=== PATIENT | female | born 1955 | race Caucasian/White ===

== ENCOUNTER 2017-04-24 10:35 | Day surgery (SDC) | payer SELFPAY ==
[2017-04-24 10:57] VITALS: BP 123/77
[2017-04-24] MEDS ORDERED: Dexamethasone 10 MG, Admixture Fee 1 EACH in Sodium Chloride 0.9% 50 ML IVPB SCH (11:15)
[2017-04-24] MEDS ORDERED: ADMIXTURE FEE IVPB SCH ×7 (11:15→11:45)
[2017-04-24] MEDS ORDERED: Palonosetron HCl 0.25 MG, Admixture Fee 1 EACH in Sodium Chloride 0.9% 50 ML IVPB SCH (11:15)
[2017-04-24] MEDS ORDERED: WATER IVPB SCH ×6 (11:15→11:30)
[2017-04-24] MEDS ORDERED: DIPHENHYDRAMINE HCL IVPB SCH (11:15)
[2017-04-24] MEDS ORDERED: SODIUM CHLORIDE IVPB SCH ×4 (11:15→11:45)
[2017-04-24] MEDS ORDERED: DEXTROSE IVPB SCH ×3 (11:15)
[2017-04-24] MEDS ORDERED: OXALIPLATIN IVPB SCH ×6 (11:15→11:30)
[2017-04-24] MEDS ORDERED: LEUCOVORIN CALCIUM IVPB SCH (11:15)
[2017-04-24] MEDS ORDERED: FLUOROURACIL IVPB SCH (11:15)
[2017-04-24] MEDS ORDERED: DEXTROSE 5% IVPB SCH ×3 (11:30)
[2017-04-24] MEDS ORDERED: BEVACIZUMAB IVPB SCH (11:45)
[2017-04-24] MEDS ORDERED: Sodium Chloride 0.9% 20 ML ONE (13:47)
[2017-04-24] MEDS ORDERED: FLU VACC QS2017-18 36 mo. & older 0.5 ML SYRINGE IM ONE (21:00)
== END 2017-04-24 15:57 | disposition home or self-care (01) ==
LOC: ONC/OP 10:35
PROVIDERS: ATTEND Internal Medicine Hematology & Oncology
DX: Z51.11 Encounter for antineoplastic chemotherapy (principal); C18.9 Malignant neoplasm of colon, unspecified; C78.7 Secondary malignant neoplasm of liver and intrahepatic bile duct; C78.6 Secondary malignant neoplasm of retroperitoneum and peritoneum; J44.9 Chronic obstructive pulmonary disease, unspecified; I25.5 Ischemic cardiomyopathy; M81.0 Age-related osteoporosis without current pathological fracture; Z88.1 Allergy status to other antibiotic agents; Z90.49 Acquired absence of other specified parts of digestive tract; Z90.721 Acquired absence of ovaries, unilateral; Z98.890 Other specified postprocedural states; Z85.828 Personal history of other malignant neoplasm of skin; Z80.8 Family history of malignant neoplasm of other organs or systems
CPT/HCPCS: 96367; 96413; 96415; 96417; A4216; J0640; J1100; J1200; J1642; J2469; J7050; J7070; J9190; J9263

== ENCOUNTER 2017-05-08 09:46 | Day surgery (SDC) | payer SELFPAY ==
[2017-05-08 10:03] VITALS: BP 121/72
[2017-05-08] MEDS ORDERED: DIPHENHYDRAMINE HCL IVPB SCH (10:45)
[2017-05-08] MEDS ORDERED: FLUOROURACIL IVPB SCH (10:45)
[2017-05-08] MEDS ORDERED: ADMIXTURE FEE IVPB SCH ×4 (10:45→11:00)
[2017-05-08] MEDS ORDERED: Palonosetron HCl 0.25 MG, Admixture Fee 1 EACH in Sodium Chloride 0.9% 50 ML IVPB SCH (10:45)
[2017-05-08] MEDS ORDERED: SODIUM CHLORIDE IVPB SCH ×4 (10:45→11:00)
[2017-05-08] MEDS ORDERED: Dexamethasone 10 MG, Admixture Fee 1 EACH in Sodium Chloride 0.9% 50 ML IVPB SCH (10:45)
[2017-05-08] MEDS ORDERED: LEUCOVORIN CALCIUM IVPB SCH (10:45)
[2017-05-08] MEDS ORDERED: DEXTROSE 5% IVPB SCH ×3 (11:00)
[2017-05-08] MEDS ORDERED: OXALIPLATIN IVPB SCH ×3 (11:00)
[2017-05-08] MEDS ORDERED: BEVACIZUMAB IVPB SCH (11:00)
[2017-05-08] MEDS ORDERED: WATER IVPB SCH ×3 (11:00)
[2017-05-08] MEDS ORDERED: Sodium Chloride 0.9% 20 ML ONE (12:13)
== END 2017-05-08 15:24 | disposition home or self-care (01) ==
LOC: ONC/OP 09:46
PROVIDERS: ATTEND Internal Medicine Hematology & Oncology
DX: Z51.11 Encounter for antineoplastic chemotherapy (principal); C18.5 Malignant neoplasm of splenic flexure; J44.9 Chronic obstructive pulmonary disease, unspecified; I25.5 Ischemic cardiomyopathy; Z88.1 Allergy status to other antibiotic agents; Z90.49 Acquired absence of other specified parts of digestive tract; Z98.890 Other specified postprocedural states; Z86.73 Personal history of transient ischemic attack (TIA), and cerebral infarction without residual deficits; Z85.828 Personal history of other malignant neoplasm of skin; Z80.8 Family history of malignant neoplasm of other organs or systems
CPT/HCPCS: 96367; 96413; 96415; 96417; A4216; J0640; J1100; J1200; J2469; J7050; J7070; J9035; J9190; J9263

== ENCOUNTER 2017-05-22 11:06 | Day surgery (SDC) | payer SELFPAY ==
[2017-05-22] MEDS ORDERED: Sodium Chloride 0.9% 20 ML ONE (11:23)
[2017-05-22] MEDS ORDERED: Palonosetron HCl 0.25 MG, Admixture Fee 1 EACH in Sodium Chloride 0.9% 50 ML IVPB SCH (11:30)
[2017-05-22] MEDS ORDERED: ADMIXTURE FEE IVPB SCH ×6 (11:45)
[2017-05-22] MEDS ORDERED: BEVACIZUMAB IVPB SCH (11:45)
[2017-05-22] MEDS ORDERED: SODIUM CHLORIDE IVPB SCH ×3 (11:45)
[2017-05-22] MEDS ORDERED: LEUCOVORIN CALCIUM IVPB SCH (11:45)
[2017-05-22] MEDS ORDERED: diphenhydrAMINE 50 MG/ML VIAL IVP SCH (11:45)
[2017-05-22] MEDS ORDERED: DEXTROSE IVPB SCH ×3 (11:45)
[2017-05-22] MEDS ORDERED: Dexamethasone 10 MG, Admixture Fee 1 EACH in Sodium Chloride 0.9% 50 ML IVPB SCH (11:45)
[2017-05-22] MEDS ORDERED: FLUOROURACIL IVPB SCH (11:45)
[2017-05-22] MEDS ORDERED: WATER IVPB SCH ×3 (11:45)
[2017-05-22] MEDS ORDERED: OXALIPLATIN IVPB SCH ×3 (11:45)
[2017-05-22 14:02] LABS: Bilirubin Negative (Negative); Blood, Urine Negative (Negative); Glucose, Urine (Dipstick) Negative (Negative); Ketone, Urine Negative (Negative); Nitrite Negative (Negative); Protein, Urine (Dipstick) Negative (Neg-Trace); Urobilinogen 0.2 mg/dL (0.2-1.0)
[2017-05-22 14:08] LABS: Bacteria/HPF None Seen HPF (None Seen); Hyaline Casts/LPF 0-3 HYALINE CAST LPF (0-3 Hyaline); RBC/HPF None Seen HPF (0-3); Squamous Epithelial None Seen HPF (0-3); WBC/HPF None Seen HPF (0-3)
== END 2017-05-22 17:01 | disposition home or self-care (01) ==
LOC: ONC/OP 11:06
PROVIDERS: ATTEND Internal Medicine Hematology & Oncology
DX: Z51.11 Encounter for antineoplastic chemotherapy (principal); C18.5 Malignant neoplasm of splenic flexure; C77.9 Secondary and unspecified malignant neoplasm of lymph node, unspecified; C78.7 Secondary malignant neoplasm of liver and intrahepatic bile duct; J42 Unspecified chronic bronchitis; I25.5 Ischemic cardiomyopathy; M81.0 Age-related osteoporosis without current pathological fracture; Z79.01 Long term (current) use of anticoagulants; Z79.899 Other long term (current) drug therapy; Z90.721 Acquired absence of ovaries, unilateral; Z90.79 Acquired absence of other genital organ(s); Z90.49 Acquired absence of other specified parts of digestive tract; Z98.890 Other specified postprocedural states; Z88.1 Allergy status to other antibiotic agents; Z87.891 Personal history of nicotine dependence; Z86.718 Personal history of other venous thrombosis and embolism; Z85.828 Personal history of other malignant neoplasm of skin; Z80.8 Family history of malignant neoplasm of other organs or systems
CPT/HCPCS: 81003; 81015; 87086; 96367; 96413; 96415; 96417; 99211; A4216; G0463; J0640; J1100; J1200; J2469; J7050; J7070; J9035; J9190; J9263

== ENCOUNTER 2017-06-05 10:48 | Day surgery (SDC) | payer SELFPAY, OTHER ==
[2017-06-05] MEDS ORDERED: Sodium Chloride 0.9% 20 ML ONE (10:55)
[2017-06-05] MEDS ORDERED: Palonosetron HCl 0.25 MG, Admixture Fee 1 EACH in Sodium Chloride 0.9% 50 ML IVPB SCH (11:30)
[2017-06-05] MEDS ORDERED: ADMIXTURE FEE IVPB SCH ×6 (11:30)
[2017-06-05] MEDS ORDERED: LEUCOVORIN CALCIUM IVPB SCH (11:30)
[2017-06-05] MEDS ORDERED: FLUOROURACIL IVPB SCH (11:30)
[2017-06-05] MEDS ORDERED: DEXTROSE IVPB SCH ×3 (11:30)
[2017-06-05] MEDS ORDERED: WATER IVPB SCH ×3 (11:30)
[2017-06-05] MEDS ORDERED: diphenhydrAMINE 50 MG/ML VIAL IVP SCH (11:30)
[2017-06-05] MEDS ORDERED: BEVACIZUMAB IVPB SCH (11:30)
[2017-06-05] MEDS ORDERED: Dexamethasone 10 MG, Admixture Fee 1 EACH in Sodium Chloride 0.9% 50 ML IVPB SCH (11:30)
[2017-06-05] MEDS ORDERED: OXALIPLATIN IVPB SCH ×3 (11:30)
[2017-06-05] MEDS ORDERED: SODIUM CHLORIDE IVPB SCH ×3 (11:30)
[2017-06-05 12:48] VITALS: BP 120/66
== END 2017-06-05 16:54 | disposition home or self-care (01) ==
LOC: ONC/OP 10:48
PROVIDERS: ATTEND Internal Medicine Hematology & Oncology
DX: Z51.11 Encounter for antineoplastic chemotherapy (principal); C18.5 Malignant neoplasm of splenic flexure; C78.7 Secondary malignant neoplasm of liver and intrahepatic bile duct; C78.6 Secondary malignant neoplasm of retroperitoneum and peritoneum; I25.5 Ischemic cardiomyopathy; J44.9 Chronic obstructive pulmonary disease, unspecified; M81.0 Age-related osteoporosis without current pathological fracture; Z88.1 Allergy status to other antibiotic agents; Z90.49 Acquired absence of other specified parts of digestive tract; Z98.890 Other specified postprocedural states; Z86.73 Personal history of transient ischemic attack (TIA), and cerebral infarction without residual deficits; Z85.828 Personal history of other malignant neoplasm of skin; Z87.891 Personal history of nicotine dependence; Z80.8 Family history of malignant neoplasm of other organs or systems
CPT/HCPCS: 96367; 96375; 96413; 96415; 96417; A4216; J0640; J1100; J1200; J2469; J7050; J7070; J9035; J9190; J9263

== ENCOUNTER 2017-06-19 10:58 | Day surgery (SDC) | payer SELFPAY, OTHER ==
[2017-06-19 11:12] VITALS: BP 117/68; TEMP 98
[2017-06-19] MEDS ORDERED: Sodium Chloride 0.9% 20 ML ONE (11:13)
[2017-06-19] MEDS ORDERED: LEUCOVORIN CALCIUM IVPB SCH (11:30)
[2017-06-19] MEDS ORDERED: ADMIXTURE FEE IVPB SCH ×6 (11:30)
[2017-06-19] MEDS ORDERED: OXALIPLATIN IVPB SCH ×6 (11:30→11:45)
[2017-06-19] MEDS ORDERED: diphenhydrAMINE 50 MG/ML VIAL IVP SCH (11:30)
[2017-06-19] MEDS ORDERED: FLUOROURACIL IVPB SCH (11:30)
[2017-06-19] MEDS ORDERED: SODIUM CHLORIDE IVPB SCH ×3 (11:30)
[2017-06-19] MEDS ORDERED: DEXTROSE IVPB SCH ×3 (11:30)
[2017-06-19] MEDS ORDERED: Dexamethasone 10 MG, Admixture Fee 1 EACH in Sodium Chloride 0.9% 50 ML IVPB SCH (11:30)
[2017-06-19] MEDS ORDERED: BEVACIZUMAB IVPB SCH (11:30)
[2017-06-19] MEDS ORDERED: Palonosetron HCl 0.25 MG, Admixture Fee 1 EACH in Sodium Chloride 0.9% 50 ML IVPB SCH (11:30)
[2017-06-19] MEDS ORDERED: WATER IVPB SCH ×6 (11:30→11:45)
[2017-06-19] MEDS ORDERED: DEXTROSE 5% IVPB SCH ×3 (11:45)
[2017-06-19] MEDS ORDERED: FLU VACC QS2017-18 36 mo. & older 0.5 ML SYRINGE IM ONE (17:00)
== END 2017-06-19 17:13 | disposition home or self-care (01) ==
LOC: ONC/OP 10:58
PROVIDERS: ATTEND Internal Medicine Hematology & Oncology
DX: Z51.11 Encounter for antineoplastic chemotherapy (principal); C18.5 Malignant neoplasm of splenic flexure; C78.7 Secondary malignant neoplasm of liver and intrahepatic bile duct; C78.6 Secondary malignant neoplasm of retroperitoneum and peritoneum; I42.9 Cardiomyopathy, unspecified; J42 Unspecified chronic bronchitis; J45.909 Unspecified asthma, uncomplicated; M81.0 Age-related osteoporosis without current pathological fracture; Z79.01 Long term (current) use of anticoagulants; Z79.899 Other long term (current) drug therapy; Z88.8 Allergy status to other drugs, medicaments and biological substances; Z90.721 Acquired absence of ovaries, unilateral; Z90.79 Acquired absence of other genital organ(s); Z90.49 Acquired absence of other specified parts of digestive tract; Z98.890 Other specified postprocedural states; Z87.891 Personal history of nicotine dependence; Z86.73 Personal history of transient ischemic attack (TIA), and cerebral infarction without residual deficits
CPT/HCPCS: 90471; 90682; 96367; 96372; 96413; 96415; 96417; A4216; G0008; J0640; J1100; J2469; J7050; J7070; J9035; J9190; J9263; Q2036

== ENCOUNTER 2017-07-03 10:23 | Day surgery (SDC) | payer SELFPAY ==
[2017-07-03] MEDS ORDERED: Sodium Chloride 0.9% 20 ML ONE (11:05)
[2017-07-03] MEDS ORDERED: FLUOROURACIL IVPB SCH (11:15)
[2017-07-03] MEDS ORDERED: diphenhydrAMINE 50 MG/ML VIAL IVP SCH (11:15)
[2017-07-03] MEDS ORDERED: DEXTROSE IVPB SCH ×3 (11:15)
[2017-07-03] MEDS ORDERED: ADMIXTURE FEE IVPB SCH ×6 (11:15)
[2017-07-03] MEDS ORDERED: SODIUM CHLORIDE IVPB SCH ×3 (11:15)
[2017-07-03] MEDS ORDERED: Palonosetron HCl 0.25 MG, Admixture Fee 1 EACH in Sodium Chloride 0.9% 50 ML IVPB SCH (11:15)
[2017-07-03] MEDS ORDERED: Dexamethasone 10 MG, Admixture Fee 1 EACH in Sodium Chloride 0.9% 50 ML IVPB SCH (11:15)
[2017-07-03] MEDS ORDERED: BEVACIZUMAB IVPB SCH (11:15)
[2017-07-03] MEDS ORDERED: OXALIPLATIN IVPB SCH ×3 (11:15)
[2017-07-03] MEDS ORDERED: LEUCOVORIN CALCIUM IVPB SCH (11:15)
[2017-07-03] MEDS ORDERED: WATER IVPB SCH ×3 (11:15)
[2017-07-03 11:49] VITALS: BP 107/65; TEMP 97.7
== END 2017-07-03 16:37 | disposition home or self-care (01) ==
LOC: ONC/OP 10:23
PROVIDERS: ATTEND Internal Medicine Hematology & Oncology
DX: Z51.11 Encounter for antineoplastic chemotherapy (principal); C18.5 Malignant neoplasm of splenic flexure; Z88.1 Allergy status to other antibiotic agents; C78.7 Secondary malignant neoplasm of liver and intrahepatic bile duct; C78.6 Secondary malignant neoplasm of retroperitoneum and peritoneum; I10 Essential (primary) hypertension; M81.0 Age-related osteoporosis without current pathological fracture; I25.5 Ischemic cardiomyopathy; J45.909 Unspecified asthma, uncomplicated; Z86.73 Personal history of transient ischemic attack (TIA), and cerebral infarction without residual deficits; Z85.828 Personal history of other malignant neoplasm of skin; Z87.891 Personal history of nicotine dependence; Z79.01 Long term (current) use of anticoagulants; Z79.899 Other long term (current) drug therapy; Z90.49 Acquired absence of other specified parts of digestive tract; Z90.721 Acquired absence of ovaries, unilateral; Z98.890 Other specified postprocedural states
CPT/HCPCS: 96367; 96413; 96415; 96417; A4216; J0640; J1100; J1200; J2469; J7050; J7070; J9035; J9190; J9263

== ENCOUNTER 2017-07-17 10:15 | Day surgery (SDC) | payer SELFPAY ==
[2017-07-17] MEDS ORDERED: OXALIPLATIN IVPB SCH ×3 (10:45)
[2017-07-17] MEDS ORDERED: DEXTROSE IVPB SCH ×3 (10:45)
[2017-07-17] MEDS ORDERED: BEVACIZUMAB IVPB SCH (10:45)
[2017-07-17] MEDS ORDERED: ADMIXTURE FEE IVPB SCH ×6 (10:45)
[2017-07-17] MEDS ORDERED: SODIUM CHLORIDE IVPB SCH ×3 (10:45)
[2017-07-17] MEDS ORDERED: LEUCOVORIN CALCIUM IVPB SCH (10:45)
[2017-07-17] MEDS ORDERED: Dexamethasone 10 MG, Admixture Fee 1 EACH in Sodium Chloride 0.9% 50 ML IVPB SCH (10:45)
[2017-07-17] MEDS ORDERED: diphenhydrAMINE 50 MG/ML VIAL IVP SCH (10:45)
[2017-07-17] MEDS ORDERED: FLUOROURACIL IVPB SCH (10:45)
[2017-07-17] MEDS ORDERED: Palonosetron HCl 0.25 MG, Admixture Fee 1 EACH in Sodium Chloride 0.9% 50 ML IVPB SCH (10:45)
[2017-07-17] MEDS ORDERED: WATER IVPB SCH ×3 (10:45)
[2017-07-17 11:11] VITALS: BP 114/60
[2017-07-17] MEDS ORDERED: Sodium Chloride 0.9% 30 ML ONE (12:03)
[2017-07-17] MEDS ORDERED: Admixture Fee 1 EACH in Dextrose 5% in Water 10 ML FS SCH ×2 (13:00)
== END 2017-07-17 17:10 | disposition home or self-care (01) ==
LOC: ONC/OP 10:15
PROVIDERS: ATTEND Internal Medicine Hematology & Oncology
DX: Z51.11 Encounter for antineoplastic chemotherapy (principal); C18.9 Malignant neoplasm of colon, unspecified; C78.7 Secondary malignant neoplasm of liver and intrahepatic bile duct; C78.6 Secondary malignant neoplasm of retroperitoneum and peritoneum; J45.909 Unspecified asthma, uncomplicated; I25.5 Ischemic cardiomyopathy; M81.0 Age-related osteoporosis without current pathological fracture; Z88.1 Allergy status to other antibiotic agents; Z79.899 Other long term (current) drug therapy; Z90.49 Acquired absence of other specified parts of digestive tract; Z98.890 Other specified postprocedural states; Z86.73 Personal history of transient ischemic attack (TIA), and cerebral infarction without residual deficits; Z85.828 Personal history of other malignant neoplasm of skin; Z80.8 Family history of malignant neoplasm of other organs or systems
CPT/HCPCS: 96367; 96375; 96413; 96415; 96417; A4216; J0640; J1100; J1200; J2469; J7050; J7070; J9190; J9263

== ENCOUNTER 2017-08-15 09:52 | Day surgery (SDC) | payer SELFPAY ==
[2017-08-15] MEDS ORDERED: Sodium Chloride 0.9% 20 ML ONE (10:04)
[2017-08-15] MEDS ORDERED: Dexamethasone 10 MG in Sodium Chloride 0.9% 50 ML IVPB SCH (10:15)
[2017-08-15] MEDS ORDERED: OXALIPLATIN IVPB SCH (10:15)
[2017-08-15] MEDS ORDERED: DEXTROSE 5% IVPB SCH (10:15)
[2017-08-15] MEDS ORDERED: diphenhydrAMINE 50 MG/ML VIAL IVP SCH ×2 (10:15→10:30)
[2017-08-15] MEDS ORDERED: WATER IVPB SCH (10:15)
[2017-08-15] MEDS ORDERED: Palonosetron HCl 0.25 MG in Sodium Chloride 0.9% 50 ML IVPB SCH (10:15)
[2017-08-15] MEDS ORDERED: Fluorouracil 700 MG in Sodium Chloride 0.9% 50 ML IVPB SCH (10:15)
[2017-08-15] MEDS ORDERED: Bevacizumab 330 MG in Sodium Chloride 0.9% 100 ML IVPB SCH (10:15)
[2017-08-15] MEDS ORDERED: PALONOSETRON HCL 0.05 MG/ML 5 ML VIAL IVP SCH (10:30)
[2017-08-15] MEDS ORDERED: SODIUM CHLORIDE 0.9% IVPB SCH (10:30)
[2017-08-15] MEDS ORDERED: BEVACIZUMAB IVPB SCH (10:30)
[2017-08-15] MEDS ORDERED: Dexamethasone 4 mg/ml Vial SLOW IVP SCH (10:30)
[2017-08-15] MEDS: Admixture Fee 1 EACH in Dextrose 5% in Water 10 ML FS SCH ×2 (12:05→14:40)
[2017-08-15] MEDS ORDERED: Admixture Fee 1 EACH in Dextrose 5% in Water 10 ML FS SCH (12:15)
[2017-08-15] MEDS ORDERED: Dextrose 5% in Water 10 ML IVPB SCH (12:15)
[2017-08-15 12:40] VITALS: BP 129/72; TEMP 96.3
== END 2017-08-15 16:23 | disposition home or self-care (01) ==
LOC: ONC/OP 09:52
PROVIDERS: ATTEND Internal Medicine Hematology & Oncology
DX: Z51.11 Encounter for antineoplastic chemotherapy (principal); C18.5 Malignant neoplasm of splenic flexure; J45.909 Unspecified asthma, uncomplicated; I25.5 Ischemic cardiomyopathy; M81.0 Age-related osteoporosis without current pathological fracture; Z88.1 Allergy status to other antibiotic agents; Z90.49 Acquired absence of other specified parts of digestive tract; Z98.890 Other specified postprocedural states; Z85.828 Personal history of other malignant neoplasm of skin; Z86.73 Personal history of transient ischemic attack (TIA), and cerebral infarction without residual deficits; Z87.891 Personal history of nicotine dependence; Z80.8 Family history of malignant neoplasm of other organs or systems
CPT/HCPCS: 96367; 96375; 96413; 96415; 96417; A4216; J0640; J1100; J1200; J2469; J7050; J7070; J9035; J9190; J9263

== ENCOUNTER 2017-08-28 10:47 | Day surgery (SDC) | payer SELFPAY ==
[2017-08-28] MEDS ORDERED: Sodium Chloride 0.9% 40 ML ONE (10:50)
[2017-08-28] MEDS ORDERED: Dexamethasone 4 mg/ml Vial SLOW IVP SCH (11:00)
[2017-08-28] MEDS ORDERED: LEUCOVORIN CALCIUM IVPB SCH (11:00)
[2017-08-28] MEDS ORDERED: diphenhydrAMINE 50 MG/ML VIAL IVP SCH (11:00)
[2017-08-28] MEDS ORDERED: ADMIXTURE FEE IVPB SCH ×3 (11:00→11:15)
[2017-08-28] MEDS ORDERED: PALONOSETRON HCL 0.05 MG/ML 5 ML VIAL IVP SCH (11:00)
[2017-08-28] MEDS ORDERED: SODIUM CHLORIDE IVPB SCH ×3 (11:00→11:15)
[2017-08-28] MEDS ORDERED: FLUOROURACIL IVPB SCH (11:00)
[2017-08-28] MEDS ORDERED: BEVACIZUMAB IVPB SCH (11:15)
[2017-08-28 12:04] VITALS: BP 118/61
== END 2017-08-28 15:50 | disposition home or self-care (01) ==
LOC: ONC/OP 10:47
PROVIDERS: ATTEND Internal Medicine Hematology & Oncology
DX: Z51.11 Encounter for antineoplastic chemotherapy (principal); C18.5 Malignant neoplasm of splenic flexure; C78.7 Secondary malignant neoplasm of liver and intrahepatic bile duct; C78.6 Secondary malignant neoplasm of retroperitoneum and peritoneum; J42 Unspecified chronic bronchitis; I25.5 Ischemic cardiomyopathy; M81.0 Age-related osteoporosis without current pathological fracture; Z79.01 Long term (current) use of anticoagulants; Z79.899 Other long term (current) drug therapy; Z88.1 Allergy status to other antibiotic agents; Z90.49 Acquired absence of other specified parts of digestive tract; Z90.79 Acquired absence of other genital organ(s); Z90.721 Acquired absence of ovaries, unilateral; Z98.890 Other specified postprocedural states; Z86.73 Personal history of transient ischemic attack (TIA), and cerebral infarction without residual deficits; Z85.828 Personal history of other malignant neoplasm of skin; Z87.891 Personal history of nicotine dependence; Z80.8 Family history of malignant neoplasm of other organs or systems
CPT/HCPCS: 96367; 96375; 96413; 96417; A4216; J0640; J1100; J1200; J2469; J7050; J9035; J9190

== ENCOUNTER 2017-09-11 10:51 | Day surgery (SDC) | payer SELFPAY ==
[2017-09-11] MEDS ORDERED: Dexamethasone 4 mg/ml Vial SLOW IVP SCH (11:15)
[2017-09-11] MEDS ORDERED: PALONOSETRON HCL 0.05 MG/ML 5 ML VIAL IVP SCH (11:15)
[2017-09-11] MEDS ORDERED: diphenhydrAMINE 50 MG/ML VIAL IVP SCH (11:15)
[2017-09-11] MEDS ORDERED: Sodium Chloride 0.9% 50 ML ONE (11:20)
[2017-09-11] MEDS ORDERED: Dexamethasone 10 MG/ML VIAL SLOW IVP SCH (11:45)
[2017-09-11] MEDS ORDERED: LEUCOVORIN CALCIUM IVPB SCH (12:00)
[2017-09-11] MEDS ORDERED: ADMIXTURE FEE IVPB SCH ×3 (12:00)
[2017-09-11] MEDS ORDERED: SODIUM CHLORIDE IVPB SCH ×3 (12:00)
[2017-09-11] MEDS ORDERED: BEVACIZUMAB IVPB SCH (12:00)
[2017-09-11] MEDS ORDERED: FLUOROURACIL IVPB SCH (12:00)
[2017-09-11 13:32] VITALS: BP 120/76; TEMP 97.9
== END 2017-09-11 17:20 | disposition home or self-care (01) ==
LOC: ONC/OP 10:51
PROVIDERS: ATTEND Internal Medicine Hematology & Oncology
DX: Z51.11 Encounter for antineoplastic chemotherapy (principal); C18.5 Malignant neoplasm of splenic flexure; C78.7 Secondary malignant neoplasm of liver and intrahepatic bile duct; C78.6 Secondary malignant neoplasm of retroperitoneum and peritoneum; I25.5 Ischemic cardiomyopathy; M81.0 Age-related osteoporosis without current pathological fracture; J42 Unspecified chronic bronchitis; J45.909 Unspecified asthma, uncomplicated; Z79.01 Long term (current) use of anticoagulants; Z79.899 Other long term (current) drug therapy; Z88.1 Allergy status to other antibiotic agents; Z90.49 Acquired absence of other specified parts of digestive tract; Z90.79 Acquired absence of other genital organ(s); Z90.721 Acquired absence of ovaries, unilateral; Z98.890 Other specified postprocedural states; Z87.891 Personal history of nicotine dependence; Z86.73 Personal history of transient ischemic attack (TIA), and cerebral infarction without residual deficits; Z85.828 Personal history of other malignant neoplasm of skin
CPT/HCPCS: 96367; 96375; 96413; 96417; A4216; J0640; J1100; J1200; J2469; J7050; J9035; J9190

== ENCOUNTER 2017-09-25 11:48 | Day surgery (SDC) | payer SELFPAY ==
[2017-09-25] MEDS ORDERED: Dexamethasone 4 mg/ml Vial SLOW IVP SCH (12:00)
[2017-09-25] MEDS ORDERED: Sodium Chloride 0.9% 30 ML ONE (12:00)
[2017-09-25] MEDS ORDERED: diphenhydrAMINE 50 MG/ML VIAL IVP SCH (12:00)
[2017-09-25] MEDS ORDERED: PALONOSETRON HCL 0.05 MG/ML 5 ML VIAL IVP SCH (12:00)
[2017-09-25 12:25] VITALS: BP 116/68; TEMP 97.5
[2017-09-25] MEDS ORDERED: ADMIXTURE FEE IVPB SCH ×3 (13:00)
[2017-09-25] MEDS ORDERED: SODIUM CHLORIDE IVPB SCH ×3 (13:00)
[2017-09-25] MEDS ORDERED: FLUOROURACIL IVPB SCH (13:00)
[2017-09-25] MEDS ORDERED: LEUCOVORIN CALCIUM IVPB SCH (13:00)
[2017-09-25] MEDS ORDERED: BEVACIZUMAB IVPB SCH (13:00)
== END 2017-09-25 17:00 | disposition home or self-care (01) ==
LOC: ONC/OP 11:48
PROVIDERS: ATTEND Internal Medicine Hematology & Oncology
DX: Z51.11 Encounter for antineoplastic chemotherapy (principal); C18.5 Malignant neoplasm of splenic flexure; I25.5 Ischemic cardiomyopathy; M81.0 Age-related osteoporosis without current pathological fracture; Z79.01 Long term (current) use of anticoagulants; Z79.899 Other long term (current) drug therapy; Z88.1 Allergy status to other antibiotic agents; Z86.73 Personal history of transient ischemic attack (TIA), and cerebral infarction without residual deficits; Z85.828 Personal history of other malignant neoplasm of skin; Z87.891 Personal history of nicotine dependence
CPT/HCPCS: 96367; 96375; 96413; 96416; 96417; A4216; J0640; J1100; J1200; J2469; J7050; J9035; J9190

== ENCOUNTER 2017-10-09 11:24 | Day surgery (SDC) | payer SELFPAY ==
[2017-10-09] MEDS ORDERED: Fluorouracil 700 MG in Sodium Chloride 0.9% 50 ML IVPB SCH (11:45)
[2017-10-09] MEDS ORDERED: Dexamethasone 10 MG/ML VIAL SLOW IVP SCH (11:45)
[2017-10-09] MEDS ORDERED: Bevacizumab 330 MG in Sodium Chloride 0.9% 100 ML IVPB SCH (11:45)
[2017-10-09] MEDS ORDERED: PALONOSETRON HCL 0.05 MG/ML 5 ML VIAL IVP SCH ×2 (11:45→15:00)
[2017-10-09] MEDS ORDERED: diphenhydrAMINE 50 MG/ML VIAL IVP SCH (11:45)
[2017-10-09] MEDS ORDERED: Sodium Chloride 0.9% 30 ML ONE (11:57)
[2017-10-09] MEDS ORDERED: BEVACIZUMAB IVPB SCH (12:00)
[2017-10-09] MEDS ORDERED: SODIUM CHLORIDE 0.9% IVPB SCH (12:00)
[2017-10-09 15:05] VITALS: BP 126/59; TEMP 98
== END 2017-10-09 16:05 | disposition home or self-care (01) ==
LOC: ONC/OP 11:24
PROVIDERS: ATTEND Internal Medicine Hematology & Oncology
DX: Z51.11 Encounter for antineoplastic chemotherapy (principal); C18.5 Malignant neoplasm of splenic flexure; C78.7 Secondary malignant neoplasm of liver and intrahepatic bile duct; J44.9 Chronic obstructive pulmonary disease, unspecified; I25.5 Ischemic cardiomyopathy; M81.0 Age-related osteoporosis without current pathological fracture; Z87.891 Personal history of nicotine dependence; Z86.73 Personal history of transient ischemic attack (TIA), and cerebral infarction without residual deficits; Z93.3 Colostomy status; Z79.899 Other long term (current) drug therapy; Z79.01 Long term (current) use of anticoagulants; Z79.51 Long term (current) use of inhaled steroids; Z88.1 Allergy status to other antibiotic agents; Z90.49 Acquired absence of other specified parts of digestive tract
CPT/HCPCS: 96367; 96375; 96413; 96416; 96417; A4216; J0640; J1100; J1200; J2469; J7050; J9035; J9190

== ENCOUNTER 2017-10-23 11:33 | Day surgery (SDC) | payer SELFPAY ==
[2017-10-23] MEDS ORDERED: PALONOSETRON HCL 0.05 MG/ML 5 ML VIAL IVP SCH (11:45)
[2017-10-23] MEDS ORDERED: Fluorouracil 700 MG in Sodium Chloride 0.9% 50 ML IVPB SCH (11:45)
[2017-10-23] MEDS ORDERED: Dexamethasone 10 MG/ML VIAL SLOW IVP SCH (11:45)
[2017-10-23] MEDS ORDERED: diphenhydrAMINE 50 MG/ML VIAL IVP SCH (11:45)
[2017-10-23] MEDS ORDERED: SODIUM CHLORIDE 0.9% IVPB SCH (12:00)
[2017-10-23] MEDS ORDERED: Bevacizumab 330 MG in Sodium Chloride 0.9% 100 ML IVPB SCH (12:00)
[2017-10-23] MEDS ORDERED: BEVACIZUMAB IVPB SCH (12:00)
[2017-10-23] MEDS ORDERED: Sodium Chloride 0.9% 50 ML ONE (12:18)
== END 2017-10-23 14:28 | disposition home or self-care (01) ==
LOC: ONC/OP 11:33
PROVIDERS: ATTEND Internal Medicine Hematology & Oncology
DX: Z51.11 Encounter for antineoplastic chemotherapy (principal); C18.5 Malignant neoplasm of splenic flexure; J45.909 Unspecified asthma, uncomplicated; M81.0 Age-related osteoporosis without current pathological fracture; I25.10 Atherosclerotic heart disease of native coronary artery without angina pectoris; I25.5 Ischemic cardiomyopathy; Z90.49 Acquired absence of other specified parts of digestive tract; Z86.73 Personal history of transient ischemic attack (TIA), and cerebral infarction without residual deficits; Z85.828 Personal history of other malignant neoplasm of skin; Z87.891 Personal history of nicotine dependence
CPT/HCPCS: 96367; 96375; 96413; 96416; 96417; A4216; J0640; J1100; J1200; J2469; J7050; J9035; J9190

== ENCOUNTER 2017-11-02 09:07 | Outpatient (CLI) | payer OTHER ==
[2017-11-02] MEDS ORDERED: ISOVUE-370 76%-LOCM 1 ML ONE (16:25)
== END 2017-11-02 09:08 | disposition home or self-care (01) ==
LOC: BICCT 09:07
PROVIDERS: ATTEND Internal Medicine Hematology & Oncology
DX: C18.9 Malignant neoplasm of colon, unspecified (principal); R16.0 Hepatomegaly, not elsewhere classified
CPT/HCPCS: 74177

== ENCOUNTER 2017-11-06 10:49 | Day surgery (SDC) | payer SELFPAY ==
[2017-11-06] MEDS ORDERED: Sodium Chloride 0.9% 50 ML ONE (11:03)
[2017-11-06] MEDS ORDERED: diphenhydrAMINE 50 MG/ML VIAL IVP SCH (11:15)
[2017-11-06] MEDS ORDERED: Fluorouracil 700 MG in Sodium Chloride 0.9% 50 ML IVPB SCH (11:15)
[2017-11-06] MEDS ORDERED: Dexamethasone 10 MG/ML VIAL SLOW IVP SCH (11:15)
[2017-11-06] MEDS ORDERED: PALONOSETRON HCL 0.05 MG/ML 5 ML VIAL IVP SCH (11:15)
[2017-11-06] MEDS ORDERED: Bevacizumab 330 MG in Sodium Chloride 0.9% 100 ML IVPB SCH (11:15)
[2017-11-06] MEDS ORDERED: SODIUM CHLORIDE 0.9% IVPB SCH (11:30)
[2017-11-06] MEDS ORDERED: BEVACIZUMAB IVPB SCH (11:30)
[2017-11-06 12:35] VITALS: BP 119/70; TEMP 97.5
== END 2017-11-06 13:37 | disposition home or self-care (01) ==
LOC: ONC/OP 10:49
PROVIDERS: ATTEND Internal Medicine Hematology & Oncology
DX: Z51.11 Encounter for antineoplastic chemotherapy (principal); C18.5 Malignant neoplasm of splenic flexure; C78.7 Secondary malignant neoplasm of liver and intrahepatic bile duct; C78.6 Secondary malignant neoplasm of retroperitoneum and peritoneum; J42 Unspecified chronic bronchitis; J45.909 Unspecified asthma, uncomplicated; I42.8 Other cardiomyopathies; I25.5 Ischemic cardiomyopathy; M81.0 Age-related osteoporosis without current pathological fracture; Z79.01 Long term (current) use of anticoagulants; Z79.899 Other long term (current) drug therapy; Z90.49 Acquired absence of other specified parts of digestive tract; Z86.73 Personal history of transient ischemic attack (TIA), and cerebral infarction without residual deficits; Z87.891 Personal history of nicotine dependence
CPT/HCPCS: 96367; 96375; 96413; 96416; 96417; A4216; J0640; J1100; J1200; J2469; J7050; J9035; J9190

== ENCOUNTER 2017-11-22 12:13 | Observation (INO) | payer SELFPAY ==
[2017-11-21 09:12] VITALS: BMI 21.9
[2017-11-22] MEDS ORDERED: Ondansetron HCl/PF 4 MG/2 ML Vial ONE ×2 (13:13→16:22)
[2017-11-22] MEDS ORDERED: PROPOFOL 200 MG/20 ML VIAL ONE (13:13)
[2017-11-22] MEDS ORDERED: PHENYLEPHRINE-NS 100 MCG/ML 10 ML SYRINGE ONE (13:13)
[2017-11-22 13:18] LABS: #Basophils 0.1 thou/uL (0.0-0.2); #Eosinphils 0.1 thou/uL (0.0-0.7); #Monocytes 0.7 thou/uL (0.11-0.59); #Neutrophils 3.1 thou/uL (1.40-6.50); %Basophils 1.1 % (0.0-1.0); %Eosinophils 1.2 % (0.0-10.0); %Lymphocytes 34.2 % (21.0-51.0); %Monocytes 11.2 % (0.0-10.0); %Neutrophils 52.3 % (42.0-75.0); Hemoglobin 12.1 g/dL (12.0-16.0); INR-International Normal Ratio 1.1; Mean Corpuscular HGB CONC 34.2 g/dL (32.0-36.0); Mean Corpuscular Volume 93.6 fl (81.0-99.0); Mean Platelet Volume 8.8 fL (7.4-10.4); Platelet Count 213 thou/uL (130-400); Prothrombin Time 14.3 SEC (12.0-14.7); RBC Distribution Width 16.2 % (11.5-14.5); Red Blood Cell (RBC) Count 3.77 mill/uL (4.20-5.40); White Blood Cell (WBC) Count 5.9 thou/uL (4.8-10.8)
[2017-11-22 13:21] LABS: PTT 20.7 SEC (22.9-36.1)
[2017-11-22 13:30] LABS: Anion Gap 13 mmol/L (10-20); BUN (Urea Nitrogen) 20 mg/dL (9.8-20.1); Calc. Creatinine Clearance 49 mL/min (70-130); Calcium 10.7 mg/dL (7.8-10.44); Carbon Dioxide 25 mmol/L (23-31); Chloride 105 mmol/L (98-107); Estimated GFR-MDRD 47; Glucose 99 mg/dL (80-115); Potassium 4.7 mmol/L (3.5-5.1); Sodium 138 mmol/L (136-145)
[2017-11-22] MEDS ORDERED: Sodium Chloride 0.9% 10 ML ONE (13:38)
[2017-11-22] MEDS ORDERED: Fentanyl 100 MCG/2 ML VIAL ONE ×2 (14:13→18:07)
[2017-11-22] MEDS ORDERED: Propofol 500 MG/50 ML VIAL ONE (15:09)
[2017-11-22] MEDS ORDERED: Midazolam HCl 2 mg/2 ml Vial ONE (15:10)
[2017-11-22] MEDS ORDERED: Lidocaine 1% (PF) 30 ML VIAL ONE ×2 (15:15→15:57)
[2017-11-22] MEDS ORDERED: CEFAZOLIN/Water 2 GM/20 ML SYRINGE ONE (15:16)
[2017-11-22] MEDS ORDERED: Phenylephrine HCL 10 MG/ML VIAL ONE (15:17)
[2017-11-22] MEDS ORDERED: Ketamine 50 MG/ML VIAL ONE (17:15)
[2017-11-22] MEDS ORDERED: Promethazine HCl 25 MG/ML VIAL SLOW IVP PRN (18:24)
[2017-11-22] MEDS ORDERED: Ondansetron HCl/PF 4 MG/2 ML Vial IVP PRN (18:24)
[2017-11-22] MEDS ORDERED: Promethazine HCl 25 MG/ML VIAL IM PRN (18:24)
--- NOTE | 2017-11-22 18:52 | RAD ---
PORTABLE SUPINE FRONTAL CHEST RADIOGRAPH 11/22/17 COMPARISON: 01/10/17 HISTORY: Evaluate chest following cardiac device placement. FINDINGS: There is a right sided Port-A-Cath, distal tip overlying the region of the cavoatrial junction. There is a three lead AICD in place, inserted via left subclavian approach, with leads overlying the regio n of the right atrium, right ventricle and coronary sinus. Supine imaging limits assessment for pneum othorax and pleural fluid. There is mild increased linear density in the medial left lung base which may signify volume loss. IMPRESSION: Three lead transvenous pacing device as above. POS: RUBENS
[2017-11-22] MEDS ORDERED: HYDROcodone/Acetaminophen 10/325 mg Tablet PO PRN (19:55)
[2017-11-22] MEDS ORDERED: Nortriptyline HCl 25 MG CAP PO PRN (19:56)
[2017-11-22] MEDS ORDERED: PROVENTIL INHALER 6.7 G (200 INHALATIONS) INH PRN (19:58)
[2017-11-22] MEDS: Carvedilol 3.125 MG TAB PO SCH (20:14)
[2017-11-22] MEDS: Ondansetron ODT 4 MG TAB PO PRN (20:18)
[2017-11-22] MEDS ORDERED: Montelukast Sodium 10 mg Tablet PO SCH (21:00)
[2017-11-23] MEDS: CEFAZOLIN 1 GM, Syringe 2.5 ML in Sterile Water 7.5 ML SLOW IVP SCH ×2 (00:01→08:18)
[2017-11-23] MEDS: Cephalexin 250 MG CAP PO SCH ×3 (00:01→11:39)
[2017-11-23] MEDS: HYDROcodone/Acetaminophen 10/325 mg Tablet PO PRN ×4 (00:09→11:38)
[2017-11-23] MEDS: Ondansetron ODT 4 MG TAB PO PRN ×4 (00:14→11:40)
[2017-11-23] MEDS ORDERED: Mometasone/Formoterol 120 PUFF INHALER INH SCH (06:30)
[2017-11-23] MEDS: Carvedilol 3.125 MG TAB PO SCH (08:17)
[2017-11-23] MEDS ORDERED: Lisinopril 5 MG TAB PO SCH (09:00)
[2017-11-23] MEDS ORDERED: Furosemide 40 MG TAB PO SCH (09:00)
[2017-11-23] MEDS ORDERED: Apixaban 5 MG TAB PO SCH (09:00)
[2017-11-23 12:16] VITALS: BP 123/75; TEMP 96.8
--- NOTE | 2017-11-23 13:31 | DIS ---
SUBJECTIVE: Ms. Weaver has a mild side discomfort with otherwise, no major issues overnight. VITAL SIGNS: Blood pressure is 122/71, heart rate 82, O2 sat 92%, respiratory rate 16, temperature 97.2 degrees Fahrenheit. Chest x-ray postoperative revealed no pneumothorax and adequate lead position noted. Interrogation of her device reveals a [employer]onic biventricular ICD with lead parameters are adequate, sensing 2.1 millivolts and 3.9 millivolts respectively. Capture thresholds are 0.5 volts at 0.4, 0.625 volts at 0.4 and 2 volts and 1.875 with 0.4 milliseconds respectively, impedance 399, 456 and 437 ohms. CONCLUSION: Adequate functioning biventricular ICD one day post-implant. Stable patient. Discharge home with routine followup in 2 weeks. Antibiotics for 1 week. MTDD
[2017-11-23] MEDS ORDERED: Iopamidol 370 76% 50 ML VIAL FS ONE (20:17)
== END 2017-11-23 13:06 | disposition home or self-care (01) ==
LOC: CCL 12:13 → 2SW 18:36
PROVIDERS: ADMIT Internal Medicine Cardiovascular Disease; ATTEND Internal Medicine Cardiovascular Disease
PROC: 0JH608Z Insertion of Defibrillator Generator into Chest Subcutaneous Tissue and Fascia, Open Approach (ICD-10-PCS; principal; 2017-11-23)
PROC: 02H63KZ Insertion of Defibrillator Lead into Right Atrium, Percutaneous Approach (ICD-10-PCS; 2017-11-23)
PROC: 02HK3KZ Insertion of Defibrillator Lead into Right Ventricle, Percutaneous Approach (ICD-10-PCS; 2017-11-23)
PROC: 4B02XTZ Measurement of Cardiac Defibrillator, External Approach (ICD-10-PCS; 2017-11-23)
DX: I44.7 Left bundle-branch block, unspecified (principal); I42.8 Other cardiomyopathies; I50.9 Heart failure, unspecified; C18.9 Malignant neoplasm of colon, unspecified; C78.7 Secondary malignant neoplasm of liver and intrahepatic bile duct; K59.00 Constipation, unspecified; Z79.01 Long term (current) use of anticoagulants; Z79.899 Other long term (current) drug therapy; Z88.1 Allergy status to other antibiotic agents; Z95.828 Presence of other vascular implants and grafts; Z90.721 Acquired absence of ovaries, unilateral; Z90.49 Acquired absence of other specified parts of digestive tract; Z98.890 Other specified postprocedural states
CPT/HCPCS: 33225; 33249; 36005; 36415; 71045; 75820; 80048; 85025; 85610; 85730; 93798; 96374; 96375; A4216; C1777; C1882; C1898; C1900; G0378; J0690; J1642; J2001; J2250; J2370; J2405; J2704; J3010; J3490; Q0162

== ENCOUNTER 2017-11-27 11:39 | Day surgery (SDC) | payer SELFPAY ==
[2017-11-27] MEDS ORDERED: Sodium Chloride 0.9% 40 ML ONE (11:57)
[2017-11-27] MEDS ORDERED: Bevacizumab 330 MG in Sodium Chloride 0.9% 100 ML IVPB SCH (12:00)
[2017-11-27] MEDS ORDERED: Dexamethasone 10 MG/ML VIAL SLOW IVP SCH (12:00)
[2017-11-27] MEDS ORDERED: PALONOSETRON HCL 0.05 MG/ML 5 ML VIAL IVP SCH (12:00)
[2017-11-27] MEDS ORDERED: diphenhydrAMINE 50 MG/ML VIAL IVP SCH (12:00)
[2017-11-27] MEDS ORDERED: Fluorouracil 700 MG in Sodium Chloride 0.9% 50 ML IVPB SCH (12:00)
[2017-11-27] MEDS ORDERED: BEVACIZUMAB IVPB SCH (12:15)
[2017-11-27] MEDS ORDERED: SODIUM CHLORIDE 0.9% IVPB SCH (12:15)
== END 2017-11-27 15:12 | disposition home or self-care (01) ==
LOC: ONC/OP 11:39
PROVIDERS: ATTEND Internal Medicine Hematology & Oncology
DX: Z51.11 Encounter for antineoplastic chemotherapy (principal); C18.5 Malignant neoplasm of splenic flexure; C78.7 Secondary malignant neoplasm of liver and intrahepatic bile duct; Z88.1 Allergy status to other antibiotic agents
CPT/HCPCS: 96367; 96375; 96413; 96416; 96417; A4216; J0640; J1100; J1200; J2469; J7050; J9035; J9190

== ENCOUNTER 2017-12-11 12:41 | Day surgery (SDC) | payer SELFPAY ==
[2017-12-11 12:58] VITALS: BP 129/79; TEMP 96.9
[2017-12-11] MEDS ORDERED: SODIUM CHLORIDE IVPB SCH ×3 (13:00)
[2017-12-11] MEDS ORDERED: LEUCOVORIN CALCIUM IVPB SCH (13:00)
[2017-12-11] MEDS ORDERED: Dexamethasone 10 MG/ML VIAL SLOW IVP SCH (13:00)
[2017-12-11] MEDS ORDERED: diphenhydrAMINE 50 MG/ML VIAL IVP SCH (13:00)
[2017-12-11] MEDS ORDERED: FLUOROURACIL IVPB SCH (13:00)
[2017-12-11] MEDS ORDERED: BEVACIZUMAB IVPB SCH (13:00)
[2017-12-11] MEDS ORDERED: PALONOSETRON HCL 0.05 MG/ML 5 ML VIAL IVP SCH (13:00)
[2017-12-11] MEDS ORDERED: ADMIXTURE FEE IVPB SCH ×3 (13:00)
== END 2017-12-11 15:44 | disposition home or self-care (01) ==
LOC: ONC/OP 12:41
PROVIDERS: ATTEND Internal Medicine Hematology & Oncology
DX: Z51.11 Encounter for antineoplastic chemotherapy (principal); C18.5 Malignant neoplasm of splenic flexure; C78.7 Secondary malignant neoplasm of liver and intrahepatic bile duct; C78.6 Secondary malignant neoplasm of retroperitoneum and peritoneum; I42.9 Cardiomyopathy, unspecified; J44.9 Chronic obstructive pulmonary disease, unspecified; M81.0 Age-related osteoporosis without current pathological fracture; Z88.1 Allergy status to other antibiotic agents; Z90.49 Acquired absence of other specified parts of digestive tract; Z98.890 Other specified postprocedural states; Z86.73 Personal history of transient ischemic attack (TIA), and cerebral infarction without residual deficits; Z87.891 Personal history of nicotine dependence
CPT/HCPCS: 96367; 96375; 96413; 96416; 96417; J0640; J1100; J1200; J2469; J7050; J9035; J9190

== ENCOUNTER 2017-12-25 10:59 | Day surgery (SDC) | payer SELFPAY ==
[2017-12-25] MEDS ORDERED: Fluorouracil 700 MG in Sodium Chloride 0.9% 50 ML IVPB SCH (11:15)
[2017-12-25] MEDS ORDERED: PALONOSETRON HCL 0.05 MG/ML 5 ML VIAL IVP SCH (11:15)
[2017-12-25] MEDS ORDERED: diphenhydrAMINE 50 MG/ML VIAL IVP SCH (11:15)
[2017-12-25] MEDS ORDERED: Dexamethasone 10 MG/ML VIAL SLOW IVP SCH (11:15)
[2017-12-25] MEDS ORDERED: Sodium Chloride 0.9% 30 ML ONE (11:17)
[2017-12-25] MEDS ORDERED: BEVACIZUMAB IVPB SCH (11:30)
[2017-12-25] MEDS ORDERED: SODIUM CHLORIDE 0.9% IVPB SCH (11:30)
[2017-12-25 12:45] VITALS: BP 134/78
== END 2017-12-25 13:47 | disposition home or self-care (01) ==
LOC: ONC/OP 10:59
PROVIDERS: ATTEND Internal Medicine Hematology & Oncology
DX: Z51.11 Encounter for antineoplastic chemotherapy (principal); C18.5 Malignant neoplasm of splenic flexure; J44.9 Chronic obstructive pulmonary disease, unspecified; I25.5 Ischemic cardiomyopathy; Z88.1 Allergy status to other antibiotic agents; Z87.891 Personal history of nicotine dependence; Z79.02 Long term (current) use of antithrombotics/antiplatelets; Z79.899 Other long term (current) drug therapy
CPT/HCPCS: 96367; 96375; 96413; 96416; 96417; A4216; J0640; J1100; J1200; J1642; J2469; J7050; J9035; J9190

== ENCOUNTER 2018-01-08 10:21 | Day surgery (SDC) | payer SELFPAY ==
[2018-01-08] MEDS ORDERED: Sodium Chloride 0.9% 50 ML ONE (10:25)
[2018-01-08] MEDS ORDERED: SODIUM CHLORIDE 0.9% IVPB SCH (10:45)
[2018-01-08] MEDS ORDERED: Dexamethasone 10 MG/ML VIAL SLOW IVP SCH (10:45)
[2018-01-08] MEDS ORDERED: BEVACIZUMAB IVPB SCH (10:45)
[2018-01-08] MEDS ORDERED: Fluorouracil 700 MG in Sodium Chloride 0.9% 50 ML IVPB SCH (10:45)
[2018-01-08] MEDS ORDERED: PALONOSETRON HCL 0.05 MG/ML 5 ML VIAL IVP SCH (10:45)
[2018-01-08] MEDS ORDERED: diphenhydrAMINE 50 MG/ML VIAL IVP SCH (10:45)
== END 2018-01-08 14:50 | disposition home or self-care (01) ==
LOC: ONC/OP 10:21
PROVIDERS: ATTEND Internal Medicine Hematology & Oncology
DX: Z51.11 Encounter for antineoplastic chemotherapy (principal); C18.5 Malignant neoplasm of splenic flexure; C78.7 Secondary malignant neoplasm of liver and intrahepatic bile duct; C78.6 Secondary malignant neoplasm of retroperitoneum and peritoneum; I25.5 Ischemic cardiomyopathy; J44.9 Chronic obstructive pulmonary disease, unspecified; M81.0 Age-related osteoporosis without current pathological fracture; Z88.1 Allergy status to other antibiotic agents; Z87.891 Personal history of nicotine dependence
CPT/HCPCS: 96367; 96375; 96413; 96416; 96417; A4216; J0640; J1100; J1200; J2469; J7050; J9035; J9190

== ENCOUNTER 2018-01-22 11:21 | Day surgery (SDC) | payer SELFPAY ==
[2018-01-22] MEDS ORDERED: Sodium Chloride 0.9% 30 ML ONE (11:29)
[2018-01-22] MEDS ORDERED: PALONOSETRON HCL 0.05 MG/ML 5 ML VIAL IVP SCH (11:45)
[2018-01-22] MEDS ORDERED: Dexamethasone 20 MG/5 ML VIAL IVPB SCH (11:45)
[2018-01-22] MEDS ORDERED: Fluorouracil 700 MG in Sodium Chloride 0.9% 50 ML IVPB SCH (11:45)
[2018-01-22] MEDS ORDERED: diphenhydrAMINE 50 MG/ML VIAL IVP SCH (11:45)
[2018-01-22] MEDS ORDERED: Bevacizumab 330 MG in Sodium Chloride 0.9% 100 ML IVPB SCH (12:00)
[2018-01-22] MEDS ORDERED: BEVACIZUMAB IVPB SCH (12:30)
[2018-01-22] MEDS ORDERED: SODIUM CHLORIDE 0.9% IVPB SCH (12:30)
[2018-01-22] MEDS ORDERED: Dexamethasone 10 MG/ML VIAL SLOW IVP SCH (13:30)
== END 2018-01-22 15:28 | disposition home or self-care (01) ==
LOC: ONC/OP 11:21
PROVIDERS: ATTEND Internal Medicine Hematology & Oncology
DX: Z51.11 Encounter for antineoplastic chemotherapy (principal); C18.5 Malignant neoplasm of splenic flexure; C78.7 Secondary malignant neoplasm of liver and intrahepatic bile duct; J45.909 Unspecified asthma, uncomplicated; I25.5 Ischemic cardiomyopathy; M81.0 Age-related osteoporosis without current pathological fracture; Z88.1 Allergy status to other antibiotic agents; Z86.73 Personal history of transient ischemic attack (TIA), and cerebral infarction without residual deficits; Z87.891 Personal history of nicotine dependence; Z79.899 Other long term (current) drug therapy
CPT/HCPCS: 96367; 96375; 96413; 96416; 96417; A4216; J0640; J1200; J2469; J7050; J9035; J9190

== ENCOUNTER 2018-02-05 10:47 | Day surgery (SDC) | payer SELFPAY ==
[2018-02-05] MEDS ORDERED: Sodium Chloride 0.9% 30 ML ONE (10:52)
[2018-02-05 11:11] VITALS: BP 125/62; TEMP 96.7
[2018-02-05] MEDS ORDERED: diphenhydrAMINE 50 MG/ML VIAL IVP SCH (11:15)
[2018-02-05] MEDS ORDERED: Dexamethasone 10 MG/ML VIAL SLOW IVP SCH (11:15)
[2018-02-05] MEDS ORDERED: SODIUM CHLORIDE 0.9% IVPB SCH (11:15)
[2018-02-05] MEDS ORDERED: BEVACIZUMAB IVPB SCH (11:15)
[2018-02-05] MEDS ORDERED: PALONOSETRON HCL 0.05 MG/ML 5 ML VIAL IVP SCH (11:15)
[2018-02-05] MEDS ORDERED: Fluorouracil 700 MG in Sodium Chloride 0.9% 50 ML IVPB SCH (11:15)
== END 2018-02-05 13:57 | disposition home or self-care (01) ==
LOC: ONC/OP 10:47
PROVIDERS: ATTEND Internal Medicine Hematology & Oncology
DX: Z51.11 Encounter for antineoplastic chemotherapy (principal); C18.5 Malignant neoplasm of splenic flexure; C78.7 Secondary malignant neoplasm of liver and intrahepatic bile duct; C78.6 Secondary malignant neoplasm of retroperitoneum and peritoneum; I42.9 Cardiomyopathy, unspecified; J45.909 Unspecified asthma, uncomplicated; M81.0 Age-related osteoporosis without current pathological fracture; Z86.73 Personal history of transient ischemic attack (TIA), and cerebral infarction without residual deficits; Z87.891 Personal history of nicotine dependence; Z88.1 Allergy status to other antibiotic agents; Z79.01 Long term (current) use of anticoagulants; Z79.899 Other long term (current) drug therapy
CPT/HCPCS: 96367; 96375; 96413; 96417; A4216; J0640; J1100; J1200; J1642; J2469; J7050; J9035; J9190

== ENCOUNTER 2018-02-26 09:03 | Day surgery (SDC) | payer SELFPAY ==
[2018-02-26] MEDS ORDERED: PALONOSETRON HCL 0.05 MG/ML 5 ML VIAL IVP SCH (09:30)
[2018-02-26] MEDS ORDERED: SODIUM CHLORIDE 0.9% IVPB SCH (09:30)
[2018-02-26] MEDS ORDERED: diphenhydrAMINE 50 MG/ML VIAL IVP SCH (09:30)
[2018-02-26] MEDS ORDERED: BEVACIZUMAB IVPB SCH (09:30)
[2018-02-26] MEDS ORDERED: Fluorouracil 700 MG in Sodium Chloride 0.9% 50 ML IVPB SCH (09:30)
[2018-02-26] MEDS ORDERED: Dexamethasone 10 MG/ML VIAL SLOW IVP SCH (09:30)
[2018-02-26 09:48] VITALS: BP 130/75; TEMP 98.3
== END 2018-02-26 14:47 | disposition home or self-care (01) ==
LOC: ONC/OP 09:03
PROVIDERS: ATTEND Internal Medicine Hematology & Oncology
DX: Z51.11 Encounter for antineoplastic chemotherapy (principal); C18.5 Malignant neoplasm of splenic flexure; C78.7 Secondary malignant neoplasm of liver and intrahepatic bile duct; C78.6 Secondary malignant neoplasm of retroperitoneum and peritoneum; J45.909 Unspecified asthma, uncomplicated; I25.5 Ischemic cardiomyopathy; M81.0 Age-related osteoporosis without current pathological fracture; Z86.73 Personal history of transient ischemic attack (TIA), and cerebral infarction without residual deficits; Z88.1 Allergy status to other antibiotic agents; Z79.899 Other long term (current) drug therapy; Z87.891 Personal history of nicotine dependence
CPT/HCPCS: 96367; 96375; 96413; 96416; 96417; J0640; J7050; J9035; J9190

== ENCOUNTER 2018-03-01 08:42 | Outpatient (CLI) | payer OTHER ==
--- NOTE | 2018-03-01 11:49 | CT ---
CT ABDOMEN AND PELVIS WITH IV CONTRAST: Date: 03/01/18 HISTORY: Metastatic colon cancer. COMPARISON: 06/01/17. FINDINGS: There has been interval placement of a triple lead left subclavian AICD device with leads partially v isualized. There is incomplete visualization of very tiny pleural based nodular densities at the right lung base , incompletely imaged on this exam. Nodular densities seen at the posterior left lung base are not se en on today's exam. No parenchymal pulmonary nodule is seen in either lung base. There has been interval decrease in size of the hypodense mass lateral segment left hepatic lobe with previously obtained measurements of 5.7 cm x 4.3 cm. Measurements on today's exam are 3.6 cm x 3.1 c m. No new hepatic lesions are seen. The spleen, pancreas, bilateral adrenal glands, kidneys, opacified small bowel, and urinary bladder d emonstrate a normal CT appearance. Uterus demonstrates a grossly normal CT appearance for patient's a ge. Postsurgical changes related to left hemicolectomy are noted. Right lower quadrant colostomy is noted in place with evidence of Ileana's pouch. Prominent increased density material is again present wi thin the rectum in the region of Ileana's pouch. This could potentially be related to residual galo um in this region given the artifact from these areas of increased density. No enlarged lymph nodes are seen by CT size criteria. No free fluid or fluid collection is seen in the abdomen or pelvis. Degenerative changes are again seen in the spine. No lytic or sclerotic osseous lesions are appreciat ed. IMPRESSION: 1. Resolution of pleural based nodular densities at the left lung base. The nodular densities at the right lung base, where visualized, do appear smaller in size, some of which also appear to have reso lved. 2. Continued interval decrease in size of solitary hypodense left hepatic lobe mass. 3. No evidence of lymphadenopathy. 4. Postsurgical changes related to left hemicolectomy with right lower quadrant colostomy. POS: RUBENS
== END 2018-03-01 08:43 | disposition home or self-care (01) ==
LOC: CT 08:42
PROVIDERS: ATTEND Internal Medicine Hematology & Oncology
DX: C18.9 Malignant neoplasm of colon, unspecified (principal); R16.0 Hepatomegaly, not elsewhere classified; J98.4 Other disorders of lung; Z90.49 Acquired absence of other specified parts of digestive tract; Z93.3 Colostomy status
CPT/HCPCS: 74177; 82565

== ENCOUNTER 2018-03-26 10:17 | Day surgery (SDC) | payer SELFPAY ==
[2018-03-26] MEDS ORDERED: Sodium Chloride 0.9% 30 ML ONE (10:26)
[2018-03-26 10:32] VITALS: BP 126/70; TEMP 97.6
[2018-03-26] MEDS ORDERED: diphenhydrAMINE 50 MG/ML VIAL IVP SCH (10:45)
[2018-03-26] MEDS ORDERED: SODIUM CHLORIDE 0.9% IVPB SCH (10:45)
[2018-03-26] MEDS ORDERED: Dexamethasone 10 MG/ML VIAL SLOW IVP SCH (10:45)
[2018-03-26] MEDS ORDERED: Fluorouracil 700 MG in Sodium Chloride 0.9% 50 ML IVPB SCH (10:45)
[2018-03-26] MEDS ORDERED: PALONOSETRON HCL 0.05 MG/ML 5 ML VIAL IVP SCH (10:45)
[2018-03-26] MEDS ORDERED: BEVACIZUMAB IVPB SCH (10:45)
[2018-03-26] MEDS ORDERED: Sodium Chloride 0.9% 10 ML ONE (10:46)
[2018-03-26] MEDS ORDERED: Dexamethasone 4 mg/ml Vial SLOW IVP SCH (11:00)
== END 2018-03-26 13:33 | disposition home or self-care (01) ==
LOC: ONC/OP 10:17
PROVIDERS: ATTEND Internal Medicine Hematology & Oncology
DX: Z51.11 Encounter for antineoplastic chemotherapy (principal); C18.5 Malignant neoplasm of splenic flexure; I25.5 Ischemic cardiomyopathy; Z88.1 Allergy status to other antibiotic agents; Z79.899 Other long term (current) drug therapy; Z87.891 Personal history of nicotine dependence
CPT/HCPCS: 96367; 96375; 96413; 96416; 96417; A4216; J0640; J1100; J1200; J1642; J2469; J7050; J9035; J9190

== ENCOUNTER 2018-04-09 10:29 | Day surgery (SDC) | payer SELFPAY ==
[2018-04-09] MEDS ORDERED: Dexamethasone 10 MG in Sodium Chloride 0.9% 50 ML IVPB SCH (11:00)
[2018-04-09] MEDS ORDERED: diphenhydrAMINE 50 MG/ML VIAL IVP SCH (11:00)
[2018-04-09] MEDS ORDERED: Palonosetron HCl 0.25 MG in Sodium Chloride 0.9% 50 ML IVPB SCH (11:00)
[2018-04-09] MEDS ORDERED: Sodium Chloride 0.9% 30 ML ONE ×2 (11:01→11:45)
[2018-04-09] MEDS ORDERED: BEVACIZUMAB IVPB SCH ×2 (11:15)
[2018-04-09] MEDS ORDERED: Fluorouracil 700 MG in Sodium Chloride 0.9% 50 ML IVPB SCH (11:15)
[2018-04-09] MEDS ORDERED: SODIUM CHLORIDE 0.9% IVPB SCH ×2 (11:15)
[2018-04-09 13:01] VITALS: BP 131/75; TEMP 97.5
== END 2018-04-09 15:04 | disposition home or self-care (01) ==
LOC: ONC/OP 10:29
PROVIDERS: ATTEND Internal Medicine Hematology & Oncology
DX: Z51.11 Encounter for antineoplastic chemotherapy (principal); C18.5 Malignant neoplasm of splenic flexure; M81.0 Age-related osteoporosis without current pathological fracture; Z88.1 Allergy status to other antibiotic agents; Z87.891 Personal history of nicotine dependence; Z79.899 Other long term (current) drug therapy
CPT/HCPCS: 96367; 96375; 96413; 96416; 96417; A4216; J0640; J1100; J1200; J2469; J7050; J9035; J9190

== ENCOUNTER 2018-04-23 09:37 | Day surgery (SDC) | payer SELFPAY ==
[2018-04-23] MEDS ORDERED: Sodium Chloride 0.9% 40 ML ONE (09:52)
[2018-04-23 10:19] LABS: #Basophils 0.1 thou/uL (0.0-0.2); #Eosinphils 0.2 thou/uL (0.0-0.7); #Lymphocytes 2.4 thou/uL (1.20-3.40); #Monocytes 0.6 thou/uL (0.11-0.59); #Neutrophils 3.8 thou/uL (1.40-6.50); %Basophils 0.9 % (0.0-1.0); %Eosinophils 3.4 % (0.0-10.0); %Lymphocytes 33.5 % (21.0-51.0); %Monocytes 8.9 % (0.0-10.0); %Neutrophils 53.4 % (42.0-75.0); Hemoglobin 11.5 g/dL (12.0-16.0); Mean Corpuscular HGB CONC 34.2 g/dL (32.0-36.0); Mean Corpuscular Volume 93.6 fL (78.0-98.0); Mean Platelet Volume 7.8 fL (7.4-10.4); Platelet Count 206 thou/uL (130-400); RBC Distribution Width 15.4 % (11.5-14.5); White Blood Cell (WBC) Count 7.1 thou/uL (4.8-10.8)
[2018-04-23] MEDS ORDERED: BEVACIZUMAB IVPB SCH (11:00)
[2018-04-23] MEDS ORDERED: PALONOSETRON HCL 0.05 MG/ML 5 ML VIAL IVP SCH (11:00)
[2018-04-23] MEDS ORDERED: Fluorouracil 700 MG in Sodium Chloride 0.9% 50 ML IVPB SCH (11:00)
[2018-04-23] MEDS ORDERED: SODIUM CHLORIDE 0.9% IVPB SCH (11:00)
[2018-04-23] MEDS ORDERED: Dexamethasone 10 MG/ML VIAL SLOW IVP SCH (11:00)
[2018-04-23] MEDS ORDERED: diphenhydrAMINE 50 MG/ML VIAL IVP SCH (11:00)
[2018-04-23] MEDS ORDERED: Bevacizumab 330 MG in Sodium Chloride 0.9% 100 ML IVPB SCH (11:00)
[2018-04-23] MEDS ORDERED: Palonosetron HCl 0.25 MG in Sodium Chloride 0.9% 50 ML IVPB SCH (11:15)
[2018-04-23 11:22] LABS: ALT (SGPT) 46 U/L (8-55); AST (SGOT) 81 U/L (5-34); Albumin 4.4 g/dL (3.4-4.8); Alkaline Phosphatase 130 U/L (40-150); Anion Gap 13 mmol/L (10-20); BUN (Urea Nitrogen) 15 mg/dL (9.8-20.1); Bilirubin, Total 0.5 mg/dL (0.2-1.2); Calc. Creatinine Clearance 50 mL/min (70-130); Calcium 10.4 mg/dL (7.8-10.44); Carbon Dioxide 25 mmol/L (23-31); Chloride 105 mmol/L (98-107); Estimated GFR-MDRD 46; Globulin 2.6 g/dL (2.4-3.5); Glucose 127 mg/dL (80-115); LDH 248 U/L (125-220); Potassium 3.7 mmol/L (3.5-5.1); Sodium 139 mmol/L (136-145); Uric Acid 7.4 mg/dL (2.6-6.0)
== END 2018-04-23 13:38 | disposition home or self-care (01) ==
LOC: ONC/OP 09:37
PROVIDERS: ATTEND Internal Medicine Hematology & Oncology
DX: Z51.11 Encounter for antineoplastic chemotherapy (principal); C18.5 Malignant neoplasm of splenic flexure; I25.5 Ischemic cardiomyopathy; J44.9 Chronic obstructive pulmonary disease, unspecified; Z87.891 Personal history of nicotine dependence; Z79.899 Other long term (current) drug therapy
CPT/HCPCS: 80053; 82378; 83615; 84550; 85025; 96367; 96375; 96413; 96416; 96417; A4216; J0640; J1200; J2469; J7050; J9035; J9190

== ENCOUNTER 2018-05-07 10:13 | Day surgery (SDC) | payer SELFPAY ==
[2018-05-07] MEDS ORDERED: Dexamethasone 10 MG/ML VIAL SLOW IVP SCH (10:30)
[2018-05-07] MEDS ORDERED: Fluorouracil 700 MG in Sodium Chloride 0.9% 50 ML IVPB SCH (10:30)
[2018-05-07] MEDS ORDERED: PALONOSETRON HCL 0.05 MG/ML 5 ML VIAL IVP SCH (10:30)
[2018-05-07] MEDS ORDERED: diphenhydrAMINE 50 MG/ML VIAL IVP SCH (10:45)
[2018-05-07] MEDS ORDERED: SODIUM CHLORIDE 0.9% IVPB SCH (10:45)
[2018-05-07] MEDS ORDERED: BEVACIZUMAB IVPB SCH (10:45)
[2018-05-07] MEDS ORDERED: Sodium Chloride 0.9% 40 ML ONE (11:02)
[2018-05-07 12:35] VITALS: BP 131/77; TEMP 97.8
== END 2018-05-07 14:57 | disposition home or self-care (01) ==
LOC: ONC/OP 10:13
PROVIDERS: ATTEND Internal Medicine Hematology & Oncology
DX: Z51.11 Encounter for antineoplastic chemotherapy (principal); C18.5 Malignant neoplasm of splenic flexure; I25.5 Ischemic cardiomyopathy; Z87.891 Personal history of nicotine dependence; Z79.899 Other long term (current) drug therapy; Z79.01 Long term (current) use of anticoagulants
CPT/HCPCS: 90471; 90686; 96367; 96372; 96375; 96413; 96416; 96417; G0008; J0640; J1100; J2469; J7050; J9035; J9190

== ENCOUNTER 2018-05-21 09:49 | Day surgery (SDC) | payer SELFPAY ==
[2018-05-21] MEDS ORDERED: Sodium Chloride 0.9% 30 ML ONE (10:02)
[2018-05-21] MEDS ORDERED: diphenhydrAMINE 25 MG CAP PO SCH (10:15)
[2018-05-21] MEDS ORDERED: PALONOSETRON HCL 0.05 MG/ML 5 ML VIAL IVP SCH (10:15)
[2018-05-21] MEDS ORDERED: Dexamethasone 10 MG/ML VIAL SLOW IVP SCH (10:15)
[2018-05-21] MEDS ORDERED: Fluorouracil 700 MG in Sodium Chloride 0.9% 50 ML IVPB SCH (10:15)
[2018-05-21] MEDS ORDERED: SODIUM CHLORIDE 0.9% IVPB SCH (10:30)
[2018-05-21] MEDS ORDERED: BEVACIZUMAB IVPB SCH (10:30)
[2018-05-21 11:06] VITALS: BP 112/64; TEMP 98
== END 2018-05-21 16:18 | disposition home or self-care (01) ==
LOC: ONC/OP 09:49
PROVIDERS: ATTEND Internal Medicine Hematology & Oncology
DX: Z51.11 Encounter for antineoplastic chemotherapy (principal); C18.5 Malignant neoplasm of splenic flexure; C78.7 Secondary malignant neoplasm of liver and intrahepatic bile duct; J44.9 Chronic obstructive pulmonary disease, unspecified; I25.5 Ischemic cardiomyopathy; M81.0 Age-related osteoporosis without current pathological fracture; Z86.73 Personal history of transient ischemic attack (TIA), and cerebral infarction without residual deficits; Z87.891 Personal history of nicotine dependence; Z79.51 Long term (current) use of inhaled steroids; Z79.899 Other long term (current) drug therapy; Z88.1 Allergy status to other antibiotic agents; Z90.49 Acquired absence of other specified parts of digestive tract; Z95.810 Presence of automatic (implantable) cardiac defibrillator
CPT/HCPCS: 96367; 96375; 96413; 96416; 96417; J0640; J1100; J2469; J7050; J9035; J9190

== ENCOUNTER 2018-06-04 09:59 | Day surgery (SDC) | payer SELFPAY ==
[2018-06-04] MEDS ORDERED: Sodium Chloride 0.9% 40 ML ONE (10:24)
[2018-06-04 11:09] VITALS: BP 137/78; TEMP 98
[2018-06-04] MEDS ORDERED: SODIUM CHLORIDE 0.9% IVPB SCH (11:15)
[2018-06-04] MEDS ORDERED: BEVACIZUMAB IVPB SCH (11:15)
[2018-06-04] MEDS ORDERED: Fluorouracil 700 MG in Sodium Chloride 0.9% 50 ML IVPB SCH (11:15)
[2018-06-04] MEDS ORDERED: PALONOSETRON HCL 0.05 MG/ML 5 ML VIAL IVP SCH (11:15)
[2018-06-04] MEDS ORDERED: Dexamethasone 10 MG/ML VIAL SLOW IVP SCH (11:15)
== END 2018-06-04 13:15 | disposition home or self-care (01) ==
LOC: ONC/OP 09:59
PROVIDERS: ATTEND Internal Medicine Hematology & Oncology
DX: Z51.11 Encounter for antineoplastic chemotherapy (principal); C18.5 Malignant neoplasm of splenic flexure; M81.0 Age-related osteoporosis without current pathological fracture; J42 Unspecified chronic bronchitis; Z88.8 Allergy status to other drugs, medicaments and biological substances; Z87.891 Personal history of nicotine dependence; Z79.01 Long term (current) use of anticoagulants; Z79.899 Other long term (current) drug therapy
CPT/HCPCS: 96367; 96375; 96413; 96416; 96417; J0640; J1100; J2469; J7050; J9035; J9190

== ENCOUNTER 2018-06-18 09:50 | Day surgery (SDC) | payer SELFPAY ==
[2018-06-18] MEDS ORDERED: Sodium Chloride 0.9% 40 ML ONE (10:12)
[2018-06-18] MEDS ORDERED: Bevacizumab 330 MG in Sodium Chloride 0.9% 100 ML IVPB SCH (10:15)
[2018-06-18] MEDS ORDERED: PALONOSETRON HCL 0.05 MG/ML 5 ML VIAL IVP SCH (10:15)
[2018-06-18] MEDS ORDERED: Dexamethasone 4 mg/ml Vial SLOW IVP SCH (10:15)
[2018-06-18] MEDS ORDERED: Fluorouracil 700 MG in Sodium Chloride 0.9% 50 ML IVPB SCH (10:15)
[2018-06-18] MEDS ORDERED: SODIUM CHLORIDE 0.9% IVPB SCH (10:30)
[2018-06-18] MEDS ORDERED: BEVACIZUMAB IVPB SCH (10:30)
[2018-06-18 10:49] VITALS: BP 124/65; TEMP 97.8
== END 2018-06-18 13:01 | disposition home or self-care (01) ==
LOC: ONC/OP 09:50
PROVIDERS: ATTEND Internal Medicine Hematology & Oncology
DX: Z51.11 Encounter for antineoplastic chemotherapy (principal); C18.5 Malignant neoplasm of splenic flexure; I25.5 Ischemic cardiomyopathy; Z88.8 Allergy status to other drugs, medicaments and biological substances; Z87.891 Personal history of nicotine dependence; Z79.899 Other long term (current) drug therapy
CPT/HCPCS: 96375; 96413; 96416; 96417; J0640; J1100; J2469; J7050; J9035; J9190

== ENCOUNTER 2018-07-24 10:11 | Day surgery (SDC) | payer SELFPAY ==
[2018-07-24] MEDS ORDERED: PALONOSETRON HCL 0.05 MG/ML 5 ML VIAL IVP SCH (10:30)
[2018-07-24] MEDS ORDERED: SODIUM CHLORIDE 0.9% IVPB SCH (10:30)
[2018-07-24] MEDS ORDERED: BEVACIZUMAB IVPB SCH (10:30)
[2018-07-24] MEDS ORDERED: Fluorouracil 700 MG in Sodium Chloride 0.9% 50 ML IVPB SCH (10:30)
[2018-07-24] MEDS ORDERED: Dexamethasone 10 MG/ML VIAL SLOW IVP SCH (10:30)
[2018-07-24] MEDS ORDERED: Sodium Chloride 0.9% 40 ML ONE (10:33)
[2018-07-24 11:11] VITALS: BP 131/78; TEMP 97.5
== END 2018-07-24 12:53 | disposition home or self-care (01) ==
LOC: ONC/OP 10:11
PROVIDERS: ATTEND Internal Medicine Hematology & Oncology
DX: Z51.11 Encounter for antineoplastic chemotherapy (principal); C18.5 Malignant neoplasm of splenic flexure; C78.7 Secondary malignant neoplasm of liver and intrahepatic bile duct; C78.6 Secondary malignant neoplasm of retroperitoneum and peritoneum; J45.909 Unspecified asthma, uncomplicated; I25.5 Ischemic cardiomyopathy; M81.0 Age-related osteoporosis without current pathological fracture; Z90.49 Acquired absence of other specified parts of digestive tract; Z86.73 Personal history of transient ischemic attack (TIA), and cerebral infarction without residual deficits; Z95.810 Presence of automatic (implantable) cardiac defibrillator; Z87.891 Personal history of nicotine dependence; Z79.899 Other long term (current) drug therapy
CPT/HCPCS: 96367; 96375; 96413; 96416; 96417; J0640; J1100; J2469; J7050; J9035; J9190

== ENCOUNTER 2018-08-06 09:38 | Day surgery (SDC) | payer SELFPAY ==
[2018-08-06] MEDS ORDERED: Dexamethasone 10 MG/ML VIAL SLOW IVP SCH (10:00)
[2018-08-06] MEDS ORDERED: PALONOSETRON HCL 0.05 MG/ML 5 ML VIAL IVP SCH (10:00)
[2018-08-06] MEDS ORDERED: Fluorouracil 700 MG in Sodium Chloride 0.9% 50 ML IVPB SCH (10:00)
[2018-08-06] MEDS ORDERED: Sodium Chloride 0.9% 30 ML ONE (10:11)
[2018-08-06] MEDS ORDERED: BEVACIZUMAB IVPB SCH (10:15)
[2018-08-06] MEDS ORDERED: SODIUM CHLORIDE 0.9% IVPB SCH (10:15)
[2018-08-06 12:16] VITALS: BP 132/74; TEMP 97.4
== END 2018-08-06 14:18 | disposition home or self-care (01) ==
LOC: ONC/OP 09:38
PROVIDERS: ATTEND Internal Medicine Hematology & Oncology
DX: Z51.11 Encounter for antineoplastic chemotherapy (principal); C18.5 Malignant neoplasm of splenic flexure; C78.7 Secondary malignant neoplasm of liver and intrahepatic bile duct; C78.6 Secondary malignant neoplasm of retroperitoneum and peritoneum; J45.909 Unspecified asthma, uncomplicated; I25.5 Ischemic cardiomyopathy; Z86.73 Personal history of transient ischemic attack (TIA), and cerebral infarction without residual deficits; M81.0 Age-related osteoporosis without current pathological fracture; Z79.899 Other long term (current) drug therapy; Z88.1 Allergy status to other antibiotic agents; Z90.49 Acquired absence of other specified parts of digestive tract
CPT/HCPCS: 96367; 96375; 96413; 96416; 96417; J0640; J1100; J2469; J7050; J9035; J9190

== ENCOUNTER 2018-08-27 10:24 | Day surgery (SDC) | payer SELFPAY ==
[2018-08-27] MEDS ORDERED: Sodium Chloride 0.9% 30 ML ONE (10:27)
[2018-08-27] MEDS ORDERED: BEVACIZUMAB IVPB SCH (11:00)
[2018-08-27] MEDS ORDERED: PALONOSETRON HCL 0.05 MG/ML 5 ML VIAL IVP SCH (11:00)
[2018-08-27] MEDS ORDERED: Dexamethasone 4 mg/ml Vial SLOW IVP SCH (11:00)
[2018-08-27] MEDS ORDERED: Fluorouracil 700 MG in Sodium Chloride 0.9% 50 ML IVPB SCH (11:00)
[2018-08-27] MEDS ORDERED: SODIUM CHLORIDE 0.9% IVPB SCH (11:00)
[2018-08-27 12:40] VITALS: BP 143/81; TEMP 97.6
== END 2018-08-27 13:53 | disposition home or self-care (01) ==
LOC: ONC/OP 10:24
PROVIDERS: ATTEND Internal Medicine Hematology & Oncology
DX: Z51.11 Encounter for antineoplastic chemotherapy (principal); C18.5 Malignant neoplasm of splenic flexure; Z88.8 Allergy status to other drugs, medicaments and biological substances; J44.9 Chronic obstructive pulmonary disease, unspecified; Z87.891 Personal history of nicotine dependence; Z79.899 Other long term (current) drug therapy
CPT/HCPCS: 96367; 96375; 96413; 96416; 96417; J0640; J1100; J2469; J7050; J9035; J9190

== ENCOUNTER 2018-09-10 00:02 | Day surgery (SDC) | payer SELFPAY ==
[2018-09-10] MEDS ORDERED: PALONOSETRON HCL 0.05 MG/ML 5 ML VIAL IVP SCH (03:15)
[2018-09-10] MEDS ORDERED: SODIUM CHLORIDE 0.9% IVPB SCH (03:15)
[2018-09-10] MEDS ORDERED: Dexamethasone 10 MG/ML VIAL SLOW IVP SCH (03:15)
[2018-09-10] MEDS ORDERED: Fluorouracil 700 MG in Sodium Chloride 0.9% 50 ML IVPB SCH (03:15)
[2018-09-10] MEDS ORDERED: BEVACIZUMAB IVPB SCH (03:15)
[2018-09-10] MEDS ORDERED: Sodium Chloride 0.9% 20 ML ONE (12:25)
== END 2018-09-10 14:16 | disposition home or self-care (01) ==
LOC: ONC/OP 00:02
PROVIDERS: ATTEND Internal Medicine Hematology & Oncology
DX: Z51.11 Encounter for antineoplastic chemotherapy (principal); C18.5 Malignant neoplasm of splenic flexure; Z88.1 Allergy status to other antibiotic agents; Z79.2 Long term (current) use of antibiotics; Z79.01 Long term (current) use of anticoagulants; Z79.899 Other long term (current) drug therapy
CPT/HCPCS: 96367; 96375; 96413; 96416; 96417; J0640; J1100; J1642; J2469; J7050; J9190

== ENCOUNTER 2018-09-17 08:13 | Outpatient (CLI) | payer OTHER ==
--- NOTE | 2018-09-17 09:50 | CT ---
CT OF THE ABDOMEN AND PELVIS WITH CONTRAST: Date: 09/17/18 COMPARISON: 03/01/18. HISTORY: Colon cancer with liver metastasis. TECHNIQUE: Multiple contiguous axial images were obtained in a CT of the abdomen and pelvis with contrast. PO co ntrast was administered. Coronal reformats were performed. FINDINGS: There is a subtle heterogeneous region in the left lobe of the liver where the previously seen mass w as visualized. This measures 1.7 cm in size and does not particularly look mass-like on today's exami nation. No other liver lesions are seen. The gallbladder, kidneys, adrenal glands, spleen, and pancreas are unremarkable. No free air, free fl uid, or stranding changes are seen in the abdomen or pelvis. Radiodense material is seen in the patient's rectal stump. The patient has an ostomy in the right low er quadrant of the abdomen. The small bowel is normal in caliber. No free air, free fluid, or strandi ng changes are seen in the abdomen or pelvis. No abdominal or pelvic lymphadenopathy are seen. Degenerative changes are seen in the spine. No suspicious osseous lesions are identified. The visuali zed inferior thorax is unremarkable. IMPRESSION: There is a heterogeneous area in the left lobe of the liver where the previously seen liver mass was present. This is nonspecific and may represent scar tissue from treated metastatic disease. Residual metastatic disease is also a possibility. A PET CT would be necessary to discriminate between the two . POS: RUBENS
[2018-09-17] MEDS ORDERED: ISOVUE-370 76%-LOCM 1 ML ONE (09:58)
== END 2018-09-17 08:14 | disposition home or self-care (01) ==
LOC: BICCT 08:13
PROVIDERS: ATTEND Internal Medicine Hematology & Oncology
DX: C18.9 Malignant neoplasm of colon, unspecified (principal); C78.7 Secondary malignant neoplasm of liver and intrahepatic bile duct; R16.0 Hepatomegaly, not elsewhere classified
CPT/HCPCS: 74177; Q9966

== ENCOUNTER 2018-09-24 11:58 | Day surgery (SDC) | payer SELFPAY ==
[~2018-09-24 11:58] MED LIST: BEVACIZUMAB IVPB SCH; Dexamethasone 10 MG/ML VIAL SLOW IVP SCH; Fluorouracil 700 MG in Sodium Chloride 0.9% 50 ML IVPB SCH; PALONOSETRON HCL 0.05 MG/ML 5 ML VIAL IVP SCH; SODIUM CHLORIDE 0.9% IVPB SCH; diphenhydrAMINE 50 MG/ML VIAL IVP PRN
[2018-09-24] MEDS ORDERED: Sodium Chloride 0.9% 40 ML ONE (12:51)
== END 2018-09-24 15:15 | disposition home or self-care (01) ==
LOC: ONC/OP 11:58
PROVIDERS: ATTEND Internal Medicine Hematology & Oncology
DX: Z51.11 Encounter for antineoplastic chemotherapy (principal); C18.5 Malignant neoplasm of splenic flexure; J44.9 Chronic obstructive pulmonary disease, unspecified; Z88.1 Allergy status to other antibiotic agents; Z90.49 Acquired absence of other specified parts of digestive tract; Z86.73 Personal history of transient ischemic attack (TIA), and cerebral infarction without residual deficits; Z87.891 Personal history of nicotine dependence
CPT/HCPCS: 96367; 96375; 96413; 96416; 96417; J0640; J1100; J2469; J7050; J9035; J9190

== ENCOUNTER 2018-10-08 11:59 | Day surgery (SDC) | payer SELFPAY ==
[2018-10-08] MEDS ORDERED: Sodium Chloride 0.9% 20 ML ONE (12:02)
== END 2018-10-08 14:19 | disposition home or self-care (01) ==
LOC: ONC/OP 11:59
PROVIDERS: ATTEND Internal Medicine Hematology & Oncology
DX: Z51.11 Encounter for antineoplastic chemotherapy (principal); C18.5 Malignant neoplasm of splenic flexure; J44.9 Chronic obstructive pulmonary disease, unspecified; I25.5 Ischemic cardiomyopathy; M81.0 Age-related osteoporosis without current pathological fracture; Z86.73 Personal history of transient ischemic attack (TIA), and cerebral infarction without residual deficits; Z85.828 Personal history of other malignant neoplasm of skin; Z90.49 Acquired absence of other specified parts of digestive tract; Z95.810 Presence of automatic (implantable) cardiac defibrillator; Z88.1 Allergy status to other antibiotic agents; Z79.2 Long term (current) use of antibiotics; Z79.01 Long term (current) use of anticoagulants; Z79.899 Other long term (current) drug therapy; Z98.890 Other specified postprocedural states
CPT/HCPCS: 96367; 96375; 96413; 96416; 96417; J0640; J1100; J2469; J7050; J9190

== ENCOUNTER 2018-10-22 10:40 | Day surgery (SDC) | payer SELFPAY ==
[~2018-10-22 10:40] MED LIST changes: +Dexamethasone 10 MG in Sodium Chloride 0.9% 50 ML IVPB SCH; +Palonosetron HCl 0.25 MG in Sodium Chloride 0.9% 50 ML IVPB SCH
[2018-10-22] MEDS ORDERED: Sodium Chloride 0.9% 20 ML ONE (10:43)
[2018-10-22 11:44] VITALS: BP 118/74; TEMP 97.5
== END 2018-10-22 14:21 | disposition home or self-care (01) ==
LOC: ONC/OP 10:40
PROVIDERS: ATTEND Internal Medicine Hematology & Oncology
DX: Z51.11 Encounter for antineoplastic chemotherapy (principal); C18.5 Malignant neoplasm of splenic flexure; Z88.1 Allergy status to other antibiotic agents
CPT/HCPCS: 96367; 96375; 96413; J0640; J1100; J2469; J7050; J9190

== ENCOUNTER 2018-11-05 10:11 | Day surgery (SDC) | payer SELFPAY ==
[~2018-11-05 10:11] MED LIST changes: -Palonosetron HCl 0.25 MG in Sodium Chloride 0.9% 50 ML IVPB SCH
[2018-11-05] MEDS ORDERED: Sodium Chloride 0.9% 20 ML ONE (10:13)
== END 2018-11-05 12:44 | disposition home or self-care (01) ==
LOC: ONC/OP 10:11
PROVIDERS: ATTEND Internal Medicine Hematology & Oncology
DX: Z51.11 Encounter for antineoplastic chemotherapy (principal); C18.5 Malignant neoplasm of splenic flexure; Z88.1 Allergy status to other antibiotic agents
CPT/HCPCS: 96367; 96375; 96413; 96416; 96417; J0640; J1100; J2469; J7050; J9190

== ENCOUNTER 2018-11-19 11:33 | Day surgery (SDC) | payer SELFPAY ==
[~2018-11-19 11:33] MED LIST changes: -Dexamethasone 10 MG in Sodium Chloride 0.9% 50 ML IVPB SCH; -diphenhydrAMINE 50 MG/ML VIAL IVP PRN
[2018-11-19] MEDS ORDERED: Sodium Chloride 0.9% 20 ML ONE (11:43)
[2018-11-19 12:02] VITALS: BP 128/59
== END 2018-11-19 15:07 | disposition home or self-care (01) ==
LOC: ONC/OP 11:33
PROVIDERS: ATTEND Internal Medicine Hematology & Oncology
DX: Z51.11 Encounter for antineoplastic chemotherapy (principal); C18.5 Malignant neoplasm of splenic flexure; Z88.1 Allergy status to other antibiotic agents
CPT/HCPCS: 96367; 96375; 96413; 96416; 96417; J0640; J1100; J2469; J7050; J9190

== ENCOUNTER 2018-11-29 07:39 | Outpatient (CLI) | payer OTHER ==
--- NOTE | 2018-11-29 09:52 | CT ---
ABDOMEN AND PELVIC CT SCAN WITH IV CONTRAST: Date: 11/29/18 HISTORY: C18.5 splenic flexure cancer, liver metastasis. COMPARISON: 09/17/18, 03/01/18. FINDINGS: In the region of the left lobe of the liver, where the previously noted 3.6 cm diameter fairly well c ircumscribed mass was seen on the prior 03/01/18 study, this area is much less well defined on today' s study. There does appear to be some new ductal dilatation in the lateral aspect of the left lobe of the liver. In addition, there appears to be either extension of this mass or a new mass developing s omewhat more caudally in the left lobe of the liver. This area measures approximately 2.3 x 2.9 cm in size. Small hiatal hernia with minimal thickening of the distal esophagus. Right upper colostomy. Pa ncreas, spleen, and adrenal glands are unremarkable. No renal calculus or acute obstruction. No si gnificant free intraperitoneal fluid within the abdomen or pelvis. No bowel obstruction. IMPRESSION: There is a definite change in the appearance of the left lobe of the liver when compared to 03/01/18 and 09/17/18 studies. In the region of the previously noted circumscribed mass, this area has become less well-defined. There is newly developed biliary ductal dilatation in the peripheral aspect of the medial left lobe of the liver. In addition, there appears to be either extension of this mass or dev eloping of a second mass more caudal in the left lobe of the liver which measures 2.3 x 2.9 cm. These findings are worrisome for worsening liver metastatic disease. No other significant change. KOSTAS Long
[2018-11-29] MEDS ORDERED: ISOVUE-370 76%-LOCM 1 ML ONE (11:49)
== END 2018-11-29 07:40 | disposition home or self-care (01) ==
LOC: BICCT 07:39
PROVIDERS: ATTEND Internal Medicine Hematology & Oncology
DX: C18.5 Malignant neoplasm of splenic flexure (principal)
CPT/HCPCS: 74177; 82565; Q9966

== ENCOUNTER 2018-12-03 12:07 | Day surgery (SDC) | payer SELFPAY ==
[2018-12-03] MEDS ORDERED: Sodium Chloride 0.9% 20 ML ONE (12:14)
[2018-12-03 12:38] VITALS: BP 119/67
== END 2018-12-03 15:52 | disposition home or self-care (01) ==
LOC: ONC/OP 12:07
PROVIDERS: ATTEND Internal Medicine Hematology & Oncology
DX: Z51.11 Encounter for antineoplastic chemotherapy (principal); C18.5 Malignant neoplasm of splenic flexure
CPT/HCPCS: 81275; 88361; 96367; 96375; 96413; 96416; 96417; J0640; J1100; J2469; J7050; J9190

== ENCOUNTER 2018-12-17 11:23 | Day surgery (SDC) | payer SELFPAY ==
[~2018-12-17 11:23] MED LIST changes: +IRINOTECAN IVPB SCH; +diphenhydrAMINE 50 MG/ML VIAL IVP SCH
[2018-12-17 11:44] VITALS: BP 121/67; TEMP 98
[2018-12-17] MEDS ORDERED: Atropine Sulfate 0.25 MG in Sodium Chloride 0.9% 50 ML IVPB SCH (12:00)
== END 2018-12-17 15:55 | disposition home or self-care (01) ==
LOC: ONC/OP 11:23
PROVIDERS: ATTEND Internal Medicine Hematology & Oncology
DX: Z51.11 Encounter for antineoplastic chemotherapy (principal); C18.5 Malignant neoplasm of splenic flexure; Z88.1 Allergy status to other antibiotic agents; Z79.01 Long term (current) use of anticoagulants; Z79.899 Other long term (current) drug therapy
CPT/HCPCS: 96375; 96413; 96417; J0461; J0640; J1100; J2469; J7050; J9190; J9206

== ENCOUNTER 2018-12-31 11:19 | Day surgery (SDC) | payer SELFPAY ==
[~2018-12-31 11:19] MED LIST changes: +Atropine Sulfate 0.25 MG in Sodium Chloride 0.9% 50 ML IVPB SCH; -diphenhydrAMINE 50 MG/ML VIAL IVP SCH
[2018-12-31] MEDS ORDERED: Sodium Chloride 0.9% 20 ML ONE (11:31)
[2018-12-31 13:33] VITALS: BP 135/66
== END 2018-12-31 15:56 | disposition home or self-care (01) ==
LOC: ONC/OP 11:19
PROVIDERS: ATTEND Internal Medicine Hematology & Oncology
DX: Z51.11 Encounter for antineoplastic chemotherapy (principal); C18.5 Malignant neoplasm of splenic flexure; Z88.1 Allergy status to other antibiotic agents; Z79.01 Long term (current) use of anticoagulants; Z79.899 Other long term (current) drug therapy
CPT/HCPCS: 96367; 96375; 96413; 96416; 96417; J0461; J0640; J1100; J1642; J2469; J7050; J9190; J9206

== ENCOUNTER 2019-01-14 11:17 | Day surgery (SDC) | payer SELFPAY ==
[~2019-01-14 11:17] MED LIST changes: -Atropine Sulfate 0.25 MG in Sodium Chloride 0.9% 50 ML IVPB SCH
[2019-01-14] MEDS ORDERED: Sodium Chloride 0.9% 20 ML ONE (11:48)
[2019-01-14] MEDS ORDERED: Atropine Sulfate 0.25 MG in Sodium Chloride 0.9% 50 ML IVPB SCH ×2 (12:45→13:00)
== END 2019-01-14 15:57 | disposition home or self-care (01) ==
LOC: ONC/OP 11:17
PROVIDERS: ATTEND Internal Medicine Hematology & Oncology
DX: Z51.11 Encounter for antineoplastic chemotherapy (principal); C18.5 Malignant neoplasm of splenic flexure; Z88.1 Allergy status to other antibiotic agents
CPT/HCPCS: 96367; 96375; 96413; 96416; 96417; J0461; J0640; J1100; J2469; J7050; J9190; J9206

== ENCOUNTER 2019-01-28 10:54 | Day surgery (SDC) | payer SELFPAY ==
[~2019-01-28 10:54] MED LIST changes: +Dexamethasone 10 MG in Sodium Chloride 0.9% 50 ML IVPB SCH
[2019-01-28] MEDS ORDERED: Atropine Sulfate 0.25 MG in Sodium Chloride 0.9% 50 ML IVPB SCH (11:45)
[2019-01-28] MEDS ORDERED: Sodium Chloride 0.9% 20 ML ONE (11:51)
[2019-01-28 12:16] VITALS: BP 108/61; TEMP 98
== END 2019-01-28 15:58 | disposition home or self-care (01) ==
LOC: ONC/OP 10:54
PROVIDERS: ATTEND Internal Medicine Hematology & Oncology
DX: Z51.11 Encounter for antineoplastic chemotherapy (principal); C18.5 Malignant neoplasm of splenic flexure; Z88.1 Allergy status to other antibiotic agents
CPT/HCPCS: 96367; 96375; 96413; 96416; 96417; J0461; J0640; J1100; J2469; J7050; J9190; J9206

== ENCOUNTER 2019-02-11 10:34 | Day surgery (SDC) | payer SELFPAY ==
[~2019-02-11 10:34] MED LIST changes: -Dexamethasone 10 MG/ML VIAL SLOW IVP SCH
[2019-02-11] MEDS ORDERED: Sodium Chloride 0.9% 20 ML ONE (10:35)
[2019-02-11 15:11] VITALS: BP 109/62; TEMP 97.5
== END 2019-02-11 16:20 | disposition home or self-care (01) ==
LOC: ONC/OP 10:34
PROVIDERS: ATTEND Internal Medicine Hematology & Oncology
DX: Z51.11 Encounter for antineoplastic chemotherapy (principal); C18.5 Malignant neoplasm of splenic flexure; Z88.1 Allergy status to other antibiotic agents
CPT/HCPCS: 96366; 96375; 96413; 96417; J0640; J1100; J2469; J7050; J9190; J9206

== ENCOUNTER 2019-02-25 10:47 | Day surgery (SDC) | payer SELFPAY ==
[~2019-02-25 10:47] MED LIST changes: +Atropine Sulfate 0.25 MG in Sodium Chloride 0.9% 50 ML IVPB SCH
[2019-02-25] MEDS ORDERED: Sodium Chloride 0.9% 20 ML ONE (11:14)
[2019-02-25] MEDS ORDERED: Atropine Sulfate 0.25 MG in Sodium Chloride 0.9% 50 ML IVPB SCH (11:30)
[2019-02-25 11:39] VITALS: BP 120/63; TEMP 97.5
== END 2019-02-25 16:33 | disposition home or self-care (01) ==
LOC: ONC/OP 10:47
PROVIDERS: ATTEND Internal Medicine Hematology & Oncology
DX: Z51.11 Encounter for antineoplastic chemotherapy (principal); C18.5 Malignant neoplasm of splenic flexure; Z88.1 Allergy status to other antibiotic agents
CPT/HCPCS: 96367; 96375; 96413; 96416; 96417; J0461; J0640; J1100; J2469; J7050; J9190; J9206

== ENCOUNTER 2019-03-11 11:46 | Day surgery (SDC) | payer SELFPAY ==
[~2019-03-11 11:46] MED LIST changes: -IRINOTECAN IVPB SCH; +Irinotecan 300 MG in Sodium Chloride 0.9% 500 ML IVPB SCH; -PALONOSETRON HCL 0.05 MG/ML 5 ML VIAL IVP SCH; +Palonosetron HCl 0.25 MG in Sodium Chloride 0.9% 50 ML IVPB SCH
[2019-03-11] MEDS ORDERED: Sodium Chloride 0.9% 20 ML ONE (12:34)
[2019-03-11 12:35] VITALS: BP 98/59; TEMP 97.6
== END 2019-03-11 16:31 | disposition home or self-care (01) ==
LOC: ONC/OP 11:46
PROVIDERS: ATTEND Internal Medicine Hematology & Oncology
DX: Z51.11 Encounter for antineoplastic chemotherapy (principal); C18.5 Malignant neoplasm of splenic flexure; Z88.1 Allergy status to other antibiotic agents
CPT/HCPCS: 96367; 96375; 96413; 96416; 96417; J0461; J0640; J1100; J2469; J3490; J7050; J9035; J9190; J9206

== ENCOUNTER 2019-03-25 11:46 | Day surgery (SDC) | payer SELFPAY ==
[2019-03-25] MEDS ORDERED: Sodium Chloride 0.9% 30 ML ONE (11:48)
[2019-03-25 12:31] VITALS: TEMP 98.7
[2019-03-25] MEDS ORDERED: Sodium Chloride 0.9% 500 ML IV SCH (12:45)
[2019-03-25 16:20] VITALS: BP 100/53
== END 2019-03-25 16:19 | disposition home or self-care (01) ==
LOC: ONC/OP 11:46
PROVIDERS: ATTEND Internal Medicine Hematology & Oncology
DX: Z51.11 Encounter for antineoplastic chemotherapy (principal); C18.5 Malignant neoplasm of splenic flexure; Z88.1 Allergy status to other antibiotic agents
CPT/HCPCS: 96367; 96375; 96413; 96416; 96417; J0461; J0640; J1100; J2469; J3490; J7050; J9035; J9190; J9206

== ENCOUNTER 2019-04-22 11:41 | Day surgery (SDC) | payer SELFPAY | END 2019-04-22 14:46 | disposition home or self-care (01) | LOC: ONC/OP 11:41 | PROVIDERS: ATTEND Internal Medicine Hematology & Oncology | DX: Z51.11 Encounter for antineoplastic chemotherapy (principal); C18.5 Malignant neoplasm of splenic flexure; Z88.1 Allergy status to other antibiotic agents | CPT/HCPCS: 96367; 96375; 96413; 96417; J0461; J0640; J1100; J2469; J3490; J7050; J9035; J9190; J9206 ==

== ENCOUNTER 2019-05-06 10:38 | Day surgery (SDC) | payer SELFPAY ==
[2019-05-06] MEDS ORDERED: Sodium Chloride 0.9% 20 ML ONE (10:47)
== END 2019-05-06 14:40 | disposition home or self-care (01) ==
LOC: ONC/OP 10:38
PROVIDERS: ATTEND Internal Medicine Hematology & Oncology
DX: Z51.11 Encounter for antineoplastic chemotherapy (principal); C18.5 Malignant neoplasm of splenic flexure; Z88.1 Allergy status to other antibiotic agents
CPT/HCPCS: 96367; 96375; 96413; 96416; 96417; J0461; J0640; J1100; J2469; J3490; J7050; J9035; J9190; J9206

== ENCOUNTER 2019-05-20 11:47 | Day surgery (SDC) | payer SELFPAY ==
[2019-05-20 13:43] VITALS: BP 114/56; TEMP 97.5
== END 2019-05-20 15:19 | disposition home or self-care (01) ==
LOC: ONC/OP 11:47
PROVIDERS: ATTEND Internal Medicine Hematology & Oncology
DX: Z51.11 Encounter for antineoplastic chemotherapy (principal); C18.5 Malignant neoplasm of splenic flexure; Z88.1 Allergy status to other antibiotic agents
CPT/HCPCS: 96367; 96375; 96413; 96417; J0461; J0640; J1100; J2469; J3490; J9035; J9190

== ENCOUNTER 2019-06-03 11:37 | Day surgery (SDC) | payer SELFPAY ==
[2019-06-03] MEDS ORDERED: Sodium Chloride 0.9% 30 ML ONE (11:54)
[2019-06-03 12:17] VITALS: BP 129/60
== END 2019-06-03 15:57 | disposition home or self-care (01) ==
LOC: ONC/OP 11:37
PROVIDERS: ATTEND Internal Medicine Hematology & Oncology
DX: Z51.11 Encounter for antineoplastic chemotherapy (principal); C18.5 Malignant neoplasm of splenic flexure; Z88.1 Allergy status to other antibiotic agents
CPT/HCPCS: 96367; 96375; 96413; 96416; 96417; J0461; J0640; J1100; J2469; J7050; J9190; J9206

== ENCOUNTER 2019-06-17 10:49 | Day surgery (SDC) | payer SELFPAY ==
[~2019-06-17 10:49] MED LIST changes: -Dexamethasone 10 MG in Sodium Chloride 0.9% 50 ML IVPB SCH
[2019-06-17 11:50] VITALS: BP 121/69; TEMP 97.5
== END 2019-06-17 15:06 | disposition home or self-care (01) ==
LOC: ONC/OP 10:49
PROVIDERS: ATTEND Internal Medicine Hematology & Oncology
DX: Z51.11 Encounter for antineoplastic chemotherapy (principal); C18.5 Malignant neoplasm of splenic flexure; Z88.1 Allergy status to other antibiotic agents
CPT/HCPCS: 96367; 96375; 96413; 96417; J0461; J0640; J1100; J2469; J3490; J7050; J9035; J9190; J9206

== ENCOUNTER 2019-07-01 11:46 | Day surgery (SDC) | payer SELFPAY ==
[2019-07-01] MEDS ORDERED: Sodium Chloride 0.9% 20 ML ONE (13:01)
[2019-07-01 14:27] VITALS: BP 122/55; TEMP 98.8
== END 2019-07-01 16:59 | disposition home or self-care (01) ==
LOC: ONC/OP 11:46
PROVIDERS: ATTEND Internal Medicine Hematology & Oncology
DX: Z51.11 Encounter for antineoplastic chemotherapy (principal); C18.5 Malignant neoplasm of splenic flexure; Z88.1 Allergy status to other antibiotic agents
CPT/HCPCS: 96367; 96375; 96413; 96416; 96417; J0461; J0640; J1100; J2469; J3490; J7050; J9035; J9190; J9206

== ENCOUNTER → 2019-07-22 | Day surgery (SDC) | payer SELFPAY ==
[~2019-07-22] MED LIST changes: +Sodium Chloride 0.9% 30 ML ONE
[2019-07-22 17:48] VITALS: BP 131/72; TEMP 97.4
== END ==
LOC: ONC/OP 11:01
PROVIDERS: ATTEND Internal Medicine Hematology & Oncology
DX: Z51.11 Encounter for antineoplastic chemotherapy (principal); C18.5 Malignant neoplasm of splenic flexure; Z88.1 Allergy status to other antibiotic agents
CPT/HCPCS: 96366; 96375; 96413; 96416; 96417; J0461; J0640; J1100; J2469; J3490; J7050; J9035; J9190; J9206

== ENCOUNTER 2019-08-05 10:59 | Day surgery (SDC) | payer MEDICARE, SELFPAY ==
[~2019-08-05 10:59] MED LIST changes: -Sodium Chloride 0.9% 30 ML ONE
[2019-08-05] MEDS ORDERED: Sodium Chloride 0.9% 20 ML ONE (11:09)
[2019-08-05 14:34] VITALS: BP 120/63; TEMP 98.1
== END 2019-08-05 14:45 | disposition home or self-care (01) ==
LOC: ONC/OP 10:59
PROVIDERS: ATTEND Internal Medicine Hematology & Oncology
DX: Z51.11 Encounter for antineoplastic chemotherapy (principal); C18.5 Malignant neoplasm of splenic flexure; Z88.1 Allergy status to other antibiotic agents
CPT/HCPCS: 36415; 80053; 82248; 82378; 83615; 84100; 84550; 96367; 96375; 96413; 96417; J0461; J0640; J1100; J2469; J7050; J9190; J9206

== ENCOUNTER 2019-08-19 10:49 | Day surgery (SDC) | payer MEDICARE, OTHER ==
[2019-08-19] MEDS ORDERED: Sodium Chloride 0.9% 20 ML ONE ×2 (10:50→10:54)
== END 2019-08-19 14:56 | disposition home or self-care (01) ==
LOC: ONC/OP 10:49
PROVIDERS: ATTEND Internal Medicine Hematology & Oncology
DX: Z51.11 Encounter for antineoplastic chemotherapy (principal); C18.5 Malignant neoplasm of splenic flexure; Z88.8 Allergy status to other drugs, medicaments and biological substances
CPT/HCPCS: 36415; 80053; 82248; 82378; 83615; 84100; 84550; 96367; 96376; 96413; 96417; J0461; J0640; J1100; J2469; J3490; J7050; J9035; J9190; J9206

== ENCOUNTER 2019-09-11 07:30 | Outpatient (CLI) | payer MEDICARE, OTHER ==
--- NOTE | 2019-09-11 08:27 | CT ---
CT OF ABDOMEN AND PELVIS: DATE: 09/11/2019. COMPARISON: 11/29/2018. HISTORY: Colon cancer with hepatic metastatic disease. TECHNIQUE: Axial CT imaging at 5 mm intervals from lung bases through pubic symphysis with IV and oral contrast. Coronal and sagittal reformatted imaging obtained. FINDINGS: Incompletely imaged transvenous pacing leads are present. Imaged lung bases appear unremarkable. No f ree intraperitoneal air. There is ill-defined lobulated confluent hypodensity noted within the left lobe of the liver, consist ent with the patient's history of hepatic metastatic disease. This includes a hypodense lesion along the inferior aspect of the left lobe of the liver on axial image 22 measuring approximately 2.5 x 2.1 cm, previously measuring approximately 2.3 x 2.9 cm. Superior to this there is ill-defined hypodensity which is difficult to measure given ill-defined nature, not significantly changed when co mpared to the 11/29/2018 examination. No new hepatic lesion is appreciated. The spleen, pancreas, gallbladder, adrenal glands, and kidneys appear grossly unremarkable. Dense calcified structures are again noted within the distal colon within what may represent a Hartma n's pouch. There is a colostomy in the left lower quadrant/left midabdomen, stable. There is no evidence for bowel obstruction. The vascular structures of the abdomen appear patent. There are a few mildly prominent nonenlarged subcentimeter lymph nodes within the left para-aortic region, not definitively changed when compared to prior imaging. Review of the osseous structures demonstrates bi lateral facet hypertrophy within the lower lumbar spine. No discrete lytic or blastic bone lesion. IMPRESSION: No definitive change in the appearance of the left lobe of the liver when compared to the prior exami nation. There appear to be 2 lesions within the left lobe of the liver including a stable to slightly smaller lesion within the inferior aspect of the left lobe and an ill-defined area of hypode nsity superior to this likely representing a stable second lesion. No new lesions are seen within the liver. Additional stable findings within the abdomen and pelvis as described above. Transcribed Date/Time: 09/11/2019 9:20 AM
[2019-09-11] MEDS ORDERED: Iopamidol-370 76% 500 ML 1 ML ONE (14:35)
== END 2019-09-11 07:31 | disposition home or self-care (01) ==
LOC: BICCT 07:30
PROVIDERS: ATTEND Internal Medicine Hematology & Oncology
DX: C18.5 Malignant neoplasm of splenic flexure (principal); C78.7 Secondary malignant neoplasm of liver and intrahepatic bile duct; K76.89 Other specified diseases of liver; R59.0 Localized enlarged lymph nodes; Z98.890 Other specified postprocedural states
CPT/HCPCS: 74177; Q9967

== ENCOUNTER 2019-09-22 12:00 | Day surgery (SDC) | payer MEDICARE, OTHER ==
[2019-09-22 16:16] VITALS: BP 137/65; TEMP 97.7
== END 2019-09-22 16:34 | disposition home or self-care (01) ==
LOC: ONC/OP 12:00
PROVIDERS: ATTEND Internal Medicine Hematology & Oncology
DX: Z51.11 Encounter for antineoplastic chemotherapy (principal); C18.5 Malignant neoplasm of splenic flexure; Z88.1 Allergy status to other antibiotic agents
CPT/HCPCS: 96367; 96375; 96413; 96417; J0461; J0640; J1100; J2469; J3490; J7050; J9035; J9190; J9206

== ENCOUNTER 2019-10-06 11:20 | Day surgery (SDC) | payer MEDICARE, OTHER ==
[2019-10-06 15:49] VITALS: BP 137/63; TEMP 97.9
== END 2019-10-06 15:52 | disposition home or self-care (01) ==
LOC: ONC/OP 11:20
PROVIDERS: ATTEND Internal Medicine Hematology & Oncology
DX: Z51.11 Encounter for antineoplastic chemotherapy (principal); C18.5 Malignant neoplasm of splenic flexure; Z88.1 Allergy status to other antibiotic agents
CPT/HCPCS: 36415; 80053; 82248; 82378; 83615; 84100; 84550; 96367; 96376; 96413; 96416; 96417; J0461; J0640; J1100; J2469; J3490; J7050; J9035; J9190; J9206

== ENCOUNTER 2019-10-20 11:30 | Day surgery (SDC) | payer MEDICARE, OTHER ==
[2019-10-20] MEDS ORDERED: Sodium Chloride 0.9% 20 ML ONE (11:42)
[2019-10-20 12:13] VITALS: BP 128/75; TEMP 98.5
== END 2019-10-20 16:15 | disposition home or self-care (01) ==
LOC: ONC/OP 11:30
PROVIDERS: ATTEND Internal Medicine Hematology & Oncology
DX: Z51.11 Encounter for antineoplastic chemotherapy (principal); C18.5 Malignant neoplasm of splenic flexure; Z88.1 Allergy status to other antibiotic agents
CPT/HCPCS: 36415; 80053; 82248; 82378; 83615; 84100; 84550; 96367; 96375; 96413; 96417; J0461; J0640; J1100; J2469; J3490; J7050; J9035; J9190; J9206

== ENCOUNTER → 2019-11-03 | Day surgery (SDC) | payer MEDICARE, OTHER ==
[2019-11-03 12:55] VITALS: BP 157/78; TEMP 97.7
== END ==
LOC: ONC/OP 12:17
PROVIDERS: ATTEND Internal Medicine Hematology & Oncology
DX: Z51.11 Encounter for antineoplastic chemotherapy (principal); C18.5 Malignant neoplasm of splenic flexure; Z88.1 Allergy status to other antibiotic agents
CPT/HCPCS: 36415; 80053; 82248; 82378; 83615; 84100; 84550; 96367; 96375; 96413; 96416; 96417; J0461; J0640; J1100; J2469; J3490; J7030; J9035; J9190; J9206

== ENCOUNTER 2019-11-17 10:57 | Day surgery (SDC) | payer MEDICARE, OTHER ==
[2019-11-17] MEDS ORDERED: Sodium Chloride 0.9% 20 ML ONE (11:16)
== END 2019-11-17 15:20 | disposition home or self-care (01) ==
LOC: ONC/OP 10:57
PROVIDERS: ATTEND Internal Medicine Hematology & Oncology
DX: Z51.11 Encounter for antineoplastic chemotherapy (principal); C18.5 Malignant neoplasm of splenic flexure; Z88.1 Allergy status to other antibiotic agents
CPT/HCPCS: 36415; 80053; 82248; 82378; 83615; 84100; 84550; 96367; 96375; 96413; 96416; 96417; J0461; J0640; J1100; J2469; J3490; J7030; J9035; J9190; J9206

== ENCOUNTER 2019-12-01 09:53 | Day surgery (SDC) | payer MEDICARE, OTHER ==
[2019-12-01] MEDS ORDERED: Sodium Chloride 0.9% 20 ML ONE (10:00)
[2019-12-01 13:06] VITALS: BP 129/65; TEMP 98.1
== END 2019-12-01 14:23 | disposition home or self-care (01) ==
LOC: ONC/OP 09:53
PROVIDERS: ATTEND Internal Medicine Hematology & Oncology
DX: Z51.11 Encounter for antineoplastic chemotherapy (principal); C18.5 Malignant neoplasm of splenic flexure; Z88.1 Allergy status to other antibiotic agents
CPT/HCPCS: 36415; 80053; 82248; 82378; 83615; 84100; 84550; 96367; 96375; 96413; 96417; J0461; J0640; J1100; J2469; J3490; J7030; J9035; J9190; J9206

== ENCOUNTER 2019-12-16 08:43 | Day surgery (SDC) | payer MEDICARE, OTHER ==
[2019-12-16] MEDS ORDERED: Atropine Sulfate 0.25 MG in Sodium Chloride 0.9% 50 ML IVPB SCH (10:00)
[2019-12-16] MEDS ORDERED: Sodium Chloride 0.9% 20 ML ONE ×2 (10:48→12:28)
[2019-12-16 11:25] VITALS: BP 137/75; TEMP 97.6
== END 2019-12-16 15:40 | disposition home or self-care (01) ==
LOC: ONC/OP 08:43
PROVIDERS: ATTEND Internal Medicine Hematology & Oncology
DX: Z51.11 Encounter for antineoplastic chemotherapy (principal); C18.5 Malignant neoplasm of splenic flexure; Z88.1 Allergy status to other antibiotic agents
CPT/HCPCS: 36415; 74177; 80053; 82248; 82378; 82565; 83615; 84100; 84550; 96367; 96375; 96413; 96416; 96417; J0461; J0640; J1100; J2469; J3490; J7030; J9035; J9190; J9206; Q9967

== ENCOUNTER 2019-12-29 11:01 | Day surgery (SDC) | payer MEDICARE, OTHER ==
[2019-12-29] MEDS ORDERED: Sodium Chloride 0.9% 20 ML ONE (11:19)
[2019-12-29 12:05] VITALS: BP 110/60; TEMP 98
== END 2019-12-29 16:19 | disposition home or self-care (01) ==
LOC: ONC/OP 11:01
PROVIDERS: ATTEND Internal Medicine Hematology & Oncology
DX: Z51.11 Encounter for antineoplastic chemotherapy (principal); C18.5 Malignant neoplasm of splenic flexure; Z88.1 Allergy status to other antibiotic agents
CPT/HCPCS: 36415; 80053; 82248; 82378; 83615; 84100; 84550; 96367; 96375; 96413; 96416; 96417; J0461; J0640; J1100; J2469; J3490; J7030; J9035; J9190; J9206

== ENCOUNTER 2020-01-16 08:07 | Outpatient (CLI) | payer MEDICARE, OTHER ==
--- NOTE | 2020-01-16 13:41 | PET ---
PET CT: 01/16/20 HISTORY: 64-year-old female with colon cancer and liver mets. Patient is undergoing chemotherapy. Exam request ed to evaluate for subsequent management options. TECHNIQUE: PET scan used for CT attenuation correction was performed from the base of the brain to the proximal thighs following intravenous administration of 11.3 millicuries of 15-fluorodeoxyglucose in the left hand. COMPARISON: None. CORRELATION: CT abdomen and pelvis of 12/16/19. FINDINGS: There is increased FDG localization in the left liver lobe mass with an SUV of 10.5. A hypermetabolic left periaortic lymph node is present is present with an SUV of 4.7. No kamaljit hypermetabolism is seen in the neck, chest, axillae, or pelvis. No hypermetabolic pulmonary nodules, edema, or skeletal lesions are seen. There is physiologic activity in the GI and tracts and the visualized portions of the brain. The CT scan used for attenuation correction demonstrates no evidence of pleural effusions or ascites. There is a right sided colostomy. IMPRESSION: Findings are consistent with metastatic disease involving the left lobe of the liver and a left peria ortic lymph node. POS: RUBENS
== END 2020-01-16 08:08 | disposition home or self-care (01) ==
LOC: PET 08:07
PROVIDERS: ATTEND Internal Medicine Hematology & Oncology
DX: C18.9 Malignant neoplasm of colon, unspecified (principal); C78.7 Secondary malignant neoplasm of liver and intrahepatic bile duct; C77.2 Secondary and unspecified malignant neoplasm of intra-abdominal lymph nodes
CPT/HCPCS: 78815; A9552

== ENCOUNTER 2020-03-11 09:52 | Inpatient (IN) | payer MEDICARE, OTHER ==
[2020-03-11] MEDS ORDERED: Nitroglycerin 2% Ointment 1 INCH/1 GM Packet ONE (10:23)
[2020-03-11] MEDS ORDERED: Aspirin Chewable 81 MG TAB ONE (10:23)
[2020-03-11 10:38] LABS: #Eosinphils 0.1 thou/uL (0.0-0.7); #Lymphocytes 1.4 thou/uL (1.20-3.40); #Monocytes 1.3 thou/uL (0.11-0.59); #Neutrophils 13.9 thou/uL (1.40-6.50); %Eosinophils 0.3 % (0.0-10.0); %Lymphocytes 8.2 % (21.0-51.0); %Monocytes 7.8 % (0.0-10.0); %Neutrophils 83.7 % (42.0-75.0); Hemoglobin 10.4 g/dL (12.0-16.0); Mean Corpuscular HGB CONC 33.2 g/dL (32.0-36.0); Mean Corpuscular Hemoglobin 29.4 pg (27.0-31.0); Mean Corpuscular Volume 88.6 fL (78.0-98.0); Mean Platelet Volume 9.6 fL (7.4-10.4); Platelet Count 277 thou/uL (130-400); RBC Distribution Width 17.2 % (11.5-14.5); Red Blood Cell (RBC) Count 3.52 mill/uL (4.20-5.40); White Blood Cell (WBC) Count 16.6 thou/uL (4.8-10.8)
[2020-03-11] MEDS ORDERED: Morphine 4 MG/ML VIAL ONE (10:56)
[2020-03-11 10:58] LABS: ALT (SGPT) 20 U/L (8-55); AST (SGOT) 39 U/L (5-34); Albumin 4.2 g/dL (3.4-4.8); Alkaline Phosphatase 244 U/L (40-110); Anion Gap 20 mmol/L (10-20); BUN (Urea Nitrogen) 13 mg/dL (9.8-20.1); Bilirubin, Total 0.6 mg/dL (0.2-1.2); CK (CPK) 33 U/L (29-168); Calc. Creatinine Clearance 0 mL/min (70-130); Calcium 10.1 mg/dL (7.8-10.44); Carbon Dioxide 21 mmol/L (23-31); Chloride 103 mmol/L (98-107); Estimated GFR-MDRD 49; Globulin 3.2 g/dL (2.4-3.5); Glucose 123 mg/dL (80-115); Lipase 33 U/L (8-78); Potassium 4.8 mmol/L (3.5-5.1); Protein, Total 7.4 g/dL (6.0-8.3); Sodium 139 mmol/L (136-145)
[2020-03-11] MEDS ORDERED: Fentanyl 100 MCG/2 ML VIAL ONE (10:58)
[2020-03-11] MEDS ORDERED: Ondansetron PF 4 MG/2 ML Vial ONE (11:05)
--- NOTE | 2020-03-11 11:14 | RAD ---
EXAM: Single view of the chest HISTORY: Chest pain and shortness of breath COMPARISON: 11/22/2017 FINDINGS: Single view of the chest shows an enlarged but stable cardiomediastinal silhouette. The Me diport and pacemaker are unchanged in position. There appears to be a small right pleural effusion with adjacent atelectasis. There is elevation the right hemidiaphragm which is stable. No acute osseo us abnormality. IMPRESSION: Right pleural effusion with adjacent atelectasis
[2020-03-11 11:20] LABS: CKMB 0.7 ng/mL (0-6.6)
[2020-03-11] MEDS ORDERED: Iopamidol-370 76% 500 ML 1 ML ONE (13:39)
[2020-03-11 13:41] LABS: Bilirubin Negative (Negative); Blood, Urine 1+ (Negative); Clarity Clear (Clear); Glucose, Urine (Dipstick) Normal (Negative); Ketone, Urine Negative (Negative); Leukocyte 250 Leu/uL (Negative); Nitrite Negative (Negative); Protein, Urine (Dipstick) 30 mg/dL (Neg-Trace); Specific Gravity, Urine 1.014 (1.002-1.036); Squamous Epithelial 0-3 HPF (0-3); Urobilinogen Normal mg/dL (Less than 2); WBC/HPF 21-50 HPF (0-3); pH, Urine 6.5 (5.0-9.0)
--- NOTE | 2020-03-11 13:47 | CT ---
CT PULMONARY ANGIOGRAM WITH IV CONTRAST AND 3D POSTPROCESSING: Date: 03/11/2020 HISTORY: Colon cancer. Last chemotherapy 2 months ago. Patient complains of chest pain and shortness of breath . FINDINGS: There is good contrast opacification of the pulmonary arterial vasculature with a few filling defects in a left lower lobe arterial branch. The thoracic aorta is well opacified without aneurysm or disse ction. No pericardial effusion is seen. There is a moderate size right and small left pleural effusio n with adjacent atelectatic changes. No pneumothoraces are seen. There are degenerative changes in the spine. Upper abdominal tomograms demonstrate changes of cholecystectomy and mass in the left lobe of the shorty er which were also noted on CT of abdomen of 12/16/2019. IMPRESSION: 1. Findings are consistent with pulmonary embolism in the left lower lobe. 2. Bilateral pleural effusions, right greater than left, with adjacent atelectatic changes. Discussed over the telephone with Rosemarie Sam NP, in the emergency room, at 1336 hours. CODE CR. POS: MZA
[2020-03-11 13:51] LABS: Bacteria/HPF 1+ HPF (None Seen)
[2020-03-11] MEDS ORDERED: Enoxaparin Sodium 60 MG/0.6 ML SYRINGE ONE (14:33)
[2020-03-11 14:46] LABS: Troponin I 0.033 ng/mL (< 0.028)
[2020-03-11] MEDS ORDERED: Zolpidem Tartrate 5 MG TAB PO PRN (14:57)
--- NOTE | 2020-03-11 15:49 | HP ---
PRIMARY CARE PROVIDER: Von Roberts MD CHILDBIRTH EDUCATOR: Madhu Leigh MD ONCOLOGIST: Baron Oneil MD HISTORY OF PRESENT ILLNESS: The patient is status post recent partial hepatectomy for liver metastases and incidental cholecystectomy on 02/25/2028. She woke up this morning 5 a.m. weak. She has pleuritic chest pain anterior. She has a cough. She has no pain in her legs, but both legs have been swelling recently for 2 to 3 days. She has no hemoptysis. She has a cough, but it is nonproductive. Workup revealed a high D-dimer, which revealed clots in the left lower lung. She is on Eliquis. She is currently being transitioned to Lovenox. PAST MEDICAL HISTORY: Includes colon cancer diagnosed in 2017. She at that time had colon cancer with liver METS. She had an excision of the colon cancer with colostomy. At that time, she also had a pulmonary embolus. She was found to have a cardiomyopathy and a pacemaker defibrillator was placed. She has a history of hypertension. FAMILY HISTORY: Mother is alive at approximately 90 with hypertension. Father with coronary artery disease. One sibling at 45 of pulmonary embolus. One sibling has had a stroke. CURRENT MEDICATIONS: 1. Eliquis 5 mg twice a day. 2. Coreg 3.125 twice a day. 3. Cyclobenzaprine 20 mg once a day at bedtime. 4. Lasix 40 mg once a day. 5. Gabapentin 200 mg three times a day. 6. [place] 10/325 two as needed for pain. 7. Lisinopril 10 mg a day. 8. Lorazepam 1 mg at bedtime. 9. Montelukast 10 mg a day. 10. Nortriptyline 50 mg at bedtime. 11. Protonix 40 mg twice a day. 12. Promethazine 25 mg oral p.r.n. ALLERGIES: RIFAMPIN CAUSED HALLUCINATIONS. SOCIAL HISTORY: . Full code status. is next of kin. Parenthetically, his name is Kirit Weaver and I have spoken to him. She smoked for 10 years back in the distant past and has not smoked in decades. She drinks no alcohol. REVIEW OF SYSTEMS: GENERAL: She has had a little headache with the present illness. No dizziness, fainting, fever, or chills. EYES: No double vision, blurred vision, or flashing lights. EARS, NOSE, AND THROAT: Occasional ear pain, mild. She states her teeth hurt today for some reason and she has a long history of sinus infections. She has occasional stringy nosebleeds, but not currently. No oral pain. CARDIAC: See present illness. No orthopnea or paroxysmal nocturnal dyspnea. RESPIRATIONS: See present illness. No history of asthma or COPD. GASTROINTESTINAL: She has diarrhea off and on, usually greenish. She had some nausea with present illness. No abdominal pain. No vomiting. No blood in her stools. GENITOURINARY: She has had a Peace since her surgery 2 months ago. She was supposed to be in [place] today to have her nikos out and the catheter out. No blood in her urine. No pain. MUSCULOSKELETAL: Some swelling in her legs. No pain. NEUROLOGIC: No strokes, seizures, or focal weakness. PSYCHIATRIC: No anxiety or depression, but she does suffer from insomnia. SKIN: No bruising, bleeding, or rash. HEMATOLOGIC/LYMPHATIC: No tender or swollen lymph nodes in the axilla, inguinal, or cervical area. PHYSICAL EXAMINATION: GENERAL: She is alert, pleasant, cooperative lady, in no distress at the present time. VITAL SIGNS: Most recent; blood pressure 103/64, pulse 92, respirations 17. She is on O2 at 2 L. Earlier in the day, she had a pulse ox of 87% on room air. HEAD, EYES EARS, NOSE, AND THROAT: Reveal pupils are equal, round, and reactive to light. Extraocular movements are intact. Sclerae are white. Tympanic membranes clear. Nose is clear. Oral mucous membranes are wet. No lesions. NECK: No jugular venous distention, adenopathy, or thyromegaly. CHEST: Clear anteriorly. Bilateral lower lobe rales. HEART: Regular rate and rhythm. First and seconds heart sounds are normal. No appreciated murmurs. ABDOMEN: Soft. Bowel sounds are normal. No hepatosplenomegaly. No masses. No rebound. She does have an ostomy in the right lower quadrant. EXTREMITIES: Reveal trace edema with no cyanosis or clubbing. PULSES: Carotid radial, femoral, and dorsalis pedis pulses intact. SKIN: Warm and dry without bruises or rash. HEMATOPOIETIC/LYMPH: No tender or swollen lymph nodes in the axilla, inguinal or cervical area. NEUROLOGIC: Cranial nerves 2 through 12 are intact. Deep tendon reflexes are symmetric. LABORATORY DATA: CBC; white count 16.6, hemoglobin 10.4, and platelet count 277,000. D-dimer 5.85. Urine, 21 to 50 white cells. Chemistries; sodium 139, potassium 4.8, chloride 103, BUN 13, CO2 of 21, creatinine 1.12, glucose 123, AST 39, alkaline phosphatase 244. Troponin 0.32. DIAGNOSTIC DATA: EKG, regular sinus rhythm. No ST-T abnormality. Reviewed by myself. Chest x-ray; cardiomegaly, bilateral lower lobe infiltrates. Personally reviewed CT scan of the chest; pulmonary embolism in the left lower lobe, bilateral pleural effusions, atelectatic change. INITIAL ASSESSMENT: 1. Chest pain, pleuritic. 2. Pulmonary emboli, recurrent on Eliquis. 3. Possible pneumonia. 4. Cardiomyopathy with possible decompensation. 5. Status post abdominal surgery several weeks ago with mild bilateral pleural effusions. 6. Chronic kidney disease, stage 3. PLAN: 1. Eliquis 1 mg/kg q.12 hours. Strict bed rest for 24 hours. 2. Blood cultures and urine cultures. Start cefepime and Levaquin. 3. Continue Lasix, Coreg, and lisinopril. Consult Dr. Leigh for interpretation of an ordered transthoracic echocardiogram. This lady is indeed uncomplicated. Workup will eventually reveal the major underlying process. Job ID: [id number]
[2020-03-11 18:06] LABS: Troponin I 0.034 ng/mL (< 0.028)
[2020-03-11] MEDS: Cefepime 2 GM in Sodium Chloride 0.9% 100 ML IVPB SCH (18:12)
[2020-03-11] MEDS: Acetaminophen 325 MG TAB PO PRN (18:12)
--- NOTE | 2020-03-11 18:46 | ULT ---
Venous duplex sonogram bilateral lower extremity HISTORY: Pulmonary embolus. FINDINGS: Each common femoral vein and greater saphenous junction were evaluated along with each femo ral, deep femoral, popliteal, and posterior tibial vein. There is good color and spectral Doppler flow, compression, and augmentation. IMPRESSION : Normal exam.
[2020-03-11] MEDS: HYDROcodone/Acetaminophen 5/325 mg Tablet PO PRN (20:30)
[2020-03-11 20:35] LABS: Troponin I 0.027 ng/mL (< 0.028)
[2020-03-11] MEDS: Carvedilol 3.125 MG TAB PO SCH (20:41)
[2020-03-11] MEDS ORDERED: Enoxaparin Sodium 80 MG/0.8 ML SYRINGE SC SCH ×2 (21:00)
[2020-03-11] MEDS ORDERED: Apixaban 5 MG TAB PO SCH (21:00)
[2020-03-12 04:33] LABS: #Eosinphils 0.2 thou/uL (0.0-0.7); #Lymphocytes 1.2 thou/uL (1.20-3.40); #Neutrophils 6.9 thou/uL (1.40-6.50); %Basophils 0.4 % (0.0-1.0); %Eosinophils 2.2 % (0.0-10.0); %Lymphocytes 12.8 % (21.0-51.0); %Monocytes 10.3 % (0.0-10.0); %Neutrophils 74.4 % (42.0-75.0); Hemoglobin 7.4 g/dL (12.0-16.0); Mean Corpuscular Hemoglobin 28.4 pg (27.0-31.0); Mean Corpuscular Volume 88.7 fL (78.0-98.0); Mean Platelet Volume 9.8 fL (7.4-10.4); Platelet Count 229 thou/uL (130-400); White Blood Cell (WBC) Count 9.3 thou/uL (4.8-10.8)
[2020-03-12 04:54] LABS: Anion Gap 15 mmol/L (10-20); BUN (Urea Nitrogen) 18 mg/dL (9.8-20.1); Calc. Creatinine Clearance 54 mL/min (70-130); Calcium 8.5 mg/dL (7.8-10.44); Carbon Dioxide 20 mmol/L (23-31); Chloride 105 mmol/L (98-107); Estimated GFR-MDRD 46; Glucose 97 mg/dL (80-115); Potassium 4.1 mmol/L (3.5-5.1); Sodium 136 mmol/L (136-145)
[2020-03-12] MEDS: Rivaroxaban 10 MG TAB PO SCH (05:19)
[2020-03-12] MEDS: Cefepime 2 GM in Sodium Chloride 0.9% 100 ML IVPB SCH ×2 (05:19→17:21)
[2020-03-12] MEDS: HYDROcodone/Acetaminophen 5/325 mg Tablet PO PRN ×3 (05:28→18:08)
--- NOTE | 2020-03-12 07:59 | CON ---
DATE OF CONSULTATION: 03/11/2020 REASON FOR CONSULTATION: Acute pulmonary embolus. HISTORY OF PRESENT ILLNESS: Mrs. Weaver is a very pleasant 64-year-old white female, very well known to myself, who comes to the hospital for shortness of breath. She was seen in the ER and a CT of the chest was done with contrast and was found to have left lower lobe pulmonary embolisms. She has been chronically on Eliquis for history of DVT and high risk for recurrence. She recently had surgery, had excision of metastatic tumors from her colon cancer to her liver. This was done at [facility] and she had her Eliquis stopped one week before her procedure and restarted about 4 days afterwards. She thinks she had a total of about 12 days off Eliquis during this and this actually happened about 2-1/2 weeks ago on February 24. She currently denies any chest pain, tightness, pressure. Shortness of breath is better. PAST MEDICAL HISTORY: 1. Colon cancer since 2017. 2. Nonischemic dilated cardiomyopathy. 3. LV thrombus on initial evaluation, requiring chronic anticoagulation with Eliquis. 4. 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 5. Osteoporosis. 6. Basal cell carcinoma. 7. Bronchial asthma. PAST SURGICAL HISTORY: 1. Colectomy with colostomy, colostomy still in place. 2. Varicose vein procedure. 3. Cyst removal from her fingers. 4. Heart catheterization was unremarkable. 5. AICD placement. OUTPATIENT MEDICATIONS: 1. Lasix 40 mg a day. 2. Carvedilol 3.125 b.i.d. 3. Eliquis 5 mg b.i.d. 4. Ventolin inhaler p.r.n. 5. Protonix 40 mg b.i.d. 6. Zofran p.r.n. 7. Nortriptyline 50 mg at bedtime. 8. Montelukast 10 mg at bedtime. 9. Lisinopril 5 mg a day. 10. Hydrocodone p.r.n. 11. Keflex. 12. Symbicort b.i.d. ALLERGIES: RIFAMPIN GIVES HER HALLUCINATIONS. SOCIAL HISTORY: Quit smoking in 1979, but smoked only for 10 years. No alcohol or drug use. FAMILY HISTORY: Noncontributory. REVIEW OF SYSTEMS: A 12-point review of systems was done and was found to be negative other than stated in the History of Present Illness. PHYSICAL EXAMINATION: VITAL SIGNS: Temperature 97.8, pulse 80, respiratory rate 24, saturating 96% on 2 L, and blood pressure 96/54. GENERAL: Awake, alert, oriented x3. No distress. HEENT: Normocephalic, atraumatic. NECK: Supple LUNGS: Clear. CARDIOVASCULAR: S1 and S2. No S3 or S4. No murmurs. ABDOMEN: Soft. Positive bowel sounds. Colostomy in place. EXTREMITIES: 1+ edema. SKIN: Warm and dry. LABORATORY DATA: Laboratory work was reviewed. White count of 16, hemoglobin 10, hematocrit of 31, and platelet count of 277. Coags, D-dimer was high. Chemistries were reviewed, creatinine 1.12. Troponin was 0.03, 0.03, and 0.03 and a BNP of 389. UA with 1+ blood, 7 to 10 red cells, 21 to 50 white cells, 1+ bacteria, and 4 to 6 hyaline casts. IMAGING DATA: CT of the chest with contrast showed evidence of pulmonary embolism in the left lower lobe. There are bilateral pleural effusions, right greater than left, and atelectatic changes. ASSESSMENT AND PLAN: 1. Acute pulmonary embolism. 2. Chronic anticoagulation, on Eliquis. Question about this being a failed anticoagulation with Eliquis. 3. Nonischemic dilated cardiomyopathy. 4. History of LV clot with no recurrence since she has been consistently on Eliquis. 5. Stage IV colon cancer. 6. Recent surgery with excision of METS to the liver. 7. Recent 10-to 12-day course of holding Eliquis for pre and postsurgical state. PLAN: 1. It is my belief that she actually has not failed Eliquis. She has been on this medication faithfully for the last 3 years and she has not had any thrombus formation. More than likely what happened is she formed a blood clot within the 10 to 12 days where she was off the Eliquis for her recent surgery and she recently just dislodged some of these clots and they went to her lungs. Because this is something that I cannot prove and it is unclear, at this time, I think it is reasonable to switch from Eliquis to Xarelto. 2. If she is ever to need surgeries in the future, which is something that is highly possible, we will recommend Lovenox bridge at that point. 3. We will get an echocardiogram to assess right-sided structures as well as LV function. Thank you for letting us participate in the care of your patient. We will continue to follow. Job ID: [id number]
[2020-03-12] MEDS ORDERED: Lorazepam 1 MG TAB PO PRN (09:23)
[2020-03-12] MEDS: Furosemide 40 MG TAB PO SCH (09:35)
[2020-03-12] MEDS: Carvedilol 3.125 MG TAB PO SCH ×2 (09:36→20:13)
[2020-03-12] MEDS: Lisinopril 10 MG TAB PO SCH (09:36)
[2020-03-12] MEDS ORDERED: Cyclobenzaprine 10 MG TAB PO PRN (09:42)
--- NOTE | 2020-03-12 09:42 | PDOC.HOSPP ---
- Subjective Encounter Date: 03/12/20 Encounter Time: 09:30 Subjective: f/u for acute LLL PE off prior Eliquis due to liver cancer resection. Currently on Xarelto with ? Eliquis failure. Feels weak but less SOB. - Objective Vital Signs & Weight: Vital Signs (12 hours) Temp Pulse Resp BP BP Pulse Ox 03/12/20 09:36 118/63 03/12/20 08:41 98.2 F 75 14 118/63 96 03/12/20 04:00 98 F 81 20 138/79 95 03/12/20 00:00 80 128/66 Weight Weight 157 lb 1.6 oz I&O: 03/11/20 03/12/20 03/13/20 06:59 06:59 06:59 Intake Total 480 120 Output Total 1100 Balance -620 120 Result Diagrams: 03/12/20 03:57 03/12/20 03:57 Additional Labs: Microbiology 03/11/20 17:27 Venous blood - Left Arm Blood Culture - Preliminary Specimen has been received and culture in progress. No Growth to date. 03/11/20 15:49 Venous blood - Right Arm Blood Culture - Preliminary Specimen has been received and culture in progress. No Growth to date. 03/11/20 10:45 Urine hopper catheter Urine Culture - Preliminary Presumptive Pseudo aeruginosa Laboratory Tests 03/11/20 03/11/20 03/11/20 10:26 10:26 10:26 WBC 16.6 H Hgb 10.4 L D-Dimer Creatinine 1.12 H Troponin I 0.032 H B-Natriuretic Peptide 03/11/20 03/11/20 03/11/20 12:22 14:07 15:49 WBC Hgb D-Dimer 5.85 H Creatinine Troponin I 0.033 H B-Natriuretic Peptide 389.7 H 03/11/20 03/11/20 17:27 20:02 WBC Hgb D-Dimer Creatinine Troponin I 0.034 H 0.027 B-Natriuretic Peptide Radiology Reviewed by me: Yes (CTA chest - LLL PE, R>L pleural effusion) EKG Reviewed by me: Yes (Tele - A-sensed, V-pacing) Hospitalist ROS - Medication Medications: Active Medications Generic Name Dose Route Start Last Admin Trade Name Freq PRN Reason Stop Dose Admin Acetaminophen 650 mg 03/11/20 14:57 03/11/20 18:12 Tylenol PO 650 mg Q4H PRN Administration Headache/Fever/Mild Pain (1-3) Hydrocodone Bitart/Acetaminophen 1 tab 03/11/20 14:57 03/12/20 05:28 [place] 5/325 PO 1 tab Q4H PRN Administration Moderate Pain (4-6) Carvedilol 3.125 mg 03/11/20 21:00 03/12/20 09:36 Coreg PO 3.125 mg BID GONZALO Administration Furosemide 40 mg 03/12/20 09:00 03/12/20 09:35 Lasix PO 40 mg DAILY GONZALO Administration Cefepime HCl 2 gm/ Sodium 100 mls @ 200 mls/hr 03/11/20 17:00 03/12/20 05:19 Chloride IVPB 100 mls 0500,1700 GONZALO Administration Levofloxacin 750 mg/ Device 150 mls @ 100 mls/hr 03/11/20 17:00 03/11/20 19: 20 IVPB 150 mls Q24HR GONZALO Administration Lisinopril 10 mg 03/12/20 09:00 03/12/20 09:36 Zestril PO 10 mg DAILY GONZALO Administration Rivaroxaban 20 mg 03/12/20 06:00 03/12/20 05:19 Xarelto PO 20 mg 0600 GONZALO Administration - Exam General Appearance: NAD, awake alert Eye: PERRL, anicteric sclera ENT: normocephalic atraumatic, no oropharyngeal lesions Neck: supple, symmetric, no JVD, no thyromegaly Heart: RRR, no gallops, no rubs, normal peripheral pulses Heart - other findings: S1, S2 Respiratory: no ronchi, normal chest expansion, no tachypnea Respiratory - other findings: diminished in bases Gastrointestinal: soft, non-distended, normal bowel sounds, no palpable masses Gastrointestinal - other findings: surgical nikos in place, + ostomy in RLQ Extremities: no cyanosis, no clubbing, no edema Skin: normal turgor, no lesions Neurological: cranial nerve grossly intact, no new deficit Musculoskeletal: normal tone, normal strength Psychiatric: normal affect, A&O x 3 Hosp A/P (1) Acute pulmonary embolus Code(s): I26.99 - OTHER PULMONARY EMBOLISM WITHOUT ACUTE COR PULMONALE Status : Acute Plan: Continue Xarelto, ? Eliquis failure vs post-op D/C, wean O2 as tolerated (2) Acute anemia Code(s): D64.9 - ANEMIA, UNSPECIFIED Status: Acute Plan: ? acute event, repeat H/H, serial monitoring (3) CKD (chronic kidney disease), stage III Code(s): N18.3 - CHRONIC KIDNEY DISEASE, STAGE 3 (MODERATE) Status: Chronic Plan: Avoid nephrotoxic meds and limit contrast exposure (4) Colon cancer metastasized to liver Code(s): C18.9 - MALIGNANT NEOPLASM OF COLON, UNSPECIFIED; C78.7 - SECONDARY MALIG NEOPLASM OF LIVER AND INTRAHEPATIC BILE DUCT Status: Chronic Plan: s/p partial hepatectomy, will follow up at [facility] for oncology services (5) Pseudomonas urinary tract infection Code(s): N39.0 - URINARY TRACT INFECTION, SITE NOT SPECIFIED; B96.5 - PSEUDOMONAS (MALLEI) CAUSING DISEASES CLASSD ELSWHR Status: Acute Plan: Suspected, continue Cefepime/Levaquin pending final Ucx results - Plan continue antibiotics, social work job titles, out of bed/ambulate, DVT proph w/SCDs Stable currently Continue Xarelto Check H/H now Continue Cefepime/Levaquin Await final Ucx results 2D echo pending AM lab: BMP, H/H
[2020-03-12] MEDS ORDERED: Albuterol Sulfate 2.5 mg/3 ml Neb NEB PRN (10:00)
[2020-03-12 10:16] LABS: Hemoglobin 7.8 g/dL (12.0-16.0); Platelet Count 230 thou/uL (130-400)
--- NOTE | 2020-03-12 13:29 | PDOC.CPN ---
- Subjective Date: 03/12/20 Time: 13:27 Interval history: No new issues. - Review of Systems General: reports: fatigue. denies: fever/chills, weight/appetite/sleep changes , night sweats Respiratory: reports: shortness of breath. denies: cough, congestion, exercise intolerance Cardiovascular: denies: chest pain, palpitation, edema, paroxysmal nocturnal dyspnea, orthopnea Gastrointestinal: denies: nausea, vomiting, diarrhea, constipation, abd pain, GI bleeding Musculoskeletal: denies: pain, tenderness, stiffness, swelling, arthritis/ arthralgias Neurological: denies: numbness, syncope, seizure, weakness - Objective Allergies/Adverse Reactions: Allergies Allergy/AdvReac Type Severity Reaction Status Date / Time rifampin AdvReac hallucinati Verified 10/14/19 00:39 ons Visit Medications: Current Medications Acetaminophen (Tylenol) 650 mg PO Q4H PRN PRN Reason: Headache/Fever/Mild Pain (1-3) Last Admin: 03/11/20 18:12 Dose: 650 mg Hydrocodone Bitart/Acetaminophen ([place] 5/325) 1 tab PO Q4H PRN PRN Reason: Moderate Pain (4-6) Last Admin: 03/12/20 11:16 Dose: 1 tab Hydrocodone Bitart/Acetaminophen ([place] 10/325) 1 tab PO Q8HR [facility] Albuterol Sulfate (Ventolin) 2.5 mg NEB Q4H PRN PRN Reason: Dyspnea/Wheezing/SOB Carvedilol (Coreg) 3.125 mg PO BID [facility] Last Admin: 03/12/20 09:36 Dose: 3.125 mg Cyclobenzaprine HCl (Flexeril) 10 mg PO TIDPRN PRN PRN Reason: Muscle Spasm Furosemide (Lasix) 40 mg PO DAILY [facility] Last Admin: 03/12/20 09:35 Dose: 40 mg Cefepime HCl 2 gm/ Sodium (Chloride) 100 mls @ 200 mls/hr IVPB 0500,1700 [facility] Last Admin: 03/12/20 05:19 Dose: 100 mls Levofloxacin 750 mg/ Device 150 mls @ 100 mls/hr IVPB Q24HR [facility] Last Admin: 03/11/20 19:20 Dose: 150 mls Lisinopril (Zestril) 10 mg PO DAILY [facility] Last Admin: 03/12/20 09:36 Dose: 10 mg Lorazepam (Ativan) 1 mg PO BIDPRN PRN PRN Reason: Anxiety Mometasone Furoate/Formoterol Fumar (Dulera 200 Mcg/5 Mcg Inhaler) 1 puff INH BID-RT GONZALO Montelukast Sodium (Singulair) 10 mg PO HS G[facility] Nortriptyline HCl (Pamelor) 50 mg PO HS PRN PRN Reason: Insomnia Ondansetron HCl (Zofran Odt) 4 mg PO Q6H PRN PRN Reason: Nausea/Vomiting Ondansetron HCl (Zofran Odt) 8 mg PO TID [facility] Pantoprazole Sodium (Protonix) 40 mg PO BID [facility] Potassium Chloride (K-Dur) 20 meq PO DAILY [facility] Promethazine HCl (Phenergan) 25 mg PO Q6HR PRN PRN Reason: Nausea Rivaroxaban (Xarelto) 20 mg PO 0600 [facility]O Last Admin: 03/12/20 05:19 Dose: 20 mg Zolpidem Tartrate (Ambien) 10 mg PO HS PRN PRN Reason: Insomnia Vital Signs & Weight: Vital Signs Temp Pulse Resp BP BP Pulse Ox 03/12/20 11:38 97.5 F L 80 16 118/60 98 03/12/20 09:36 118/63 03/12/20 08:41 98.2 F 75 14 118/63 96 03/12/20 04:00 98 F 81 20 138/79 95 Weight 157 lb 1.6 oz - Physical Exam General: alert & oriented x3 HEENT: mucus membranes moist Neck: supple neck Cardiac: regular rate and rhythm Lungs: clear to auscultation Neuro: grossly intact Abdomen: active bowel sounds Extremities: no edema Skin: clear Musculoskeletal: no pain - Labs Result Diagrams: 03/12/20 10:05 03/12/20 03:57 Troponin/CKMB CK-MB (CK-2) 0.7 ng/mL (0-6.6) 03/11/20 10:26 Troponin I 0.027 ng/mL (< 0.028) 03/11/20 20:02 - Telemetry Sinus rhythms and dysrhythmias: sinus rhythm - Assessment/Plan Assessment/Plan: 1. Acute PE 2. Chronic systolic heart failure 3. AICD in place. 4. Hx of LV thrombus on chronic eliquis. 5. Recent surgery debulking mass on liver. PLAN: - Continue anticoagulation with Xarelto. - Most likely she developed a DVT due to stopping Eliquis for her recent surgery but to be on safe side will switch to Xarelto. - May need blood transfusion. Would give IV lasix after every unit of blood.
[2020-03-12 13:52] LABS: SARS-CoV-2 MS2 Positive; SARS-CoV-2 N Gene Negative; SARS-CoV-2 S Gene Negative; SARS-CoV-2 by NAA Not Detected (NotDetected); SARS-CoV-2 orf1ab Negative
[2020-03-12] MEDS: Ondansetron ODT 4 MG TAB PO SCH ×2 (14:16→20:13)
[2020-03-12] MEDS: HYDROcodone/Acetaminophen 10/325 mg Tablet PO SCH ×2 (14:17→20:14)
--- NOTE | 2020-03-12 16:37 | CON ---
DATE OF CONSULTATION: REASON FOR CONSULTATION: Pulmonary embolus. HISTORY OF PRESENT ILLNESS: Ms. Weaver is a pleasant 64-year-old female who was diagnosed with stage IV colon cancer in 2016. She had metastasis to the liver and omentum at diagnosis. She underwent a partial colectomy with right upper quadrant colostomy. She has undergone multiple chemo regimens. Her last one was FOLFIRI with Avastin. In December, she underwent a CT scan for evaluation and had progression in 2 liver lesions. This is the only site of metastases. She has a history of cardiomyopathy and at diagnosis had EF of 15%. The echo done earlier this year showed that her left ventricular ejection fraction had improved to 30%. She was referred to Dr. Amado Blackwood in [place] for partial liver resection. This occurred on 02/24. She has a history of DVT and was taking Eliquis for over 3 years. This was stopped for approximately 10 to 12 days during this surgical process. She was recovering nicely, and due to see Dr. Blackwood yesterday when she began to have chest pain and shortness of breath. She was brought by EMS to our facility for evaluation. A CT angio was performed, which showed pulmonary emboli in the left lower lobe. There was bilateral pleural effusions. The patient was admitted for further workup. She had resumed her Eliquis and on it for a couple of weeks since surgery. She was started on therapeutic Lovenox. Dr. Leigh was consulted for her cardiomyopathy. She is resting comfortably at bedside. She does have some shortness of breath, particularly on exertion. She has a Peace catheter in place, has been placed since surgery, having some mild upper right quadrant abdominal wall pain. PAST MEDICAL HISTORY: 1. Stage IV colon cancer with liver mets. 2. History of pulmonary emboli. 3. Cardiomyopathy. 4. Hypertension. 5. Asthma. 6. Osteoporosis. 7. Basal cell carcinoma. PAST SURGICAL HISTORY: 1. Colectomy with colostomy placement. 2. Left salpingo-oophorectomy. 3. Defibrillator/pacemaker placement. 4. Basal cell removal. 5. Cervical dysplasia cautery. 6. Recent partial hepatectomy. ALLERGIES: TO RIFAMPIN. HOME MEDICATIONS: 1. Inhaler. 2. Lasix. 3. Hydrocodone. 4. Lisinopril. 5. Lorazepam. 6. Singulair. 7. Nortriptyline. 8. Zofran. 9. Protonix. 10. K-Dur. 11. Eliquis. 12. Coreg. FAMILY HISTORY: Grandmother had melanoma. Grandfather had liver cancer. Two uncles had colon cancer. SOCIAL HISTORY: , has 2 children. Lives with her spouse. Former smoker. No alcohol or illicit drug use. REVIEW OF SYSTEMS: Ten-point review of systems is negative except for noted in HPI. PHYSICAL EXAMINATION: VITAL SIGNS: Temperature is 97.5, pulse is 80, respiratory rate 16, BP is 118/60, and she is 98% on 2 L. GENERAL: A well-developed, well-nourished female, in no acute distress HEENT: Normocephalic and atraumatic. Pupils equal and reactive to light. NECK: Supple. CV: Regular rate and rhythm. LUNGS: Clear anterior. ABDOMEN: Soft. She has a right upper quadrant colostomy, midline incision with nikos intact. EXTREMITIES: No clubbing or cyanosis. SKIN: No rash. HEMATOLOGIC: No petechiae or purpura. NEUROLOGIC: Nonfocal. PERTINENT LABORATORY DATA AND X-RAYS: Current WBCs are 9.3, hemoglobin 7.8, hematocrit 24.3, platelet count is 230,000, 74% neutrophils, and 12% lymphocytes. D-dimer is 5.85. Chemistry: Sodium is 136, potassium 4.1, chloride 105, CO2 is 20, BUN is 18, creatinine is 1.17, and calcium 8.5. Bilirubin 0.6, AST is 39, ALT is 20, and alkaline phosphatase is 244. Troponin is 0.027 and BNP is 389. Serum total protein 7.4, albumin 4.2, globulin 3.2, and lipase 33. Urine showed 1+ bacteria. Radiology per HPI. ASSESSMENT: 1. Pulmonary embolus status post partial hepatectomy. 2. History of pulmonary emboli. 3. Stage IV colon cancer. 4. Chronic systolic heart failure. DISCUSSION: The patient's Eliquis was stopped for 10 to 12 days during the perioperative timeframe. She likely had developed clot at that time. I do not consider this an Eliquis failure. She has received Lovenox and now been transitioned to Xarelto, which I think is reasonable. Her hemoglobin on arrival was 10.4 and is now 7.8. There is no evidence of bleeding. Would recheck in a.m. and consider blood transfusion if continues to drop. The patient's surgeon, Dr. Blackwood, has been notified of admission and her appointment has been rescheduled. I would leave the Peace catheter in until she follows up with him. Thank you for the consult. Job ID: [id number]
[2020-03-12] MEDS: Mometasone 200 MCG/Formoterol 5 MCG 120 PUFF INHALER INH SCH (18:44)
[2020-03-12] MEDS: Montelukast Sodium 10 mg Tablet PO SCH (20:13)
[2020-03-12] MEDS ORDERED: Zolpidem Tartrate 5 MG TAB PO PRN (21:00)
[2020-03-12] MEDS ORDERED: Nortriptyline HCl 25 MG CAP PO PRN (21:00)
[2020-03-13] MEDS: HYDROcodone/Acetaminophen 5/325 mg Tablet PO PRN ×2 (03:29→08:42)
[2020-03-13 04:59] LABS: #Eosinphils 0.2 thou/uL (0.0-0.7); #Lymphocytes 1.1 thou/uL (1.20-3.40); #Monocytes 0.9 thou/uL (0.11-0.59); #Neutrophils 6.1 thou/uL (1.40-6.50); %Basophils 0.3 % (0.0-1.0); %Eosinophils 2.6 % (0.0-10.0); %Lymphocytes 12.9 % (21.0-51.0); %Monocytes 11.1 % (0.0-10.0); %Neutrophils 73.2 % (42.0-75.0); Hemoglobin 7.6 g/dL (12.0-16.0); Hemoglobin 7.7 g/dL (12.0-16.0); Mean Corpuscular Hemoglobin 27.8 pg (27.0-31.0); Mean Corpuscular Volume 89.8 fL (78.0-98.0); Mean Platelet Volume 9.7 fL (7.4-10.4); Platelet Count 245 thou/uL (130-400); Platelet Count 248 thou/uL (130-400); Red Blood Cell (RBC) Count 2.74 mill/uL (4.20-5.40); White Blood Cell (WBC) Count 8.3 thou/uL (4.8-10.8)
[2020-03-13] MEDS: HYDROcodone/Acetaminophen 10/325 mg Tablet PO SCH ×3 (05:13→21:43)
[2020-03-13 05:14] LABS: Anion Gap 12 mmol/L (10-20); BUN (Urea Nitrogen) 14 mg/dL (9.8-20.1); Calc. Creatinine Clearance 62 mL/min (70-130); Calcium 8.8 mg/dL (7.8-10.44); Carbon Dioxide 21 mmol/L (23-31); Chloride 108 mmol/L (98-107); Estimated GFR-MDRD 55; Glucose 101 mg/dL (80-115); Potassium 4.2 mmol/L (3.5-5.1); Sodium 137 mmol/L (136-145)
[2020-03-13] MEDS: Rivaroxaban 10 MG TAB PO SCH (05:32)
[2020-03-13] MEDS: Cefepime 2 GM in Sodium Chloride 0.9% 100 ML IVPB SCH ×2 (05:33→17:11)
[2020-03-13] MEDS: Mometasone 200 MCG/Formoterol 5 MCG 120 PUFF INHALER INH SCH ×2 (07:15→18:26)
[2020-03-13] MEDS: Lisinopril 10 MG TAB PO SCH (08:40)
[2020-03-13] MEDS: Potassium Chloride 20 MEQ TAB PO SCH (08:43)
[2020-03-13] MEDS: Furosemide 40 MG TAB PO SCH (08:43)
[2020-03-13] MEDS: Ondansetron ODT 4 MG TAB PO SCH ×3 (08:43→21:43)
[2020-03-13] MEDS: Carvedilol 3.125 MG TAB PO SCH ×2 (08:44→21:43)
--- NOTE | 2020-03-13 11:29 | PDOC.HOSPP ---
- Subjective Encounter Date: 03/13/20 Encounter Time: 11:20 Subjective: f/u for LLL PE converting to Xarelto and tolerating currently. Some mild SOB but overall improved. No output from colostomy x 5 days. Minimal po intake today. - Objective Vital Signs & Weight: Vital Signs (12 hours) Temp Pulse Resp BP Pulse Ox 03/13/20 10:57 97.5 F L 74 15 129/62 93 L 03/13/20 08:34 97.6 F 78 20 137/66 98 03/13/20 04:00 98.5 F 80 20 116/56 L 97 03/13/20 00:00 83 Weight Admit Weight 156 lb Weight 149 lb 9.6 oz I&O: 03/12/20 03/13/20 03/14/20 06:59 06:59 06:59 Intake Total 480 597 720 Output Total 3952 905 7691 Balance -620 76 -3388 Result Diagrams: 03/13/20 04:33 03/13/20 04:33 Additional Labs: Microbiology 03/11/20 10:45 Urine hopper catheter Urine Culture - Final Pseudomonas aeruginosa 03/11/20 17:27 Venous blood - Left Arm Blood Culture - Preliminary Specimen has been received and culture in progress. No Growth to date. 03/11/20 15:49 Venous blood - Right Arm Blood Culture - Preliminary Specimen has been received and culture in progress. No Growth to date. 03/11/20 10:45 Urine hopper catheter Urine Culture - Preliminary Presumptive Pseudo aeruginosa Laboratory Tests 03/11/20 03/11/20 03/11/20 10:26 10:26 10:26 WBC 16.6 H Hgb 10.4 L D-Dimer Creatinine 1.12 H Troponin I 0.032 H B-Natriuretic Peptide 03/11/20 03/11/20 03/11/20 12:22 14:07 15:49 WBC Hgb D-Dimer 5.85 H Creatinine Troponin I 0.033 H B-Natriuretic Peptide 389.7 H 03/11/20 03/11/20 03/12/20 17:27 20:02 03:57 WBC Hgb D-Dimer Creatinine 1.17 H Troponin I 0.034 H 0.027 B-Natriuretic Peptide 03/12/20 03/12/20 03/13/20 03:57 10:05 04:33 WBC Hgb 7.4 L 7.8 L 7.6 L D-Dimer Creatinine Troponin I B-Natriuretic Peptide EKG Reviewed by me: Yes (Tele - V-pacing) Hospitalist ROS - Medication Medications: Active Medications Generic Name Dose Route Start Last Admin Trade Name Freq PRN Reason Stop Dose Admin Acetaminophen 650 mg 03/11/20 14:57 03/11/20 18:12 Tylenol PO 650 mg Q4H PRN Administration Headache/Fever/Mild Pain (1-3) Hydrocodone Bitart/Acetaminophen 1 tab 03/11/20 14:57 03/13/20 08:42 [place] 5/325 PO 1 tab Q4H PRN Administration Moderate Pain (4-6) Hydrocodone Bitart/Acetaminophen 1 tab 03/12/20 14:00 03/13/20 05:13 [place] 10/325 PO Not Given Q8HR GON[facility]ALO Carvedilol 3.125 mg 03/11/20 21:00 03/13/20 08:44 Coreg PO 3.125 mg BID GONZALO Administration Furosemide 40 mg 03/12/20 09:00 03/13/20 08:43 Lasix PO 40 mg DAILY G[facility]ALO Administration Cefepime HCl 2 gm/ Sodium 100 mls @ 200 mls/hr 03/11/20 17:00 03/13/20 05:33 Chloride IVPB 100 mls 0500,1700 G[facility]O Administration Levofloxacin 750 mg/ Device 150 mls @ 100 mls/hr 03/11/20 17:00 03/12/20 17: 22 IVPB 150 mls Q24HR GONZALO Administration Lisinopril 10 mg 03/12/20 09:00 03/13/20 08:40 Zestril PO 10 mg DAILY [facility]O Administration Mometasone Furoate/Formoterol Fumar 1 puff 03/12/20 18:30 03/13/20 07:15 Dulera 200 Mcg/5 Mcg Inhaler INH 1 puff BID-RT GONZALO Administration Montelukast Sodium 10 mg 03/12/20 21:00 03/12/20 20:13 Singulair PO 10 mg HS GONZALO Administration Ondansetron HCl 8 mg 03/12/20 15:00 03/13/20 08:43 Zofran Odt PO 8 mg TID GONZALO Administration Pantoprazole Sodium 40 mg 03/12/20 21:00 03/13/20 08:43 Protonix PO 40 mg BID GONZALO Administration Potassium Chloride 20 meq 03/13/20 09:00 03/13/20 08:43 K-Dur PO 20 meq DAILY GONZALO Administration Rivaroxaban 20 mg 03/12/20 06:00 03/13/20 05:32 Xarelto PO 20 mg 0600 GONZALO Administration - Exam General Appearance: NAD, awake alert General - other findings: pale Eye: PERRL, anicteric sclera ENT: normocephalic atraumatic, no oropharyngeal lesions Neck: supple, symmetric, no JVD, no thyromegaly, no lymphadenopathy Heart: RRR, no gallops, no rubs, normal peripheral pulses Heart - other findings: S1, S2 Respiratory: no wheezes, no ronchi, normal chest expansion, tachypneic Respiratory - other findings: diminished in bases bilat Gastrointestinal: soft, non-distended, normal bowel sounds, no palpable masses Gastrointestinal - other findings: + ostomy in place, surgical scar intact, nikos removed, Hopper in place Extremities: no cyanosis, no clubbing, no edema Skin: normal turgor, no lesions Neurological: cranial nerve grossly intact, no new deficit Musculoskeletal: normal tone, generalized weakness Psychiatric: normal affect, A&O x 3 Hosp A/P (1) Acute pulmonary embolus Code(s): I26.99 - OTHER PULMONARY EMBOLISM WITHOUT ACUTE COR PULMONALE Status : Acute Plan: Continue Xarelto, monitor H/H closely (2) Acute anemia Code(s): D64.9 - ANEMIA, UNSPECIFIED Status: Acute Plan: Serial H/H low but stable, no PRBC's currently (3) CKD (chronic kidney disease), stage III Code(s): N18.3 - CHRONIC KIDNEY DISEASE, STAGE 3 (MODERATE) Status: Chronic Plan: Stable, avoid nephrotoxic meds and limit contrast exposure (4) Colon cancer metastasized to liver Code(s): C18.9 - MALIGNANT NEOPLASM OF COLON, UNSPECIFIED; C78.7 - SECONDARY MALIG NEOPLASM OF LIVER AND INTRAHEPATIC BILE DUCT Status: Chronic Plan: s/p partial hepatectomy, outpt oncology follow up (5) Pseudomonas urinary tract infection Code(s): N39.0 - URINARY TRACT INFECTION, SITE NOT SPECIFIED; B96.5 - PSEUDOMONAS (MALLEI) CAUSING DISEASES CLASSD ELSWHR Status: Acute Plan: Continue Cefepime another 24h then convert to Levaquin - Plan continue antibiotics, PT/OT, pediatric social worker, out of bed/ambulate, DVT proph w/ SCDs Stable currently Continue Xarelto Serial H/H Continue Cefepime, convert to Levaquin in 24h OOB with Walking program Miralax daily AM lab: H/H ? Home in 24h
[2020-03-13] MEDS ORDERED: Polyethylene Glycol 3350 17 GM Packet PO SCH (12:00)
[2020-03-13] MEDS: Montelukast Sodium 10 mg Tablet PO SCH (21:44)
[2020-03-14 04:45] LABS: Hemoglobin 8.4 g/dL (12.0-16.0); Platelet Count 283 thou/uL (130-400)
[2020-03-14] MEDS: HYDROcodone/Acetaminophen 10/325 mg Tablet PO SCH ×3 (05:12→21:36)
[2020-03-14] MEDS: Cefepime 2 GM in Sodium Chloride 0.9% 100 ML IVPB SCH (05:12)
[2020-03-14] MEDS: Rivaroxaban 10 MG TAB PO SCH (05:13)
[2020-03-14] MEDS: Ondansetron ODT 4 MG TAB PO PRN (05:16)
[2020-03-14] MEDS: Mometasone 200 MCG/Formoterol 5 MCG 120 PUFF INHALER INH SCH ×2 (08:18→18:31)
[2020-03-14] MEDS: Lisinopril 10 MG TAB PO SCH (08:36)
[2020-03-14] MEDS: Polyethylene Glycol 3350 17 GM Packet PO SCH (08:37)
[2020-03-14] MEDS: Furosemide 40 MG TAB PO SCH (08:37)
[2020-03-14] MEDS: Ondansetron ODT 4 MG TAB PO SCH ×3 (08:37→21:37)
[2020-03-14] MEDS: Carvedilol 3.125 MG TAB PO SCH ×2 (08:37→21:37)
[2020-03-14] MEDS: Potassium Chloride 20 MEQ TAB PO SCH (09:40)
--- NOTE | 2020-03-14 09:50 | PDOC.HOSPP ---
- Subjective Encounter Date: 03/14/20 Encounter Time: 09:35 Subjective: f/u for LLL PE on Xarelto and 2L/min NC. Feels weak and has not ambulated with PT. Nauseated this am but no emesis. Ostomy output increasing. - Objective Vital Signs & Weight: Vital Signs (12 hours) Temp Pulse Resp BP Pulse Ox 03/14/20 08:30 97.7 F 72 16 131/75 97 03/14/20 03:59 97.7 F 78 20 128/68 94 L Weight Admit Weight 156 lb Weight 153 lb I&O: 03/13/20 03/14/20 03/15/20 06:59 06:59 06:59 Intake Total 597 2620 Output Total 550 5750 Balance 47 -3130 Result Diagrams: 03/14/20 04:23 03/13/20 04:33 Additional Labs: Microbiology 03/11/20 10:45 Urine hopper catheter Urine Culture - Final Pseudomonas aeruginosa 03/11/20 17:27 Venous blood - Left Arm Blood Culture - Preliminary Specimen has been received and culture in progress. No Growth to date. 03/11/20 15:49 Venous blood - Right Arm Blood Culture - Preliminary Specimen has been received and culture in progress. No Growth to date. 03/11/20 10:45 Urine hopper catheter Urine Culture - Preliminary Presumptive Pseudo aeruginosa Laboratory Tests 03/11/20 03/11/20 03/11/20 10:26 10:26 10:26 WBC 16.6 H Hgb 10.4 L D-Dimer Creatinine 1.12 H Troponin I 0.032 H B-Natriuretic Peptide 03/11/20 03/11/20 03/11/20 12:22 14:07 15:49 WBC Hgb D-Dimer 5.85 H Creatinine Troponin I 0.033 H B-Natriuretic Peptide 389.7 H 03/11/20 03/11/20 03/12/20 17:27 20:02 03:57 WBC Hgb D-Dimer Creatinine 1.17 H Troponin I 0.034 H 0.027 B-Natriuretic Peptide 03/12/20 03/12/20 03/13/20 03:57 10:05 04:33 WBC Hgb 7.4 L 7.8 L 7.6 L D-Dimer Creatinine Troponin I B-Natriuretic Peptide EKG Reviewed by me: Yes (Tele - V-pacing) Hospitalist ROS - Medication Medications: Active Medications Generic Name Dose Route Start Last Admin Trade Name Freq PRN Reason Stop Dose Admin Acetaminophen 650 mg 03/11/20 14:57 03/11/20 18:12 Tylenol PO 650 mg Q4H PRN Administration Headache/Fever/Mild Pain (1-3) Hydrocodone Bitart/Acetaminophen 1 tab 03/11/20 14:57 03/13/20 08:42 [place] 5/325 PO 1 tab Q4H PRN Administration Moderate Pain (4-6) Hydrocodone Bitart/Acetaminophen 1 tab 03/12/20 14:00 03/14/20 05:12 [place] 10/325 PO 1 tab Q8HR GONZALO Administration Carvedilol 3.125 mg 03/11/20 21:00 03/14/20 08:37 Coreg PO 3.125 mg BID GONZALO Administration Furosemide 40 mg 03/12/20 09:00 03/14/20 08:37 Lasix PO 40 mg DAILY G[facility]O Administration Cefepime HCl 2 gm/ Sodium 100 mls @ 200 mls/hr 03/11/20 17:00 03/14/20 05:12 Chloride IVPB 100 mls 0500,1700 G[facility]O Administration Lisinopril 10 mg 03/12/20 09:00 03/14/20 08:36 Zestril PO 10 mg DAILY [facility] Administration Mometasone Furoate/Formoterol Fumar 1 puff 03/12/20 18:30 03/14/20 08:18 Dulera 200 Mcg/5 Mcg Inhaler INH 1 puff BID-RT GONZALO Administration Montelukast Sodium 10 mg 03/12/20 21:00 03/13/20 21:44 Singulair PO 10 mg HS GONZALO Administration Ondansetron HCl 4 mg 03/11/20 14:57 03/14/20 05:16 Zofran Odt PO 4 mg Q6H PRN Administration Nausea/Vomiting Ondansetron HCl 8 mg 03/12/20 15:00 03/14/20 08:37 Zofran Odt PO 8 mg TID GONZALO Administration Pantoprazole Sodium 40 mg 03/12/20 21:00 03/14/20 08:36 Protonix PO 40 mg BID GONZALO Administration Polyethylene Glycol 17 gm 03/14/20 09:00 03/14/20 08:37 Miralax PO Not Given DAILY [facility] Potassium Chloride 20 meq 03/13/20 09:00 03/14/20 09:40 K-Dur PO Not Given DAILY [facility] Rivaroxaban 20 mg 03/12/20 06:00 03/14/20 05:13 Xarelto PO 20 mg 0600 [facility] Administration - Exam General Appearance: NAD, awake alert Eye: PERRL, anicteric sclera ENT: normocephalic atraumatic, no oropharyngeal lesions Neck: supple, symmetric, no JVD, no thyromegaly Heart: RRR, no gallops, no rubs, normal peripheral pulses Heart - other findings: S1, S2 Respiratory: CTAB, no wheezes, no rales, no ronchi, normal chest expansion Gastrointestinal: soft, non-tender, non-distended, normal bowel sounds Gastrointestinal - other findings: ostomy in place with liquid stool, incision intact in midline Extremities: no cyanosis, no clubbing, no edema Skin: normal turgor Neurological: cranial nerve grossly intact, no new deficit Musculoskeletal: normal tone, generalized weakness Psychiatric: normal affect, A&O x 3 Hosp A/P (1) Acute pulmonary embolus Code(s): I26.99 - OTHER PULMONARY EMBOLISM WITHOUT ACUTE COR PULMONALE Status : Acute Plan: Continue Xarelto 20mg po daily, wean O2 as tolerated (2) Acute anemia Code(s): D64.9 - ANEMIA, UNSPECIFIED Status: Acute Plan: Stable currently, serial H/H, no PRBC's indicated (3) CKD (chronic kidney disease), stage III Code(s): N18.3 - CHRONIC KIDNEY DISEASE, STAGE 3 (MODERATE) Status: Chronic (4) Colon cancer metastasized to liver Code(s): C18.9 - MALIGNANT NEOPLASM OF COLON, UNSPECIFIED; C78.7 - SECONDARY MALIG NEOPLASM OF LIVER AND INTRAHEPATIC BILE DUCT Status: Chronic (5) Pseudomonas urinary tract infection Code(s): N39.0 - URINARY TRACT INFECTION, SITE NOT SPECIFIED; B96.5 - PSEUDOMONAS (MALLEI) CAUSING DISEASES CLASSD ELSWHR Status: Acute Plan: Convert to Levaquin 500mg po daily, d/c Cefepime - Plan continue antibiotics, PT/OT, health care social worker, respiratory therapy, out of bed/ ambulate, DVT proph w/SCDs Stable currently Continue Xarelto 20mg daily Serial H/H Convert to Levaquin 500mg po daily OOB/PT evaluation Miralax daily AM lab: H/H ? Home in 24h
[2020-03-14] MEDS: Promethazine 25 MG TAB PO PRN (18:03)
[2020-03-14] MEDS: Montelukast Sodium 10 mg Tablet PO SCH (21:37)
[2020-03-15] MEDS: HYDROcodone/Acetaminophen 5/325 mg Tablet PO PRN (00:04)
[2020-03-15] MEDS: Promethazine 25 MG TAB PO PRN (00:05)
[2020-03-15 04:50] LABS: Hemoglobin 8.6 g/dL (12.0-16.0); Platelet Count 324 thou/uL (130-400)
[2020-03-15] MEDS: HYDROcodone/Acetaminophen 10/325 mg Tablet PO SCH ×3 (05:45→20:50)
[2020-03-15] MEDS: Rivaroxaban 10 MG TAB PO SCH (05:45)
[2020-03-15] MEDS: Ondansetron ODT 4 MG TAB PO SCH ×3 (08:12→20:50)
[2020-03-15] MEDS: Furosemide 40 MG TAB PO SCH (08:12)
[2020-03-15] MEDS: Potassium Chloride 20 MEQ TAB PO SCH (08:13)
[2020-03-15] MEDS: Lisinopril 10 MG TAB PO SCH (08:13)
[2020-03-15] MEDS: Polyethylene Glycol 3350 17 GM Packet PO SCH (08:13)
[2020-03-15] MEDS: Carvedilol 3.125 MG TAB PO SCH ×2 (08:13→20:50)
[2020-03-15] MEDS: Mometasone 200 MCG/Formoterol 5 MCG 120 PUFF INHALER INH SCH ×2 (08:16→19:25)
--- NOTE | 2020-03-15 09:54 | PDOC.HOSPP ---
- Subjective Encounter Date: 03/15/20 Encounter Time: 09:35 Subjective: f/u for LLL PE on current Xarelto. Off O2 currently and worked with PT walking short distance. Feels like she may benefit from rehab due to weakness and recovering from recent liver resection. - Objective Vital Signs & Weight: Vital Signs (12 hours) Temp Pulse Resp BP Pulse Ox 03/15/20 07:48 97.9 F 83 12 137/74 93 L 03/15/20 04:03 98.4 F 76 18 118/63 94 L 03/15/20 00:03 97.1 F L 85 20 138/74 93 L Weight Admit Weight 156 lb Weight 148 lb 11.2 oz I&O: 03/14/20 03/15/20 03/16/20 06:59 06:59 06:59 Intake Total 2620 600 Output Total 5750 5485 Balance -6104 -2631 Result Diagrams: 03/15/20 04:22 03/13/20 04:33 Additional Labs: Microbiology 03/11/20 10:45 Urine hopper catheter Urine Culture - Final Pseudomonas aeruginosa 03/11/20 17:27 Venous blood - Left Arm Blood Culture - Preliminary Specimen has been received and culture in progress. No Growth to date. 03/11/20 15:49 Venous blood - Right Arm Blood Culture - Preliminary Specimen has been received and culture in progress. No Growth to date. 03/11/20 10:45 Urine hopper catheter Urine Culture - Preliminary Presumptive Pseudo aeruginosa Laboratory Tests 03/11/20 03/11/20 03/11/20 10:26 10:26 10:26 WBC 16.6 H Hgb 10.4 L D-Dimer Creatinine 1.12 H Troponin I 0.032 H B-Natriuretic Peptide 03/11/20 03/11/20 03/11/20 12:22 14:07 15:49 WBC Hgb D-Dimer 5.85 H Creatinine Troponin I 0.033 H B-Natriuretic Peptide 389.7 H 03/11/20 03/11/20 03/12/20 17:27 20:02 03:57 WBC Hgb D-Dimer Creatinine 1.17 H Troponin I 0.034 H 0.027 B-Natriuretic Peptide 03/12/20 03/12/20 03/13/20 03:57 10:05 04:33 WBC Hgb 7.4 L 7.8 L 7.6 L D-Dimer Creatinine Troponin I B-Natriuretic Peptide EKG Reviewed by me: Yes (Tele - V-pacing) Hospitalist ROS - Medication Medications: Active Medications Generic Name Dose Route Start Last Admin Trade Name Freq PRN Reason Stop Dose Admin Acetaminophen 650 mg 03/11/20 14:57 03/11/20 18:12 Tylenol PO 650 mg Q4H PRN Administration Headache/Fever/Mild Pain (1-3) Hydrocodone Bitart/Acetaminophen 1 tab 03/11/20 14:57 03/15/20 00:04 [place] 5/325 PO 1 tab Q4H PRN Administration Moderate Pain (4-6) Hydrocodone Bitart/Acetaminophen 1 tab 03/12/20 14:00 03/15/20 05:45 [place] 10/325 PO 1 tab Q8HR GONZALO Administration Carvedilol 3.125 mg 03/11/20 21:00 03/15/20 08:13 Coreg PO 3.125 mg BID GONZALO Administration Furosemide 40 mg 03/12/20 09:00 03/15/20 08:12 Lasix PO 40 mg DAILY GONZALO Administration Levofloxacin 500 mg 03/15/20 06:00 03/15/20 05:45 Levaquin PO 500 mg 0600 GONZALO Administration Lisinopril 10 mg 03/12/20 09:00 03/15/20 08:13 Zestril PO 10 mg DAILY GONZALO Administration Lorazepam 1 mg 03/12/20 09:23 03/14/20 21:36 Ativan PO 1 mg BIDPRN PRN Administration Anxiety Mometasone Furoate/Formoterol Fumar 1 puff 03/12/20 18:30 03/15/20 08:16 Dulera 200 Mcg/5 Mcg Inhaler INH 1 puff BID-RT GONZALO Administration Montelukast Sodium 10 mg 03/12/20 21:00 03/14/20 21:37 Singulair PO 10 mg HS GONZALO Administration Ondansetron HCl 4 mg 03/11/20 14:57 03/14/20 05:16 Zofran Odt PO 4 mg Q6H PRN Administration Nausea/Vomiting Ondansetron HCl 8 mg 03/12/20 15:00 03/15/20 08:12 Zofran Odt PO 8 mg TID GONZALO Administration Pantoprazole Sodium 40 mg 03/12/20 21:00 03/15/20 08:12 Protonix PO 40 mg BID GONZALO Administration Polyethylene Glycol 17 gm 03/14/20 09:00 03/15/20 08:13 Miralax PO Not Given DAILY GONZALO Potassium Chloride 20 meq 03/13/20 09:00 03/15/20 08:13 K-Dur PO 20 meq DAILY GONZALO Administration Promethazine HCl 25 mg 03/12/20 09:23 03/15/20 00:05 Phenergan PO 25 mg Q6HR PRN Administration Nausea Rivaroxaban 20 mg 03/12/20 06:00 03/15/20 05:45 Xarelto PO 20 mg 0600 GONZALO Administration - Exam General Appearance: NAD, awake alert Eye: PERRL, anicteric sclera ENT: normocephalic atraumatic, no oropharyngeal lesions Neck: supple, symmetric, no JVD, no thyromegaly Heart: RRR, no gallops, no rubs, normal peripheral pulses Heart - other findings: S1, S2 Respiratory: CTAB, no wheezes, no rales, no ronchi, normal chest expansion Gastrointestinal: soft, non-tender, non-distended, normal bowel sounds, no palpable masses Gastrointestinal - other findings: +ostomy Extremities: no cyanosis, no clubbing Skin: normal turgor Neurological: cranial nerve grossly intact, no new deficit Musculoskeletal: normal tone, generalized weakness Psychiatric: normal affect, A&O x 3 Hosp A/P (1) Acute pulmonary embolus Code(s): I26.99 - OTHER PULMONARY EMBOLISM WITHOUT ACUTE COR PULMONALE Status : Acute Plan: Continue Xarelto 20mg po daily (2) Acute anemia Code(s): D64.9 - ANEMIA, UNSPECIFIED Status: Acute Plan: Stable currently, no PRBC's indicated (3) CKD (chronic kidney disease), stage III Code(s): N18.3 - CHRONIC KIDNEY DISEASE, STAGE 3 (MODERATE) Status: Chronic (4) Colon cancer metastasized to liver Code(s): C18.9 - MALIGNANT NEOPLASM OF COLON, UNSPECIFIED; C78.7 - SECONDARY MALIG NEOPLASM OF LIVER AND INTRAHEPATIC BILE DUCT Status: Chronic (5) Pseudomonas urinary tract infection Code(s): N39.0 - URINARY TRACT INFECTION, SITE NOT SPECIFIED; B96.5 - PSEUDOMONAS (MALLEI) CAUSING DISEASES CLASSD ELSWHR Status: Acute Plan: Continue Levaquin - Plan continue antibiotics, PT/OT, social media manager, out of bed/ambulate, DVT proph w/ SCDs Stable currently Continue Xarelto 20mg daily Serial H/H Convert to Levaquin 500mg po daily OOB/PT evaluation Miralax daily Rehab screening pending
--- NOTE | 2020-03-15 12:47 | PDOC.CPN ---
- Subjective Date: 03/15/20 Time: 12:44 Interval history: She is doign well. Her hgb has remained stable without any transfusions. Breathing is at baseline. Very weak with any exertion. - Review of Systems General: reports: fatigue. denies: fever/chills, weight/appetite/sleep changes , night sweats Respiratory: reports: exercise intolerance. denies: cough, congestion, shortness of breath Cardiovascular: denies: chest pain, palpitation, edema, paroxysmal nocturnal dyspnea, orthopnea Gastrointestinal: denies: nausea, vomiting, diarrhea, constipation, abd pain, GI bleeding Musculoskeletal: denies: pain, tenderness, stiffness, swelling, arthritis/ arthralgias Neurological: denies: numbness, syncope, seizure, weakness - Objective Allergies/Adverse Reactions: Allergies Allergy/AdvReac Type Severity Reaction Status Date / Time rifampin AdvReac hallucinati Verified 10/14/19 00:39 ons Visit Medications: Current Medications Acetaminophen (Tylenol) 650 mg PO Q4H PRN PRN Reason: Headache/Fever/Mild Pain (1-3) Last Admin: 03/11/20 18:12 Dose: 650 mg Hydrocodone Bitart/Acetaminophen ([place] 5/325) 1 tab PO Q4H PRN PRN Reason: Moderate Pain (4-6) Last Admin: 03/15/20 00:04 Dose: 1 tab Hydrocodone Bitart/Acetaminophen ([place] 10/325) 1 tab PO Q8HR [facility] Last Admin: 03/15/20 05:45 Dose: 1 tab Albuterol Sulfate (Ventolin) 2.5 mg NEB Q4H PRN PRN Reason: Dyspnea/Wheezing/SOB Carvedilol (Coreg) 3.125 mg PO BID [facility] Last Admin: 03/15/20 08:13 Dose: 3.125 mg Cyclobenzaprine HCl (Flexeril) 10 mg PO TIDPRN PRN PRN Reason: Muscle Spasm Furosemide (Lasix) 40 mg PO DAILY [facility] Last Admin: 03/15/20 08:12 Dose: 40 mg Levofloxacin (Levaquin) 500 mg PO 0600 [facility] Last Admin: 03/15/20 05:45 Dose: 500 mg Lisinopril (Zestril) 10 mg PO DAILY [facility] Last Admin: 03/15/20 08:13 Dose: 10 mg Lorazepam (Ativan) 1 mg PO BIDPRN PRN PRN Reason: Anxiety Last Admin: 03/14/20 21:36 Dose: 1 mg Mometasone Furoate/Formoterol Fumar (Dulera 200 Mcg/5 Mcg Inhaler) 1 puff INH BID-RT [facility] Last Admin: 03/15/20 08:16 Dose: 1 puff Montelukast Sodium (Singulair) 10 mg PO HS [facility] Last Admin: 03/14/20 21:37 Dose: 10 mg Nortriptyline HCl (Pamelor) 50 mg PO HS PRN PRN Reason: Insomnia Ondansetron HCl (Zofran Odt) 4 mg PO Q6H PRN PRN Reason: Nausea/Vomiting Last Admin: 03/14/20 05:16 Dose: 4 mg Ondansetron HCl (Zofran Odt) 8 mg PO TID [facility] Last Admin: 03/15/20 08:12 Dose: 8 mg Pantoprazole Sodium (Protonix) 40 mg PO BID [facility] Last Admin: 03/15/20 08:12 Dose: 40 mg Polyethylene Glycol (Miralax) 17 gm PO DAILY [facility] Last Admin: 03/15/20 08:13 Dose: Not Given Potassium Chloride (K-Dur) 20 meq PO DAILY [facility] Last Admin: 03/15/20 08:13 Dose: 20 meq Promethazine HCl (Phenergan) 25 mg PO Q6HR PRN PRN Reason: Nausea Last Admin: 03/15/20 00:05 Dose: 25 mg Rivaroxaban (Xarelto) 20 mg PO 0600 [facility] Last Admin: 03/15/20 05:45 Dose: 20 mg Zolpidem Tartrate (Ambien) 10 mg PO HS PRN PRN Reason: Insomnia Vital Signs & Weight: Vital Signs Temp Pulse Resp BP Pulse Ox 03/15/20 12:40 98.7 F 81 12 133/77 98 03/15/20 07:48 97.9 F 83 12 137/74 93 L 03/15/20 04:03 98.4 F 76 18 118/63 94 L Admit Weight 156 lb Weight 148 lb 11.2 oz - Physical Exam General: alert & oriented x3 HEENT: mucus membranes moist Neck: supple neck Cardiac: regular rate and rhythm Lungs: clear to auscultation Neuro: grossly intact Abdomen: active bowel sounds Extremities: no edema Skin: clear Musculoskeletal: no pain - Labs Result Diagrams: 03/15/20 04:22 03/13/20 04:33 Troponin/CKMB CK-MB (CK-2) 0.7 ng/mL (0-6.6) 03/11/20 10:26 Troponin I 0.027 ng/mL (< 0.028) 03/11/20 20:02 - Telemetry Sinus rhythms and dysrhythmias: sinus rhythm - Assessment/Plan Assessment/Plan: 1. Acute PE 2. Chronic systolic heart failure 3. AICD in place. 4. Hx of LV thrombus on chronic eliquis. 5. Recent surgery debulking mass on liver. PLAN: - We spoke about availability of Xarelto for her. We have been able to give her Eliquis with mostly samples. We do not have enough samples of Xarelto to continue in the same manner we have on Eliquis. Will have to get her back on eliquis for now. As stated before this was most likely not an Eliquis fail but related to being off the medication for 10 - 12 days. - Agree with inpt rehab.
--- NOTE | 2020-03-15 16:37 | PDOC.MOPN ---
Interval History: Less SOB but feels weak. - Vital Signs Vital Signs: Vital Signs (12 hours) Temp Pulse Pulse Pulse Resp BP BP 03/15/20 15:50 98.1 F 85 12 03/15/20 14:39 83 85 140/77 165/80 H 03/15/20 12:40 98.7 F 81 12 03/15/20 07:48 97.9 F 83 12 BP Pulse Ox Pulse Ox Pulse Ox 03/15/20 15:50 144/74 H 97 03/15/20 14:39 95 97 03/15/20 12:40 133/77 98 03/15/20 07:48 137/74 93 L Weight Admit Weight 156 lb Weight 148 lb 11.2 oz - Physical Exam General: Alert, Oriented x3, No acute distress HEENT: Atraumatic, PERRLA, EOMI, Mucous membr. moist/pink Lungs: Clear to auscultation, Normal air movement Cardiovascular: Regular rate, Normal S1, Normal S2, No murmurs, Gallops, Rubs Abdomen: Other Neurological: Normal speech - Labs Result Diagrams: 03/15/20 04:22 03/13/20 04:33 Lab results: Laboratory Results - last 24 hr 03/15/20 04:22: Hgb 8.6 L, Hct 26.5 L, Plt Count 324 Status: lab reviewed by me A/P - Problem (1) Acute pulmonary embolus Current Visit: Yes Code(s): I26.99 - OTHER PULMONARY EMBOLISM WITHOUT ACUTE COR PULMONALE Status: Acute (2) Colon cancer Current Visit: No Code(s): C18.9 - MALIGNANT NEOPLASM OF COLON, UNSPECIFIED Status: Acute - Plan Plan: Patient back on Eliquis for PE while off med for surgery Peace cath remains in place Await rehab placement monitor CBC, hgb stable.
[2020-03-15] MEDS: Montelukast Sodium 10 mg Tablet PO SCH (20:50)
[2020-03-16] MEDS: HYDROcodone/Acetaminophen 5/325 mg Tablet PO PRN (03:20)
[2020-03-16] MEDS: Ondansetron ODT 4 MG TAB PO PRN (03:23)
[2020-03-16] MEDS: HYDROcodone/Acetaminophen 10/325 mg Tablet PO SCH ×3 (05:36→20:46)
[2020-03-16] MEDS: Promethazine 25 MG TAB PO PRN ×2 (05:56→18:22)
[2020-03-16] MEDS: Mometasone 200 MCG/Formoterol 5 MCG 120 PUFF INHALER INH SCH ×2 (06:59→18:17)
[2020-03-16] MEDS: Lisinopril 10 MG TAB PO SCH (07:53)
[2020-03-16] MEDS: Apixaban 5 MG TAB PO SCH ×2 (07:53→20:45)
[2020-03-16] MEDS: Furosemide 40 MG TAB PO SCH (07:53)
[2020-03-16] MEDS: Ondansetron ODT 4 MG TAB PO SCH ×3 (07:53→20:46)
[2020-03-16] MEDS: Potassium Chloride 20 MEQ TAB PO SCH (07:53)
[2020-03-16] MEDS: Carvedilol 3.125 MG TAB PO SCH ×2 (07:54→20:45)
[2020-03-16] MEDS: Polyethylene Glycol 3350 17 GM Packet PO SCH (07:54)
--- NOTE | 2020-03-16 12:16 | PDOC.CPN ---
- Subjective Date: 03/16/20 Time: 12:14 Interval history: No new issues. Remains very weak. No bleeding issues. - Review of Systems General: reports: fatigue. denies: fever/chills, weight/appetite/sleep changes , night sweats Respiratory: denies: cough, congestion, shortness of breath, exercise intolerance Cardiovascular: denies: chest pain, palpitation, edema, paroxysmal nocturnal dyspnea, orthopnea Gastrointestinal: denies: nausea, vomiting, diarrhea, constipation, abd pain, GI bleeding Musculoskeletal: denies: pain, tenderness, stiffness, swelling, arthritis/ arthralgias Neurological: denies: numbness, syncope, seizure, weakness - Objective Allergies/Adverse Reactions: Allergies Allergy/AdvReac Type Severity Reaction Status Date / Time rifampin AdvReac hallucinati Verified 10/14/19 00:39 ons Visit Medications: Current Medications Acetaminophen (Tylenol) 650 mg PO Q4H PRN PRN Reason: Headache/Fever/Mild Pain (1-3) Last Admin: 03/11/20 18:12 Dose: 650 mg Hydrocodone Bitart/Acetaminophen ([place] 5/325) 1 tab PO Q4H PRN PRN Reason: Moderate Pain (4-6) Last Admin: 03/16/20 03:20 Dose: 1 tab Hydrocodone Bitart/Acetaminophen ([place] 10/325) 1 tab PO Q8HR [facility] Last Admin: 03/16/20 05:36 Dose: 1 tab Albuterol Sulfate (Ventolin) 2.5 mg NEB Q4H PRN PRN Reason: Dyspnea/Wheezing/SOB Apixaban (Eliquis) 5 mg PO BID [facility] Last Admin: 03/16/20 07:53 Dose: 5 mg Carvedilol (Coreg) 3.125 mg PO BID [facility] Last Admin: 03/16/20 07:54 Dose: 3.125 mg Cyclobenzaprine HCl (Flexeril) 10 mg PO TIDPRN PRN PRN Reason: Muscle Spasm Furosemide (Lasix) 40 mg PO DAILY [facility] Last Admin: 03/16/20 07:53 Dose: 40 mg Levofloxacin (Levaquin) 500 mg PO 0600 [facility] Last Admin: 03/16/20 05:36 Dose: 500 mg Lisinopril (Zestril) 10 mg PO DAILY [facility] Last Admin: 03/16/20 07:53 Dose: 10 mg Lorazepam (Ativan) 1 mg PO BIDPRN PRN PRN Reason: Anxiety Last Admin: 03/14/20 21:36 Dose: 1 mg Mometasone Furoate/Formoterol Fumar (Dulera 200 Mcg/5 Mcg Inhaler) 1 puff INH BID-RT [facility] Last Admin: 03/16/20 06:59 Dose: 1 puff Montelukast Sodium (Singulair) 10 mg PO HS [facility] Last Admin: 03/15/20 20:50 Dose: 10 mg Nortriptyline HCl (Pamelor) 50 mg PO HS PRN PRN Reason: Insomnia Ondansetron HCl (Zofran Odt) 4 mg PO Q6H PRN PRN Reason: Nausea/Vomiting Last Admin: 03/16/20 03:23 Dose: 4 mg Ondansetron HCl (Zofran Odt) 8 mg PO TID [facility] Last Admin: 03/16/20 07:53 Dose: 8 mg Pantoprazole Sodium (Protonix) 40 mg PO BID [facility] Last Admin: 03/16/20 07:53 Dose: 40 mg Polyethylene Glycol (Miralax) 17 gm PO DAILY [facility] Last Admin: 03/16/20 07:54 Dose: Not Given Potassium Chloride (K-Dur) 20 meq PO DAILY [facility] Last Admin: 03/16/20 07:53 Dose: 20 meq Promethazine HCl (Phenergan) 25 mg PO Q6HR PRN PRN Reason: Nausea Last Admin: 03/16/20 05:56 Dose: 25 mg Zolpidem Tartrate (Ambien) 10 mg PO HS PRN PRN Reason: Insomnia Vital Signs & Weight: Vital Signs Temp Pulse Resp BP BP Pulse Ox 03/16/20 11:43 97.9 F 83 20 149/71 H 83 L 03/16/20 07:53 133/69 03/16/20 07:48 97.5 F L 76 18 133/69 96 03/16/20 03:36 98.2 F 76 18 142/75 H 97 03/16/20 01:01 96 Admit Weight 156 lb Weight 144 lb - Physical Exam General: alert & oriented x3 HEENT: mucus membranes moist Neck: supple neck Cardiac: regular rate and rhythm Lungs: clear to auscultation Neuro: grossly intact Abdomen: active bowel sounds Extremities: no edema Skin: clear - Labs Result Diagrams: 03/15/20 04:22 03/13/20 04:33 Troponin/CKMB CK-MB (CK-2) 0.7 ng/mL (0-6.6) 03/11/20 10:26 Troponin I 0.027 ng/mL (< 0.028) 03/11/20 20:02 - Telemetry Sinus rhythms and dysrhythmias: sinus rhythm - Assessment/Plan Assessment/Plan: 1. Acute PE 2. Chronic systolic heart failure 3. AICD in place. 4. Hx of LV thrombus on chronic eliquis. 5. Recent surgery debulking mass on liver. PLAN: - Continue Eliquis. - Continue plan for inpatient rehab. - Agree with up titration of ACEI for BP control.
--- NOTE | 2020-03-16 14:40 | PDOC.HOSPP ---
- Subjective Encounter Date: 03/16/20 Encounter Time: 14:25 Subjective: f/u for LLL PE on Xarelto. Feels weak but working with PT. Awaiting inpt rehab approval. - Objective Vital Signs & Weight: Vital Signs (12 hours) Temp Pulse Resp BP BP Pulse Ox 03/16/20 11:43 97.9 F 83 20 149/71 H 83 L 03/16/20 07:53 133/69 03/16/20 07:48 97.5 F L 76 18 133/69 96 03/16/20 03:36 98.2 F 76 18 142/75 H 97 Weight Admit Weight 156 lb Weight 144 lb I&O: 03/15/20 03/16/20 03/17/20 06:59 06:59 06:59 Intake Total 600 1440 Output Total 2475 1800 Balance -1875 -360 Result Diagrams: 03/15/20 04:22 03/13/20 04:33 Additional Labs: Microbiology 03/11/20 10:45 Urine hopper catheter Urine Culture - Final Pseudomonas aeruginosa 03/11/20 17:27 Venous blood - Left Arm Blood Culture - Preliminary Specimen has been received and culture in progress. No Growth to date. 03/11/20 15:49 Venous blood - Right Arm Blood Culture - Preliminary Specimen has been received and culture in progress. No Growth to date. 03/11/20 10:45 Urine hopper catheter Urine Culture - Preliminary Presumptive Pseudo aeruginosa Laboratory Tests 03/11/20 03/11/20 03/11/20 10:26 10:26 10:26 WBC 16.6 H Hgb 10.4 L D-Dimer Creatinine 1.12 H Troponin I 0.032 H B-Natriuretic Peptide 03/11/20 03/11/20 03/11/20 12:22 14:07 15:49 WBC Hgb D-Dimer 5.85 H Creatinine Troponin I 0.033 H B-Natriuretic Peptide 389.7 H 03/11/20 03/11/20 03/12/20 17:27 20:02 03:57 WBC Hgb D-Dimer Creatinine 1.17 H Troponin I 0.034 H 0.027 B-Natriuretic Peptide 03/12/20 03/12/20 03/13/20 03:57 10:05 04:33 WBC Hgb 7.4 L 7.8 L 7.6 L D-Dimer Creatinine Troponin I B-Natriuretic Peptide EKG Reviewed by me: Yes (Tele - V-pacing) Hospitalist ROS - Medication Medications: Active Medications Generic Name Dose Route Start Last Admin Trade Name Freq PRN Reason Stop Dose Admin Acetaminophen 650 mg 03/11/20 14:57 03/11/20 18:12 Tylenol PO 650 mg Q4H PRN Administration Headache/Fever/Mild Pain (1-3) Hydrocodone Bitart/Acetaminophen 1 tab 03/11/20 14:57 03/16/20 03:20 [place] 5/325 PO 1 tab Q4H PRN Administration Moderate Pain (4-6) Hydrocodone Bitart/Acetaminophen 1 tab 03/12/20 14:00 03/16/20 05:36 [place] 10/325 PO 1 tab Q8HR GONZALO Administration Apixaban 5 mg 03/16/20 09:00 03/16/20 07:53 Eliquis PO 5 mg BID GONZALO Administration Carvedilol 3.125 mg 03/11/20 21:00 03/16/20 07:54 Coreg PO 3.125 mg BID GONZALO Administration Furosemide 40 mg 03/12/20 09:00 03/16/20 07:53 Lasix PO 40 mg DAILY GONZALO Administration Levofloxacin 500 mg 03/15/20 06:00 03/16/20 05:36 Levaquin PO 500 mg 0600 GONZALO Administration Lisinopril 10 mg 03/12/20 09:00 03/16/20 07:53 Zestril PO 10 mg DAILY GONZALO Administration Lorazepam 1 mg 03/12/20 09:23 03/14/20 21:36 Ativan PO 1 mg BIDPRN PRN Administration Anxiety Mometasone Furoate/Formoterol Fumar 1 puff 03/12/20 18:30 03/16/20 06:59 Dulera 200 Mcg/5 Mcg Inhaler INH 1 puff BID-RT GONZALO Administration Montelukast Sodium 10 mg 03/12/20 21:00 03/15/20 20:50 Singulair PO 10 mg HS GONZALO Administration Ondansetron HCl 4 mg 03/11/20 14:57 03/16/20 03:23 Zofran Odt PO 4 mg Q6H PRN Administration Nausea/Vomiting Ondansetron HCl 8 mg 03/12/20 15:00 03/16/20 07:53 Zofran Odt PO 8 mg TID GONZALO Administration Pantoprazole Sodium 40 mg 03/12/20 21:00 03/16/20 07:53 Protonix PO 40 mg BID GONZALO Administration Polyethylene Glycol 17 gm 03/14/20 09:00 03/16/20 07:54 Miralax PO Not Given DAILY GONZALO Potassium Chloride 20 meq 03/13/20 09:00 03/16/20 07:53 K-Dur PO 20 meq DAILY GONZALO Administration Promethazine HCl 25 mg 03/12/20 09:23 03/16/20 05:56 Phenergan PO 25 mg Q6HR PRN Administration Nausea - Exam General Appearance: NAD, awake alert Eye: PERRL, anicteric sclera ENT: normocephalic atraumatic, no oropharyngeal lesions Neck: supple, symmetric, no JVD, no thyromegaly Heart: RRR, no gallops, no rubs, normal peripheral pulses Heart - other findings: S1, S2 Respiratory: CTAB, no wheezes, no rales, no ronchi, normal chest expansion Gastrointestinal: soft, non-tender, non-distended, normal bowel sounds Gastrointestinal - other findings: + ostomy in place, surgical incision intact Extremities: no cyanosis, no clubbing, no edema Skin: normal turgor Neurological: cranial nerve grossly intact, no new deficit Musculoskeletal: normal tone, generalized weakness Psychiatric: normal affect, normal behavior, A&O x 3 Hosp A/P (1) Acute pulmonary embolus Code(s): I26.99 - OTHER PULMONARY EMBOLISM WITHOUT ACUTE COR PULMONALE Status : Acute Plan: Continue Xarelto, O2 PRN (2) Acute anemia Code(s): D64.9 - ANEMIA, UNSPECIFIED Status: Acute Plan: H/H trend improved, no current active loss, likely post-op in origin after recent liver resection (3) CKD (chronic kidney disease), stage III Code(s): N18.3 - CHRONIC KIDNEY DISEASE, STAGE 3 (MODERATE) Status: Chronic (4) Colon cancer metastasized to liver Code(s): C18.9 - MALIGNANT NEOPLASM OF COLON, UNSPECIFIED; C78.7 - SECONDARY MALIG NEOPLASM OF LIVER AND INTRAHEPATIC BILE DUCT Status: Chronic (5) Pseudomonas urinary tract infection Code(s): N39.0 - URINARY TRACT INFECTION, SITE NOT SPECIFIED; B96.5 - PSEUDOMONAS (MALLEI) CAUSING DISEASES CLASSD ELSWHR Status: Acute Plan: Continue Levaquin - Plan continue antibiotics, PT/OT, executive secretary social welfare, out of bed/ambulate, DVT proph w/ SCDs Stable currently Continue Xarelto 20mg daily Serial H/H Convert to Levaquin 500mg po daily OOB/PT evaluation Miralax daily Rehab screening pending AM lab: H/H
[2020-03-16] MEDS: Acetaminophen 325 MG TAB PO PRN (18:22)
[2020-03-16] MEDS: Montelukast Sodium 10 mg Tablet PO SCH (20:45)
[2020-03-17] MEDS: Ondansetron ODT 4 MG TAB PO PRN (03:17)
[2020-03-17] MEDS: HYDROcodone/Acetaminophen 5/325 mg Tablet PO PRN ×2 (03:17→08:43)
[2020-03-17 04:18] LABS: Hemoglobin 10.4 g/dL (12.0-16.0); Platelet Count 344 thou/uL (130-400)
[2020-03-17] MEDS: Promethazine 25 MG TAB PO PRN (06:02)
[2020-03-17] MEDS: HYDROcodone/Acetaminophen 10/325 mg Tablet PO SCH ×2 (06:03→14:39)
[2020-03-17] MEDS: Mometasone 200 MCG/Formoterol 5 MCG 120 PUFF INHALER INH SCH (07:04)
[2020-03-17] MEDS: Carvedilol 3.125 MG TAB PO SCH (08:42)
[2020-03-17] MEDS: Ondansetron ODT 4 MG TAB PO SCH ×2 (08:43→14:39)
[2020-03-17] MEDS: Potassium Chloride 20 MEQ TAB PO SCH (08:43)
[2020-03-17] MEDS: Furosemide 40 MG TAB PO SCH (08:44)
[2020-03-17] MEDS: Polyethylene Glycol 3350 17 GM Packet PO SCH (08:44)
[2020-03-17] MEDS: Apixaban 5 MG TAB PO SCH (08:44)
[2020-03-17] MEDS: Lisinopril 10 MG TAB PO SCH (08:44)
[2020-03-17 13:29] VITALS: BMI 21.9
--- NOTE | 2020-03-17 14:34 | PDOC.HOSPP ---
- Subjective Encounter Date: 03/17/20 Encounter Time: 14:25 Subjective: f/u for LLL PE on Xarelto. Feeling ok overall. Ambulated to doorway. s/p 1u PRBC 's and tolerated. - Objective Vital Signs & Weight: Vital Signs (12 hours) Temp Pulse Resp BP Pulse Ox 03/17/20 12:18 97.7 F 75 16 143/72 H 97 03/17/20 08:36 98.2 F 79 16 146/72 H 95 03/17/20 03:44 98.1 F 67 15 140/72 96 Weight Admit Weight 156 lb Weight 139 lb 11.2 oz I&O: 03/16/20 03/17/20 03/18/20 06:59 06:59 06:59 Intake Total 1440 2050 Output Total 1800 1775 Balance -360 275 Result Diagrams: 03/17/20 03:58 03/13/20 04:33 Additional Labs: Microbiology 03/11/20 10:45 Urine hopper catheter Urine Culture - Final Pseudomonas aeruginosa 03/11/20 17:27 Venous blood - Left Arm Blood Culture - Preliminary Specimen has been received and culture in progress. No Growth to date. 03/11/20 15:49 Venous blood - Right Arm Blood Culture - Preliminary Specimen has been received and culture in progress. No Growth to date. 03/11/20 10:45 Urine hopper catheter Urine Culture - Preliminary Presumptive Pseudo aeruginosa Laboratory Tests 03/11/20 03/11/20 03/11/20 10:26 10:26 10:26 WBC 16.6 H Hgb 10.4 L D-Dimer Creatinine 1.12 H Troponin I 0.032 H B-Natriuretic Peptide 03/11/20 03/11/20 03/11/20 12:22 14:07 15:49 WBC Hgb D-Dimer 5.85 H Creatinine Troponin I 0.033 H B-Natriuretic Peptide 389.7 H 03/11/20 03/11/20 03/12/20 17:27 20:02 03:57 WBC Hgb D-Dimer Creatinine 1.17 H Troponin I 0.034 H 0.027 B-Natriuretic Peptide 03/12/20 03/12/20 03/13/20 03:57 10:05 04:33 WBC Hgb 7.4 L 7.8 L 7.6 L D-Dimer Creatinine Troponin I B-Natriuretic Peptide EKG Reviewed by me: Yes (Tele - V-pacing) Hospitalist ROS - Medication Medications: Active Medications Generic Name Dose Route Start Last Admin Trade Name Freq PRN Reason Stop Dose Admin Acetaminophen 650 mg 03/11/20 14:57 03/16/20 18:22 Tylenol PO 650 mg Q4H PRN Administration Headache/Fever/Mild Pain (1-3) Hydrocodone Bitart/Acetaminophen 1 tab 03/11/20 14:57 03/17/20 08:43 [place] 5/325 PO 1 tab Q4H PRN Administration Moderate Pain (4-6) Hydrocodone Bitart/Acetaminophen 1 tab 03/12/20 14:00 03/17/20 06:03 [place] 10/325 PO 1 tab Q8HR GONZALO Administration Apixaban 5 mg 03/16/20 09:00 03/17/20 08:44 Eliquis PO 5 mg BID GONZALO Administration Carvedilol 3.125 mg 03/11/20 21:00 03/17/20 08:42 Coreg PO 3.125 mg BID GONZALO Administration Furosemide 40 mg 03/12/20 09:00 03/17/20 08:44 Lasix PO 40 mg DAILY GONZALO Administration Levofloxacin 500 mg 03/15/20 06:00 03/17/20 06:03 Levaquin PO 500 mg 0600 GONZALO Administration Lisinopril 10 mg 03/12/20 09:00 03/17/20 08:44 Zestril PO 10 mg DAILY GONZALO Administration Lorazepam 1 mg 03/12/20 09:23 03/14/20 21:36 Ativan PO 1 mg BIDPRN PRN Administration Anxiety Mometasone Furoate/Formoterol Fumar 1 puff 03/12/20 18:30 03/17/20 07:04 Dulera 200 Mcg/5 Mcg Inhaler INH 1 puff BID-RT GONZALO Administration Montelukast Sodium 10 mg 03/12/20 21:00 03/16/20 20:45 Singulair PO 10 mg HS GONZALO Administration Ondansetron HCl 4 mg 03/11/20 14:57 03/17/20 03:17 Zofran Odt PO 4 mg Q6H PRN Administration Nausea/Vomiting Ondansetron HCl 8 mg 03/12/20 15:00 03/17/20 08:43 Zofran Odt PO 8 mg TID GONZALO Administration Pantoprazole Sodium 40 mg 03/12/20 21:00 03/17/20 08:42 Protonix PO 40 mg BID GONZALO Administration Polyethylene Glycol 17 gm 03/14/20 09:00 03/17/20 08:44 Miralax PO Not Given DAILY GONZALO Potassium Chloride 20 meq 03/13/20 09:00 03/17/20 08:43 K-Dur PO 20 meq DAILY GONZALO Administration Promethazine HCl 25 mg 03/12/20 09:23 03/17/20 06:02 Phenergan PO 25 mg Q6HR PRN Administration Nausea - Exam General Appearance: NAD, awake alert Eye: PERRL, anicteric sclera ENT: normocephalic atraumatic, no oropharyngeal lesions Neck: supple, symmetric, no JVD, no thyromegaly, no lymphadenopathy Heart: RRR, no gallops, no rubs, normal peripheral pulses Heart - other findings: S1, S2 Respiratory: CTAB, no wheezes, no rales, no ronchi, normal chest expansion Gastrointestinal: soft, non-tender, non-distended, normal bowel sounds, no palpable masses Gastrointestinal - other findings: ostomy in place, surgical incision intact Extremities: no cyanosis, no clubbing, no edema Skin: normal turgor Neurological: cranial nerve grossly intact, no new deficit Musculoskeletal: normal tone, generalized weakness Psychiatric: normal affect, A&O x 3 Hosp A/P (1) Acute pulmonary embolus Code(s): I26.99 - OTHER PULMONARY EMBOLISM WITHOUT ACUTE COR PULMONALE Status : Acute Plan: Continue Xarelto, O2 PRN (2) Acute anemia Code(s): D64.9 - ANEMIA, UNSPECIFIED Status: Acute Plan: s/p 1u PRBC's, serial H/H monitoring (3) CKD (chronic kidney disease), stage III Code(s): N18.3 - CHRONIC KIDNEY DISEASE, STAGE 3 (MODERATE) Status: Chronic (4) Colon cancer metastasized to liver Code(s): C18.9 - MALIGNANT NEOPLASM OF COLON, UNSPECIFIED; C78.7 - SECONDARY MALIG NEOPLASM OF LIVER AND INTRAHEPATIC BILE DUCT Status: Chronic (5) Pseudomonas urinary tract infection Code(s): N39.0 - URINARY TRACT INFECTION, SITE NOT SPECIFIED; B96.5 - PSEUDOMONAS (MALLEI) CAUSING DISEASES CLASSD ELSWHR Status: Acute Plan: Continue Levaquin - Plan continue antibiotics, PT/OT, rn social work, out of bed/ambulate, DVT proph w/ SCDs Stable currently Continue Xarelto 20mg daily Serial H/H Convert to Levaquin 500mg po daily OOB/PT evaluation Miralax daily Rehab bed pending AM lab: H/H
[2020-03-17 17:00] VITALS: TEMP 97.9
[2020-03-17 17:23] VITALS: BP 176/90
--- NOTE | 2020-03-17 17:57 | PDOC.CPN ---
- Subjective Date: 03/17/20 Time: 17:55 Interval history: She feels a lot better after 1 unit PRBC's. More energy. - Review of Systems General: reports: fatigue. denies: fever/chills, weight/appetite/sleep changes , night sweats Respiratory: denies: cough, congestion, shortness of breath, exercise intolerance Cardiovascular: denies: chest pain, palpitation, edema, paroxysmal nocturnal dyspnea, orthopnea Gastrointestinal: denies: nausea, vomiting, diarrhea, constipation, abd pain, GI bleeding Musculoskeletal: denies: pain, tenderness, stiffness, swelling, arthritis/ arthralgias Neurological: denies: numbness, syncope, seizure, weakness - Objective Allergies/Adverse Reactions: Allergies Allergy/AdvReac Type Severity Reaction Status Date / Time rifampin AdvReac hallucinati Verified 10/14/19 00:39 ons Vital Signs & Weight: Vital Signs Temp Pulse Pulse Resp BP BP BP 03/17/20 16:00 97.9 F 70 16 130/73 03/17/20 12:18 97.7 F 75 16 143/72 H 03/17/20 10:49 77 176/90 H 147/72 H 03/17/20 08:36 98.2 F 79 16 146/72 H Pulse Ox 03/17/20 16:00 97 03/17/20 12:18 97 03/17/20 10:49 03/17/20 08:36 95 Admit Weight 156 lb Weight 139 lb 11.2 oz - Physical Exam General: alert & oriented x3 HEENT: mucus membranes moist Neck: supple neck Cardiac: regular rate and rhythm Lungs: normal breath sounds Neuro: grossly intact Abdomen: active bowel sounds Extremities: no edema Skin: clear Musculoskeletal: no pain - Labs Result Diagrams: 03/17/20 03:58 03/13/20 04:33 Troponin/CKMB CK-MB (CK-2) 0.7 ng/mL (0-6.6) 03/11/20 10:26 Troponin I 0.027 ng/mL (< 0.028) 03/11/20 20:02 - Telemetry Sinus rhythms and dysrhythmias: other (AV paced.) - Assessment/Plan Assessment/Plan: 1. Acute PE 2. Chronic systolic heart failure 3. AICD in place. 4. Hx of LV thrombus on chronic eliquis. 5. Recent surgery debulking mass on liver. 6. Anemia PLAN: - Continue Eliquis. - Better after blood transfusion. - To rehab when bed available. - Will sign off. Please call with any questions.
--- NOTE | 2020-03-17 20:59 | DIS ---
DATE OF ADMISSION: 03/11/2020 DATE OF DISCHARGE: 03/17/2020 DISCHARGE DIAGNOSES: 1. Acute left lower lobe pulmonary embolus. 2. Acute anemia, status post 1 unit of packed red blood cells. 3. Chronic kidney disease stage 3. 4. Colon cancer with metastasis to the liver, status post partial hepatectomy. 5. Pseudomonas urinary tract infection, improved. 6. Deconditioning. CONSULTATIONS: 1. Dr. Leigh with Cardiology Service. 2. Medical Oncology Service. PERTINENT LABORATORY AND X-RAY FINDINGS: Creatinine ranged between 1.01 to 1.17 , estimated GFR ranged between 46 to 55. Troponin I ranged between 0.027 to 0.034. BNP 390, previously noted 2596 on 12/17/2016. Albumin 4.2, lipase 33. CBC showed a hemoglobin ranging between 7.4 to 10.4. D-dimer 5.85. COVID-19 PCR not detected, 03/11/2020. Urine culture dated 03/11/2020, showed greater than 100,000 colonies of Pseudomonas aeruginosa, pansensitive. Blood cultures x2 dated 03/11/2020, showed no growth at 5 days. Portable chest x-ray dated 03/11/2020, showed right-sided pleural effusion with associated atelectasis. CT angiogram of the chest dated 2019, showed pulmonary embolus in the left lower lobe, bilateral pleural effusions, right greater than left with adjacent atelectasis. Bilateral lower extremity venous Doppler study showed no evidence for DVT. HOSPITAL COURSE: The patient initially presented with significant history of partial hepatectomy due to metastatic colon cancer to the liver, status post surgical intervention. The patient presented with pleuritic chest pain and cough, initially undergoing plain radiographic imaging of the chest and subsequent CT angiogram. The patient was noted with a left lower lobe pulmonary embolus, on previous chronic anticoagulation with Eliquis, which was held due to the recent hepatectomy. The patient was placed on subcutaneous Lovenox and given oxygen support. The patient was also initiated on IV cefepime and Levaquin after concern for potential pulmonary infection/pneumonia. The patient was evaluated by the Cardiology Service, who recommended initially transitioning to Xarelto as it was unclear if the patient had a true Eliquis failure versus perioperative discontinuation of Eliquis due to the hepatectomy. The patient clinically stabilized with anticoagulation and transitioned off oxygen support. The patient did receive 1 unit of packed red blood cells during the hospital course, however , no specific acute blood loss was identified. Due to the patient's overall deconditioned status, the patient was deemed appropriate candidate for ongoing inpatient rehabilitation with aggressive physical and occupational therapy. The patient has been approved and we will transfer to [facility] on 03/17/2020. I have examined the patient at the time of discharge and discussed followup instructions. The patient verbalized understanding and agreement and ready for discharge on 03/17/2020. DISCHARGE MEDICATIONS: 1. Symbicort 160/4.5 one puff inhaled b.i.d. 2. Cyclobenzaprine 10 mg p.o. t.i.d. p.r.n. 3. Lasix 40 mg p.o. daily. 4. [place] 10/325 mg 1 tablet p.o. q.8 hours p.r.n. pain. 5. Ativan 1 mg p.o. b.i.d. p.r.n. 6. Singulair 10 mg p.o. at bedtime. 7. Nortriptyline 50 mg p.o. at bedtime p.r.n. 8. Protonix 40 mg p.o. b.i.d. 9. K-Dur 20 mEq p.o. daily. 10. Ventolin HFA one puff inhaled q.4 hours p.r.n. 11. Ambien 10 mg p.o. at bedtime p.r.n. 12. Eliquis 5 mg p.o. b.i.d. 13. Coreg 3.125 mg p.o. b.i.d. 14. Levaquin 500 mg p.o. daily until 03/21/2020. 15. Zestril 10 mg p.o. daily. FOLLOWUP: Primary care provider, Dr. Von Roberts. Dr. Leigh with [facility] Cardiology Service. Dr. Baron Oneil with Medical Oncology Service. CONDITION ON DISCHARGE: Fair. ACTIVITY: Ad stefanie, rolling walker with standby assistance. Fall risk precautions. DIET: Heart healthy with Ensure Clear b.i.d. CODE STATUS: Full. DISPOSITION: Discharged to [facility] in [place], [place] on 03/17/2020. TIME SPENT: Total time preparing and coordinating discharge, 34 minutes. Job ID: [id number] [facility]
--- NOTE | 2020-03-19 06:25 | PQF ---
Dear : Kelby Rogers Date 03/19/20 Please exercise your independent, professional judgment in responding to the clarification form. Clinical indicators are provided on the bottom of this form for your review Can you please further clarify if PE is a complication of recent surgery or not? Please check appropriate box(es): [ x ] Pulmonary artery embolism is a complication of surgery [ ] Pulmonary artery embolism is NOT a complication of surgery [ ] Pulmonary vein embolism is a complication of surgery [ ] Pulmonary vein embolism is NOT a complication of surgery [ ] Other diagnosis please specify [ ] Unable to determine Physician Signature: Date/Time: For continuity of documentation, please document condition throughout progress notes and discharge summary. Thank You. To be completed by CDI/Coding staff for physician review: Present Clinical Indicators - Signs / Symptoms / Labs Results and Location in Medical Record [ x ] CT chest with contrast found to have left lower lobe pulmonary embolism Consult pg.1 Dr. Leigh [ x ] She recently had surgery, has excision of metastatic tumors from her colon cancer to her liver Consult pg.1 Dr. Leigh [ x ] Eliquis stop one week before her procedure and restarted about 4 days afterwards Consult pg.1 Dr. 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 Leigh [ x ] patient presented with pleuritic chest pain and cough DS 03/17 Present Risk Factors Results and Location in Medical Record [ x ] Colon cancer since [address] Leigh [ x ] Dilated cardiomyopathy Consult pg.1 Dr. Leigh [ x ] DVT with chronic anticoagulation with eliquis Consult pg.1 Dr. Leigh [ x ] Liver METS H and P pg.1 [ x ] HTN Consult pg.1 Dr. Leigh [ x ] UTI Hospitalist PN pg.7 [ x ] Status post recent partial hepatectomy H and P pg.1 [ x ] 64 years old female ED Notes 03/11 [ x ] Former Smoker HP 03/11 Present Treatments Results and Location in Medical Record [ x ] Chest/Thorax CTA 03/11 [ x ] Chest X ray 03/11 [ x ] Cardiology Consult Dr. Leigh [ x ] Levaquin 500mg PO SEP [ x ] Xarelto 20mg PO SEP [ x ] IV Fluids SEP [ x ] Lovenox 70mg Subq SEP 27 [ x ] Eliquis 5mg Oral SEP 27 CDS/Plastic Finisher Signature: Julian Alvarez Phone #: ext [phone] Date: 03/19/2020 This is a permanent part of the Medical Record [facility]
--- NOTE | 2020-03-19 06:27 | PQF ---
Dear : Kelby Rogers Date 03/19/20 Please exercise your independent, professional judgment in responding to the clarification form. Clinical indicators are provided on the bottom of this form for your review Can you please further clarify if pneumonia is ruled in or ruled out? Pneumonia [ ] Ruled in diagnosis [ ] Continue to treat [ ] Resolved [ x ] Ruled out diagnosis [ ] Improving [ ] Cannot rule out diagnosis [ ] Other diagnosis [ ] Unable to determine Physician Signature: Date/Time: For continuity of documentation, please document condition throughout progress notes and discharge summary. Thank You. To be completed by CDI/Coding staff for physician review: Present Clinical Indicators - Signs / Symptoms / Labs Results and Location in Medical Record [ x ] Right pleural effusion and adjacent atelectasis Chest X ray pg.1 [ x ] Findings are consistent with pulmonary embolism in the LLL Chest/Thorax CTA [ x ] She had cough but not productive H and P pg.1 [ x ] Possible Pneumonia H and P pg.3 [ x ] Chest X ray , bilateral lower lobe infiltrates H and P pg.3 [ x ] Chest: bilateral lower lobe rales HP 03/11 [ x ] WBC: 03/11=16.6 03/12=9.3 03/13=8.3 Labs 03/11 Present Risk Factors Results and Location in Medical Record [ x ] Colon cancer since [address] Leigh [ x ] Dilated cardiolmypathy Consult pg.1 Dr. Leigh [ x ] DVT with chronic anticoagulation with eliquis Consult pg.1 Dr. Leigh [ x ] HTN Consult pg.1 Dr. Leigh [ x ] UTI Hospitalist PN pg.7 [ x ] CKD 3 H and P pg.1 [ x ] Liver METS H and P pg.1 [ x ] 64 years old female ED Notes 03/11 [ x ] Former Smoker HP 03/11 [ x ] Asthma ED Notes 03/11 Present Treatments Results and Location in Medical Record [ x ] Chest X ray 03/11 [ x ] Levaquin 500mg PO MAR [ x ] IV Fluids MAR CDS/Civil Preparedness Coordinator Signature: CarlieJulian desai Frederic Phone #: ext [phone] Date: 03/19/2020 This is a permanent part of the Medical Record [facility]
--- NOTE | 2020-03-20 15:23 | EKG ---
Test Reason : Blood Pressure : / mmHG Vent. Rate : 090 BPM Atrial Rate : 090 BPM P-R Int : 154 ms QRS Dur : 110 ms QT Int : 416 ms P-R-T Axes : 021 -59 109 degrees QTc Int : 508 ms Electronic ventricular pacemaker Confirmed by LEELA HICKS MD ([id number]), magazine editor BARBARA TAM ([id number]) on 03/20/2020 3:23:35 PM Referred By: Confirmed By:LEELA HICKS MD
== END 2020-03-17 17:15 | DRG 300 ==
LOC: ERS 09:52 → 2NO 14:57
PROVIDERS: ADMIT Internal Medicine; ATTEND Internal Medicine
PROC: 30233N1 Transfusion of Nonautologous Red Blood Cells into Peripheral Vein, Percutaneous Approach (ICD-10-PCS; principal; 2020-03-16)
DX: T81.718A Complication of other artery following a procedure, not elsewhere classified, initial encounter (principal); I42.0 Dilated cardiomyopathy; N39.0 Urinary tract infection, site not specified; I13.0 Hypertensive heart and chronic kidney disease with heart failure and stage 1 through stage 4 chronic kidney disease, or unspecified chronic kidney disease; I50.22 Chronic systolic (congestive) heart failure; I26.99 Other pulmonary embolism without acute cor pulmonale; Y83.4 Other reconstructive surgery as the cause of abnormal reaction of the patient, or of later complication, without mention of misadventure at the time of the procedure; Z20.828 Contact with and (suspected) exposure to other viral communicable diseases; D63.0 Anemia in neoplastic disease; N18.3 Chronic kidney disease, stage 3 (moderate); B96.5 Pseudomonas (aeruginosa) (mallei) (pseudomallei) as the cause of diseases classified elsewhere; J45.909 Unspecified asthma, uncomplicated; Z85.038 Personal history of other malignant neoplasm of large intestine; Z79.51 Long term (current) use of inhaled steroids; Z85.05 Personal history of malignant neoplasm of liver; Z79.01 Long term (current) use of anticoagulants; Z90.49 Acquired absence of other specified parts of digestive tract; Z79.899 Other long term (current) drug therapy; Z93.3 Colostomy status; Z95.810 Presence of automatic (implantable) cardiac defibrillator; Z88.1 Allergy status to other antibiotic agents
CPT/HCPCS: 36415; 36430; 36600; 71045; 71275; 80048; 80053; 81003; 81015; 82550; 82553; 83690; 83880; 84484; 85014; 85018; 85025; 85049; 85379; 86850; 86900; 86901; 87040; 87077; 87086; 87186; 87635; 93005; 93306; 93798; 93970; 96361; 96372; 96374; 96375; J0692; J1650; J1956; J2270; J2405; J3010; J3490; P9016; Q0162; Q0169; Q9967; U0003

== ENCOUNTER 2020-09-29 08:24 | Outpatient (CLI) | payer MEDICARE ==
[2020-09-29] MEDS ORDERED: Iopamidol 370 76% 100 ML VIAL ONE (12:02)
== END 2020-09-29 08:25 | disposition home or self-care (01) ==
LOC: CT 08:24
PROVIDERS: ATTEND Internal Medicine Hematology & Oncology
DX: C18.5 Malignant neoplasm of splenic flexure (principal); C22.9 Malignant neoplasm of liver, not specified as primary or secondary; R91.8 Other nonspecific abnormal finding of lung field
CPT/HCPCS: 71260; 74177; 82565; Q9967

== ENCOUNTER 2021-05-26 10:10 | Outpatient (CLI) | payer MEDICARE | END 2021-05-26 10:11 | disposition home or self-care (01) | LOC: BICCT 10:10 | PROVIDERS: ATTEND Internal Medicine Hematology & Oncology | DX: C18.5 Malignant neoplasm of splenic flexure (principal); R91.1 Solitary pulmonary nodule | CPT/HCPCS: 71250; 74177 ==

== ENCOUNTER 2021-09-27 13:34 | Outpatient (CLI) | payer MEDICARE | END 2021-09-27 13:35 | disposition home or self-care (01) | LOC: BICCT 13:34 | PROVIDERS: ATTEND Internal Medicine Hematology & Oncology | DX: C18.5 Malignant neoplasm of splenic flexure (principal) | CPT/HCPCS: 74177 ==

== ENCOUNTER 2022-10-25 13:38 | Outpatient (CLI) | payer MEDICARE ==
[~2022-10-25 13:38] MED LIST changes: -Atropine Sulfate 0.25 MG in Sodium Chloride 0.9% 50 ML IVPB SCH; -BEVACIZUMAB IVPB SCH; -Fluorouracil 700 MG in Sodium Chloride 0.9% 50 ML IVPB SCH; +Iopamidol 370 76% 100 ML VIAL ONE; -Irinotecan 300 MG in Sodium Chloride 0.9% 500 ML IVPB SCH; -Palonosetron HCl 0.25 MG in Sodium Chloride 0.9% 50 ML IVPB SCH; -SODIUM CHLORIDE 0.9% IVPB SCH
== END 2022-10-25 13:39 | disposition home or self-care (01) ==
LOC: BICCT 13:38
PROVIDERS: ATTEND Internal Medicine Hematology & Oncology
DX: C18.5 Malignant neoplasm of splenic flexure (principal); D50.0 Iron deficiency anemia secondary to blood loss (chronic)
CPT/HCPCS: 74177; Q9967

== ENCOUNTER 2022-11-20 06:04 | Day surgery (SDC) | payer MEDICARE ==
[2022-11-16 15:25] VITALS: BMI 25.0
[2022-11-20] MEDS ORDERED: PROPOFOL 200 MG/20 ML VIAL ONE (08:02)
[2022-11-20] MEDS ORDERED: Lidocaine 1% PF 5 ML VIAL ONE (08:02)
== END 2022-11-20 09:26 | disposition home or self-care (01) ==
LOC: SDC 06:04
PROVIDERS: ATTEND Internal Medicine
PROC: 0D758ZZ Dilation of Esophagus, Via Natural or Artificial Opening Endoscopic (ICD-10-PCS; principal; 2022-11-20)
PROC: 0DJD8ZZ Inspection of Lower Intestinal Tract, Via Natural or Artificial Opening Endoscopic (ICD-10-PCS; 2022-11-20)
DX: K31.811 Angiodysplasia of stomach and duodenum with bleeding (principal); R13.10 Dysphagia, unspecified; I13.0 Hypertensive heart and chronic kidney disease with heart failure and stage 1 through stage 4 chronic kidney disease, or unspecified chronic kidney disease; N18.9 Chronic kidney disease, unspecified; I50.9 Heart failure, unspecified; K21.9 Gastro-esophageal reflux disease without esophagitis; M19.90 Unspecified osteoarthritis, unspecified site; J45.909 Unspecified asthma, uncomplicated; E78.00 Pure hypercholesterolemia, unspecified; Z85.038 Personal history of other malignant neoplasm of large intestine; Z86.711 Personal history of pulmonary embolism; Z87.891 Personal history of nicotine dependence; Z79.01 Long term (current) use of anticoagulants; Z79.899 Other long term (current) drug therapy; Z88.1 Allergy status to other antibiotic agents; Z93.3 Colostomy status; Z90.49 Acquired absence of other specified parts of digestive tract; Z95.810 Presence of automatic (implantable) cardiac defibrillator
CPT/HCPCS: J2704

== ENCOUNTER 2023-04-27 07:57 | Outpatient (CLI) | payer MEDICARE ==
[2023-04-27] MEDS ORDERED: Iopamidol 370 76% 100 ML VIAL ONE (09:56)
== END 2023-04-27 07:58 | disposition home or self-care (01) ==
LOC: CT 07:57
PROVIDERS: ATTEND Internal Medicine Hematology & Oncology
DX: C18.9 Malignant neoplasm of colon, unspecified (principal)
CPT/HCPCS: 74177

== ENCOUNTER 2023-10-18 12:15 | Outpatient (CLI) | payer MEDICARE ==
[2023-10-18] MEDS ORDERED: Iopamidol 370 76% 100 ML VIAL ONE (12:32)
[2023-10-18 13:40] LABS: #Basophils Less than 0.03 10x3/uL (0.0-0.2); #Eosinphils Less than 0.03 10x3/uL (0.0-0.7); %Lymphocytes 10.9 % (21.0-51.0); %Monocytes 0.3 % (0.0-10.0); %Neutrophils 88.3 % (42.0-75.0); Hemoglobin 13.3 g/dL (12.0-16.0); Mean Corpuscular HGB CONC 34.1 g/dL (32.0-36.0); Mean Corpuscular Hemoglobin 30.2 pg (27.0-31.0); Mean Corpuscular Volume 88.6 fL (78.0-98.0); Mean Platelet Volume 10.9 fL (7.4-10.4); Platelet Count 267 10x3/uL (130-400)
[2023-10-18 13:53] LABS: Follow-up Hematology Comp? YES; Follow-up Result - Hematology REPORT FAXED
[2023-10-18 13:59] LABS: T4 4.85 ug/dL (4.87-11.72); Thyroid Stimulating Hormone 0.316 uIU/mL (0.35-4.94)
[2023-10-18 14:29] LABS: ALT (SGPT) 30 U/L (8-55); AST (SGOT) 52 U/L (5-34); Albumin 4.9 g/dL (3.4-4.8); Alkaline Phosphatase 147 U/L (40-110); Anion Gap 19 mmol/L (10-20); BUN (Urea Nitrogen) 24 mg/dL (9.8-20.1); Bilirubin, Direct 0.3 mg/dL (0.1-0.3); Bilirubin, Total 0.7 mg/dL (0.2-1.2); Calc. Creatinine Clearance 0 mL/min (70-130); Calcium 9.9 mg/dL (7.8-10.44); Carbon Dioxide 20 mmol/L (23-31); Chloride 100 mmol/L (98-107); Estimated GFR 44; Globulin 3.3 g/dL (2.4-3.5); Glucose 152 mg/dL (80-115); LDH 1415 U/L (125-220); Phosphorus 3.1 mg/dL (2.3-4.7); Potassium 4.1 mmol/L (3.5-5.1); Protein, Total 8.2 g/dL (5.8-8.1); Sodium 135 mmol/L (136-145); Uric Acid 7.3 mg/dL (2.6-6.0)
[2023-10-18 16:12] LABS: Follow-up Chemistry Comp? YES; Follow-up Result - Chemistry REPORT FAXED
== END 2023-10-18 12:16 | disposition home or self-care (01) ==
LOC: CT 12:15
PROVIDERS: ATTEND Internal Medicine Hematology & Oncology
DX: C18.5 Malignant neoplasm of splenic flexure (principal); D50.0 Iron deficiency anemia secondary to blood loss (chronic); M47.817 Spondylosis without myelopathy or radiculopathy, lumbosacral region
CPT/HCPCS: 74177; 80053; 82248; 83615; 84100; 84436; 84443; 84550; 85025; J1642; Q9967